=== PATIENT | male | born 1955 | race Caucasian/White ===

== ENCOUNTER 2023-11-17 08:26 | Outpatient (OUT) | payer BC, MEDICARE, SELFPAY ==
[2023-11-17 10:06] LABS: Anion Gap 6.6; Carbon Dioxide 34.9 mmol/L (21.0-32.0); Chloride 102 mmol/L (98-107); Estimated GFR (African America >60 (>=60); Estimated GFR (Non-African Ame >60 (>=60); Glucose 113 mg/dL (74-106); Potassium 3.5 mmol/L (3.5-5.1); Sodium 140 mmol/L (136-145)
[2023-11-17 10:19] LABS: Hematocrit 46.8 % (42.0-54.0); Hemoglobin 15.3 g/dL (14.0-18.0); Mean Corpuscular HGB Conc 32.7 g/dL (29.9-35.2); Mean Corpuscular Hemoglobin 32.6 pg (25.9-34.0); Mean Corpuscular Volume 99.8 fL (80.0-94.0); Mean Platelet Volume 10.4 fL (9.5-13.5); Platelet Count 337 10^3/uL (150-450); Red Blood Count 4.69 10^6/uL (4.70-6.10); Red Cell Distribution Width 13.2 % (11.0-15.0); White Blood Count 24.1 10^3/uL (4.0-11.0)
[2023-11-17 12:01] LABS: Band Neutrophils Absolute 0.5 10^3/uL (0.0-0.3); Eosinophils Absolute Manual 0.24 10^3/uL (0.00-0.70)
[2023-11-17 12:02] LABS: Monocytes Absolute Manual 1.44 10^3/uL (0.30-0.80)
[2023-11-17 12:04] LABS: Lymphocytes Absolute Manual 10.12 10^3/uL (1.20-3.80)
[2023-11-17 13:01] LABS: INR 1.01; Partial Thromboplastin Time 29.3 sec (22.3-36.2); Prothrombin Time 10.7 sec (9.0-11.6)
== END 2023-11-17 08:27 | disposition home or self-care (01) ==
LOC: PST 08:33
PROVIDERS: Visit Provider Internal Medicine
DX: D49.1 Neoplasm of unspecified behavior of respiratory system (principal)
CPT/HCPCS: 80048; 85027; 85610; 85730

== ENCOUNTER 2023-11-25 06:28 | Day surgery (SDC) | payer BC, MEDICARE, SELFPAY ==
[2023-11-17 09:47] VITALS: BP 140/78; PULSE 77; RESP 22; TEMP 36.4; O2SAT 90; BMI 29.0
[2023-11-25] VITALS (17 sets, daily range): BP systolic 83–136; BP diastolic 52–82; PULSE 67–78; RESP 8–23; TEMP 36.6; O2SAT 91–96; BMI 28.7
--- OUTSIDE RECORDS SUMMARY | 2023-11-25 06:30 | XMS_ITS | CCD ---
Author Name Unknown Address [address] [place] [address] Organization [facility] Care Team Providers Care Manager Biologics Name Role Phone Mike Mark Unavailable Unavailable Unavailable Mike Mark Primary Care Physician Usman Ford Attending Unavailable Dr. Landry Rand Referring Unavail able Usman Ford Referring Unavailable Usman Ford Attending Unavailable Sarah Vázquez Unavailable Unavailable SAMSA, RAY Ligia Admitting Unavailable SAMSA RAY P Attending Unavailable KAYLIE RAY P Referring Unavailable NOHELIA CUEVAS Admitting Unavailable NOHELIA CUEVAS Attending Unavailable Andrew CAGLE Attending Unavailable Mika KO Admitting Unavailable Tien Poole Consulting Unavailable Tien Poole Consulting Unavailable Tien Poole Consulting Unavailable SAMSA, RAY P Referring Unavailable SAMSA, RAY P Admitting Unavailable SAMSA RAY P Attending Unavailable Mike Kimbrough Primary Care Provide r USMAN FORD Attending Unavailable MIKE MARK Primary Care Unavailable Allergies Allergy Classification Reported Allergen(s) Allergy Type Date of Onset Reaction(s) Facility (9 sources) Penicillins; Translations: [Penicillins] Allergy to drug (finding) 09-08-2023 [facility] 3 Repository (6 sources) Penicillin; Translations: [penicillin] Drug Allergy [facility] (1 source) Penicillins Drug Allergy 09-08-2023 Unknown [facility] Medications Current Medications Medication Drug Class(es) Dates Sig (Normalized) Sig (Original) [id number] 200 actuat albuterol 0.09 mg/actuat metered dose inhaler (14 sources) beta2-Adrenergic Agonist Start: 03-07-2020 take 2 puff(s) by inhalation every six hours Pro-Air HFA CFC free 90 mcg/inh MDI 2 puff(s), Inhalation, q6hr Shortness of breath or wheezing, 1 EA, Refill(s) 6, 90 mcg, [facility], 180, cm, 03/07/20 8:53:00 EDT, Height/Length Measured, 108.8, kg, 03/07/20 8:53:00 EDT, Weight Measured Start Date: 03/07/20 Status: Ordered take 2 puff(s) by in halation every four hours albuterol 90 mcg/actuation inhaler Inhal e 2 puffs every 4 hours if needed. 0 Active take 1-2 puff(s) by inhalation every four to six hours as needed Albuterol 90 MCG/ACT AERS INHALE 1 TO 2 PUFFS EVERY 4 TO 6 HOURS NEEDED AND DIRECTED. Quantity: 0 Refills: 0 Ordered: 01-Oct-2021 DO Active albuterol 0.833 mg/ml / ipratropium bromide 0.167 mg/ml inhalation solution (9 sources) Anticholinergic, beta2-Adrenergic Agonist take 3 mL by inhalation every four hours as needed ipratropium-albuteroL (Duo-Neb) 0.5-2.5 mg/3 mL nebulizer solution Take 3 mL by nebulization every 4 hours if needed. 0 Active take 1 [IU] by inhal ation every four hours as needed Ipratropium-Albuterol 0.5-2.5 (3) MG/3ML Inhalation Solution USE 1 UNIT DOSE IN NEBULIZER EVERY 4 HOURS NEEDED. Quantity: 0 Refills: 0 Ordered: 01-Oct-2021 DO Active amLODIPine 5 mg oral tablet (1 source) Dihydropyridine Calcium Channel Mike Start: 02-14-2020 take 1 tablet by mouth once daily amLODIPine 5 mg Tab 5 mg = 1 tab(s), Oral, Daily, # 30 tab(s), Refills(s) 1, Pharmacy: [facility], 168, cm, 02/12/20 15:21:00 EDT, Height/Length Measured, 104.1, kg, 02/14/20 5:13:00 EDT, Weight Measured Start Date: 02/14/20 Status: Ordered aspirin 81 mg delayed release oral tablet (14 sources) Platelet Aggregation Inhibitor, Nonsteroidal Anti-inflammatory Drug Start: 01-04-2020 take 1 tablet by mouth once daily aspirin 81 mg Oral EC Tab 81 mg = 1 tab(s), Oral, Daily, Refills(s) 0 Start Date: 01/04/20 Status: Ordered atorvastatin 40 mg oral tablet (14 sources) HMG-CoA Reductase Inhibitor Start: 02-14-2020 take 1 tablet by mouth at bedtime atorvastatin 40 mg Tab 40 mg = 1 tab(s), Oral, Bedtime, # 30 tab(s), Refills(s) 1, Pharmacy: [facility] 1986, 168, cm, 02/12/20 15:21:00 EDT, Height/Length Measured, 104.1, kg, 02/14/20 5:13:00 EDT, Weight Measured Start Date: 02/14/20 Status: Ordered Azithromycin (5 sources) Macrolide Antimicrobial Start: 04-09-2020 azithromycin 250 mg Tab See Instructions, 250 mg on / / Fri, # 12 EA, Refills(s) 3, Pharmacy: [facility], 182, cm, 04/09/20 16:06:00 EDT, Height/Length Measured, 109, kg, 04/09/20 16:06:00 EDT, Weight Measured Start Date: 04/09/20 Status: Ordered Calcium, Magnesium and Zinc oral tablet (5 sources) Start: 01-04-2020 take 2 tablets by mouth once daily Calcium, Magnesium and Zinc oral tablet 2 tab(s), Oral, Daily, Refill(s) 0 Start Date: 01/04/20 Status: Ordered carvedilol 6.25 mg oral tablet (8 sources) alpha-Adrenergic Mike, beta-Adrenergic Mike Start: 10-12-2023 End: 10-11-2024 take 1 tablet by mouth twice daily at mealtime carvedilol (Coreg) 6.25 mg tablet Indications: Primary hypertension Take 1 tablet (6.25 mg) by mouth 2 times a day with meals. 180 tablet 3 10/12/2023 10/11/2024 Active Start: 06-19-2023 take 1 tablet by kimi th twice daily Coreg 6.25 mg Tab 6.25 mg = 1 tab(s), Oral, BID, # 60 tab(s), Refills(s) 0 Start Date: 06/19/23 Status: Ordered Start: 11-25-2022 take 1 tablet by kimi th twice daily Carvedilol 6.25 MG Oral Tablet Take 1 tablet twice daily Quantity: 180 Refills: 3 Ordered: 25-Nov-2022 Usman Ford MD Start : 25-Nov-2022 Active replaces metoprolol famotidine 20 mg oral tablet (9 sources) Histamine-2 Receptor Antagonist End: 11-11-2023 take 1 tablet by mouth once daily famotidine (Pepcid) 20 mg tablet Take 1 tablet (20 mg) by mouth once daily. 0 11/11/2023 Discontinued (Other) 30 actuat fluticasone furoate 0.1 mg/actuat / umeclidinium 0.0625 mg/actuat / vilanterol 0.025 mg/actuat dry powder inhaler (9 sources) Anticholinergic, Corticosteroid, beta2-Adrenergic Agonist Trelegy Ellipta 100-62.5-25 mcg blister with device Inhale see administration instructions. As directed 0 Active folic acid 1 mg oral tablet (9 sources) take 1 tablet by mouth once daily folic acid (Folvite) 1 mg tablet Take 1 tablet (1 mg) by mouth once daily. 0 Active 12 hr guaiFENesin 600 mg extended release oral tablet (4 sources) Start: 06-21-2023 take 2 tablets by mouth twice daily Mucinex 600 mg Tab-ER 1,200 mg = 2 tab(s), Oral, BID, # 20 tab(s), Refills(s) 0, Pharmacy: [facility], 182.9, cm, 06/18/23 18:29:00 EDT, Height/Length Dosing, 100, kg, 06/18/23 18:29:00 EDT, Weight Dosing Start Date: 06/21/23 Status: Ordered ipratropium bromide 0.2 mg/ml inhalation solution (1 source) Anticholinergic Start: 09-17-2023 ipratropium (Atrovent) 0.02 % nebulizer solution lisinopril 5 mg oral tablet (1 source) Angiotensin Converting Enzyme Inhibitor Start: 02-02-2013 take 1 tablet by mouth once daily lisinopril 5 mg Tab 5 mg = 1 tab(s), Oral, Daily, Refills(s) 0, High blood pressure Start Date: 02/02/13 Status: Ordered methylPREDNISolone 4 mg oral tablet (2 sources) Corticosteroid Start: 06-21-2023 End: 06-27-2023 Medrol 4 mg Tab = 1 packet(s), Oral, As Directed, as directed on package labeling, X 6 day(s), # 21 tab(s), Refills(s) 0, Pharmacy: [facility], 182.9, cm, 06/18/23 18:29:00 EDT, Height/Length Dosing, 100, kg, 06/18/23 18:29:00 EDT, Weight Dosing Start Date: 06/21/23 Stop Date: 06/27/23 Status: Ordered 24 hr nicotine 0.583 mg/hr transdermal system (4 sources) Cholinergic Nicotinic Agonist Start: 06-21-2023 nicotine 14 mg/24 hr Transderm ER Film 1 patch(es), TransDermal, Daily, 14 EA, Refill(s) 0, [facility], 182.9, cm, 06/18/23 18:29:00 EDT, Height/Length Dosing, 100, kg, 06/18/23 18:29:00 EDT, Weight Dosing Start Date: 06/21/23 Status: Ordered pentoxifylline 400 mg extended release oral tablet (5 sources) Blood Viscosity Registered Occupational Therapist Start: 04-09-2020 take 1 tablet by mouth three times daily pentoxifylline 400 mg ER Tab 400 mg = 1 tab(s), Oral, TID, # 90 tab(s), Refills(s) 3, Pharmacy: [facility], 182, cm, 04/09/20 16:06:00 EDT, Height/Length Measured, 109, kg, 04/09/20 16:06:00 EDT, Weight Measured Start Date: 04/09/20 Status: Ordered potassium gluconate 2.5 meq oral tablet (1 source) potassium gluconate 595 mg (99 mg) tablet Take by mouth. 0 Active sacubitril 97 mg / valsartan 103 mg oral tablet (14 sources) Angiotensin 2 Receptor Mike Start: 06-19-2023 End: 11-11-2023 take 1 tablet by mouth twice daily Entresto 97-103 mg tablet Indications: Congestive heart failure, NYHA class 2 and ACC/AHA stage C (CMS/HCC) Take 1 tablet by mouth twice daily 180 tablet 3 09/08/2023 Active sildenafil 50 mg oral tablet (6 sources) Phosphodiesterase 5 Inhibitor Start: 01-04-2020 take 1 tablet by mouth once daily as needed sildenafil 50 mg Tab 50 mg = 1 tab(s), Oral, Daily, PRN sexual activity, Refills(s) 0 Start Date: 01/04/20 Status: Ordered spironolactone 25 mg oral tablet (13 sources) Aldosterone Antagonist Start: 06-19-2023 take 1 tablet by mouth once daily spironolactone 25 mg Tab 25 mg = 1 tab(s), Oral, Daily, # 30 tab(s), Refills(s) 0 Start Date: 06/19/23 Status: Ordered take 0.5 tablet by mouth once da sachin spironolactone (Aldactone) 25 mg tablet Take 0.5 tablets (12.5 mg) by mouth once daily. 0 Active Trelegy Ellipta inhalation powder (5 sources) Start: 11-27-2019 take 1 puff(s) by inhalation once daily Trelegy Ellipta inhalation powder = 1 puff(s), Inhalation, Daily, Refills(s) 0 Start Date: 11/27/19 Status: Ordered varenicline 0.5 mg oral tablet (1 source) Partial Cholinergic Nicotinic Agonist take 1 tablet by mouth twice daily varenicline (Chantix) 0.5 mg tablet Take 1 tablet (0.5 mg) by mouth 2 times a day. Take with full glass of water. 0 Active Completed/Discontinued Medications Medication Drug Class(es) Dates Sig (Normalized) Sig (Original) calcium carbonate 1500 mg oral tablet (8 sources) Calcium 600 MG TABS TAKE 1 TABLET DAILY. Quantity: 0 Refills: 0 Ordered: 01-Oct-2021 DO Active cholecalciferol 0.025 mg oral tablet (8 sources) Vitamin D take 1 tablet by mouth once daily Vitamin D3 25 MCG (1000 UT) Oral Tablet TAKE 1 TABLET DAILY. Quantity: 0 Refills: 0 Ordered: 01-Oct-2021 DO Active Magnesium (8 sources) take 1 tablet by mouth once daily Magnesium 400 MG Oral Tablet Take 1 tablet daily Quantity: 0 Refills: 0 Ordered: 01-Oct-2021 DO Active methotrexate 2.5 mg oral tablet (13 sources) Folate Analog Metabolic Inhibitor Start: 06-19-2023 methotrexate 2.5 mg Tab 20 mg = 8 tab(s), Oral, q7day, takes 8 tabs q7 days on Fridays b, # 4 tab(s), Refills(s) 0 Start Date: 06/19/23 Status: Ordered take 6 tablets by mouth every we ek methotrexate (Trexall) 2.5 mg tablet Take 6 tablets (15 mg total) by mouth 1 (one) time per week. 0 Active 24 hr metoprolol succinate 25 mg extended release oral tablet (5 sources) beta-Adrenergic Mkie take 1 tablet by mouth once daily Metoprolol Succinate ER 25 MG Oral Tablet Extended Release 24 Hour TAKE 1 TABLET DAILY. Quantity: 90 Refills: 3 Ordered: 18-Feb-2022 Landry Stockton DO Active potassium 99 mg extended release oral tablet (8 sources) take 1 tablet by mouth once daily Potassium 99 MG Oral Tablet TAKE 1 TABLET DAILY DIRECTED. Quantity: 0 Refills: 0 Ordered: 01-Oct-2021 DO Active Vitamin D3 5000 intl units oral capsule (5 sources) Start: 020 take 1 capsule by mouth once daily at mealtime Vitamin D3 5000 intl units oral capsule 5,000 International_Unit = 1 cap(s), Oral, Daily, with food Start Date: 01/04/20 Status: Ordered Problems Active Problems Problem Classification Problem Date Documented Date Episodic/Chronic Cardiac dysrhythmias (5 sources) Tachycardia 02-03-2014 Episodic Cataract (5 sources) Cataract 06-13-2016 Chronic Chronic obstructive pulmonary disease and bronchiectasis (18 sources) Chronic obstructive lung disease; Translations: [Chronic airway obstruction, not elsewhere classified] Onset: 06-18-2023 01-04-2020 Chronic Congestive heart failure; nonhypertensive (9 sources) Congestive heart failure stage C; Translations: [Congestive heart failure, unspecified] Onset: 09-08-2023 09-08-2023 Chronic Coronary atherosclerosis and other heart disease (13 sources) Arteriosclerotic vascular disease; Translations: [Cardiovascular disease, unspecified] Onset: 06-19-2023 Chronic Disorders of lipid metabolism (18 sources) Hyperlipidemia; Translations: [Other and unspecified hyperlipidemia] Onset: 06-19-2023 01-04-2020 Chronic Essential hypertension (18 sources) Hypertensive disorder; Translations: [Unspecified essential hypertension] Onset: 06-19-2023 01-04-2020 Chronic Neoplasms of unspecified nature or uncertain behavior (5 sources) Neoplastic disease 12-15-2018 Episodic Nonspecific chest pain (10 sources) Chest pain; Translations: [Chest pain, unspecified] Onset: 06-19-2023 Episodic Other circulatory disease (9 sources) H/O: angina pectoris; Translations: [Personal history of other diseases of circulatory system] Onset: 09-08-2023 09-08-2023 Episodic Other inflammatory condition of skin (6 sources) Psoriasis; Translations: [Psoriasis, unspecified] Onset: 06-19-2023 06-13-2016 Chronic Other lower respiratory disease (9 sources) Difficulty breathing; Translations: [Other respiratory abnormalities] Onset: 09-08-2023 09-08-2023 Episodic Other nutritional; endocrine; and metabolic disorders (6 sources) Obesity; Translations: [Obesity, unspecified] Chronic Other nutritional; endocrine; and metabolic disorders (5 sources) Overweight in adulthood with body mass index of 25 or more but less than 30; Translations: [Overweight] Episodic Nazanin-; endo-; and myocarditis; cardiomyopathy (except that caused by tuberculosis or sexually transmitted disease) (12 sources) Cardiomyopathy; Translations: [Other primary cardiomyopathies] Onset: 09-08-2023 11-11-2023 Chronic Peripheral and visceral atherosclerosis (9 sources) Intermittent claudication; Translations: [Peripheral vascular disease, unspecified] Onset: 09-08-2023 09-08-2023 Chronic Screening and history of mental health and substance abuse codes (5 sources) Ex-heavy cigarette smoker (20-39/day) 01-04-2020 Episodic Comment on above: Added secondary to d ocumentation in Social History. Substance-related disorders (16 sources) Smokes tobacco daily; Translations: [Tobacco use disorder] Onset: 09-08-2023 06-18-2023 Chronic Comment on above: 1 PPD; Added secondary to d ocumentation in Social History. Past or Other Problems Problem Classification Problem Date Documented Da te Episodic/Chronic Respiratory failure; insufficiency; arrest (adult) (2 sources) Acute respiratory failure; Translations: [Acute respiratory failure with hypoxia] Onset: 06-19-2023 Episodic Unclassified (1 source) Onset: 11-11-2023 11-11-2023 Results Test Name Value Interpretation Reference Range Facility CT Chest, Low Dose Screening on 11-05-2023 CT Chest, Low Dose Screening Exam Date/Time: 11/05/2023 11:44 EST Reason for Exam: [id number] Report IMPRESSION: IMPRESSION: LUNG RADS 4B: SUSPICIOUS. CHEST CT WITH AND WITHOUT CONTRAST, PET/CT AND/OR TISSUE SAMPLING DEPENDING ON THE PROBABILITY OF MALIGNANCY IN COMORBIDITIES. PET/CT MAY BE USED WITH THERE IS A GREATER THAN OR EQUAL TO 8MM SOLID COMPONENT. 5.6 CM CENTRAL LEFT LOWER LOBE MASS WITH SUSPECTED MEDIASTINAL AND LEFT HILAR ADENOPATHY. SINGLE 4 MM PROBABLE SATELLITE NODULE IN LEFT LOWER LOBE. EXAM: CT CHEST NON-CONTRAST NODULE PROTOCOL CT Chest, Low Dose Screening DATE: 11/05/2023 11:34 AM CLINICAL INDICATION: Initial Lung nodule screening [facility]# [id number] 10/21 TO 11/19//MEDICARE NPCR F17.219 COMPARISON: 01/04/2020 TECHNIQUE: Low-dose helical CT was acquired without intravenous contrast from the lung apices to bases at 5 mm slices with axial reconstruction at 2.5 mm and 2 mm reconstruction in the coronal and sagittal plane. 5 x 2 mm MIP coronal were also generated. All CT scans at this facility use dose modulation, iterative reconstruction, and/or weight based dosing when appropriate to reduce radiation dose to as low as reasonably achievable. Based on ACR recommendations only incidental findings that require additional follow-up will be included in this report. (ACR does not recommend reporting of incidental thyroid nodules detected on CT screening if they are less than 15 mm in diameter). Findings: Lung nodule: 5.6 x 3.6 x 4 cm mass in the central posterior left lower lobe with contact of slightly less than 50% of the adjacent left descending thoracic aorta. Carcinoma of primary concern. Nearby 4 mm probable satellite nodule in the superior segment left lower lobe. No additional lung nodules. Lungs: Minimal chronic apical scarring on the right unchanged from previous CT. Signs of emphysema. Consider low dose cancer screening protocol if not already enrolled in such a program Mediastinum: 1.6 cm subcarinal lymph node probable left hilar lymphadenopathy. Slightly prominent aorticopulmonary and right paratracheal lymph nodes as well. . Pleura: No effusions Report Vascular structures: Thoracic aorta intact Minimal coronary artery calcifications noted. Axilla: Stable small axillary nodes Bones: Negative Upper abdomen: Unremarkable Ordering Provider: , FINAL REPORT Dictated: 11/05/2023 12:13 pm Edward Springer MD Signed (Electronic Signature): 11/05/2023 12:13 pm Signed by: Edward Springer MD Transcribed by: SASKIA Technologist: DHAVAL [facility] Consent for Treatmenton 10-23 Consent for Treatment [id number]#1 .00TIFF [facility] Insurance Correspondenceon 12-21-2022 Insurance Correspondence [id number]# 1.00TIFF [facility] Physician Orderon 10-21-2023 Physician Order [id number]# 1.00TIFF [facility] Pulmonary Function Studieson 09-30-2023 Pulmonary Function Studies SIX-MINUTE WALK TEST: 09/23/2023 At baseline, heart rate is 67, respiratory rate 18, blood pressure 150/87. Dyspnea scale is 0. Fatigue scale is 0. After walking, heart rate is 85, respiratory rate 22, blood pressure 155/97. Dyspnea scale is 5. Fatigue scale is 6. O2 saturation 93% on room air. IMPRESSION: There is no significant oxygen desaturation with exercise. The patient was able to walk 825 feet which is 46% predicted. READ BY: Arabella Greenberg Dictated: 09/29/2023 [id number] Transcribed: 09/30/2023 [facility] Comment on above: Result Comment: Elec tronically Signed By: Carleen CAMERON, Marco X\.br\Date and Time Signed: 09/30/23 16:01 EST Consent for Treatmenton Consent for Treatment [id number]#1 .00TIFF [facility] Respiratory Therapy Noteson 09-23-2023 Respiratory Therapy Notes [id number] #1.00TIFF Normal [facility] Physician Orderon 09-15-2023 Physician Order [id number]#1 .00TIFF Normal [facility] Auto Diffon 08-05-2023 Basophils/100 WBC (Bld) 0.7 % Normal 0.0-2.0 [facility] Comment on above: Order Comment: Order Added by Discern Expert. Performed By: #### [id number] #### [facility] [address] [place] [address] 270[address] Basophils/Leukocytes Auto (Bld) [Pure # fraction] 0.1 E9/L Normal 0.0-0.2 [facility] Comment on above: Order Comment: Order Added by Discern Expert. Performed By: #### 4 [id number] #### [facility] [address] [place] [address]327 Eosinophils/100 WBC (Bld) 2.0 % Normal 0.0-8.0 [facility] Comment on above: Order Comment: Order Added by Discern Expert. Performed By: #### 4 [id number] #### [facility] [address] [place] [address] 10155 Eosinophils/Leukocytes Auto (Bld) [Pure # fraction] 0.4 E9/L Normal 0.0-0.5 [facility] Comment on above: Order Comment: Order Added by Discern Expert. Performed By: #### [id number] #### [facility] [address] [place] [address] 06928 Lymphocytes/100 WBC (Bld) 55.6 % High 14.0-50.0 [facility] Comment on above: Order Comment: Order Added by Discern Expert. Performed By: #### [id number] #### [facility] [address] [place] [address]248 Lymphocytes/Leukocytes Auto (Bld) [Pure # fraction] 9.8 E9/L High 1.0-4.0 [facility] Comment on above: Order Comment: Order Added by Discern Expert. Performed By: #### 4 [id number] #### [facility] [address] [place] [address]907 Monocytes/100 WBC (Bld) 5.3 % Normal 4.0-14.0 [facility] Comment on above: Order Comment: Order Added by Discern Expert. Performed By: #### 4 [id number] #### [facility] [address] [place] [address] 31683 Monocytes/Leukocytes Auto (Bld) [Pure # fraction] 0.9 E9/L Normal 0.2-1.0 [facility] Comment on above: Order Comment: Order Added by Discern Expert. Performed By: #### 4 [id number] #### [facility] [address] [place] [address] 90[address] Neutrophils/100 WBC (Bld) 36.4 % Normal 36.0-75.0 [facility] Comment on above: Order Comment: Order Added by Discern Expert. Performed By: #### 4 [id number] #### [facility] [address] [place] [address] 69322 Neutrophils/Leukocytes Auto (Bld) [Pure # fraction] 6.4 E9/L Normal 2.0-7.5 [facility] Comment on above: Order Comment: Order Added by Discern Expert. Performed By: #### 4 [id number] #### [facility] [address] [place] [address] 39104 CBC w/ Auto Diffon 3 Erythrocyte distribution width (RBC) [Ratio] 14.6 % High 10.9-14.2 [facility] Comment on above: Performed By: #### [id number] #### [facility] [address] [place] [address] 35263 Hematocrit (Bld) [Volume fraction] 43.5 % Normal 37.7-49.0 [facility] Comment on above: Performed By: #### 4 [id number] #### [facility] [address] [place] [address] 10108 Hemoglobin (Bld) [Mass/Vol] 14.2 g/dL Normal 13.5-17.5 [facility] Comment on above: Performed By: #### 4 [id number] #### [facility] [address] [place] [address] MCH (RBC) [Entitic mass] 32.0 pg Normal 27.0-34.0 [facility] Comment on above: Performed By: #### 4 [id number] #### [facility] [address] [place] [address] MCHC (RBC) [Mass/Vol] 32.7 g/dL Normal 31.4-36.[address] [facility] Comment on above: Performed By: #### 4 [id number] #### [facility] [address] [place] [address] MCV (RBC) [Entitic vol] 97.7 fL Normal 80.0-100.0 [facility] Comment on above: Performed By: #### [id number] #### [facility] [address] [place] [address] Platelet mean volume (Bld) [Entitic vol] 7.9 fL Normal 6.4-10.8 [facility] Comment on above: Performed By: #### 4 [id number] #### [facility] [address] [place] [address] Platelets (Bld) [#/Vol] 282.0 E9/L Normal 150.0-500.0 [facility] Comment on above: Performed By: #### 4 [id number] #### [facility] [address] [place] [address] RBC (Bld) [#/Vol] 4.5 E12/L Normal 4.3-5.9 [facility] Comment on above: Performed By: #### 4 [id number] #### [facility] [address] [place] [address] WBC corrected for nucl RBC Auto (Bld) [#/Vol] 17.7 E9/L High 4.0-11.0 [facility] Comment on above: Performed By: #### 4 [id number] #### [facility] [address] [place] [address] CHEMISTRYOrdered By: SYSTEM SYSTEM on 08-05-2023 Albumin [Mass/Vol] 3.4 g/dL Normal 3.3 - 5.0 gm/dL [facility] Remisol Albumin/Globulin [Mass ratio] 1.2 {ratio} Normal 1.1 - 2.2 [facility] Rem[facility] ALP [Catalytic activity/Vol] 65 [iU]/d Normal 21 - 98 Int._Unit/L [facility] Remisol ALT No additional P-5'-P [Catalytic activity/Vol] 25 [iU]/d Normal 6 - 46 Int._Unit/L [facility] Remisol Anion gap [Moles/Vol] 9 mmol/L Normal 6 - 16 mEq/L [facility] AST [Catalytic activity/Vol] 24 [iU]/d Normal 5 - 43 Int._Unit/L [facility] Bilirubin [Mass/Vol] 0.5 mg/dL Normal 0.0 - 1 .1 mg/dL [facility] Calcium [Mass/Vol] 9.2 mg/dL Normal 8.9 - 11. 1 mg/dL [facility] Chloride [Moles/Vol] 103 mmol/L Normal 101 - 1 11 mmol/L [facility] CO2 [Moles/Vol] 32 mmol/L High 21 - 31 mmol/L [facility] Creatinine [Mass/Vol] 0.7 mg/dL Normal 0.5 - 1.3 mg/dL [facility] GFR/1.73 sq M.predicted among non-blacks MDRD (S/P/Bld) [Vol rate/Area] 100 mL/min/1.73 m2 Normal >=59mL/min/1 .73 m2 [facility] S Globulin (S) [Mass/Vol] 2.9 g/dL Normal 1.4 - 4.0 gm/dL [facility] Glucose [Mass/Vol] 109 mg/dL Normal 55 - 199 mg/dL [facility] Potassium [Moles/Vol] 4.1 mmol/L Normal 3.5 - 5.3 mmol/L [facility] Protein [Mass/Vol] 6.3 g/dL Normal 6.0 - 7.8 gm/dL [facility] Sodium [Moles/Vol] 140 mmol/L Normal 135 - 145 mmol/L [facility] Urea nitrogen [Mass/Vol] 13 mg/dL Normal 5 - 21 mg/dL [facility] Urea nitrogen/Creatinine [Mass ratio] 19 mg/mg Normal 10 - 20 [facility] CMPon 08-05-2023 Albumin [Mass/Vol] 3.4 g/dL Normal 3.3-5.0 [facility] Comment on above: Performed By: #### 4 [id number] #### [facility] [address] [place] [address] Albumin/Globulin (S) [Mass conc ratio] 1.2 Normal 1.1-2.2 [facility] Comment on above: Performed By: #### 4 [id number] #### [facility] [address] [place] [address] ALP [Catalytic activity/Vol] 65 Int._Unit/L Normal 21-98 [facility] Comment on above: Performed By: #### 4 [id number] #### [facility] [address] [place] [address] ALT No additional P-5'-P [Catalytic activity/Vol] 25 Int._Unit/L Normal 6-46 [facility] Comment on above: Performed By: #### 4 [id number] #### [facility] [address] [place] [address] Anion gap [Moles/Vol] 9 mmol/L Normal 6-[address] [facility] Comment on above: Performed By: #### 4 [id number] #### [facility] [address] [place] [address] AST [Catalytic activity/Vol] 24 Int._Unit/L Normal 5-43 [facility] Comment on above: Performed By: #### 4 [id number] #### [facility] [address] [place] [address] Bilirubin [Mass/Vol] 0.5 mg/dL Normal 0.0-1.1 [facility] Comment on above: Performed By: #### 4 [id number] #### [facility] [address] [place] [address] Calcium [Mass/Vol] 9.2 mg/dL Normal 8.9-11.1 [facility] Comment on above: Performed By: #### 4 [id number] #### [facility] [address] [place] [address] Chloride [Moles/Vol] 103 mmol/L Normal 101-111 [facility] Comment on above: Performed By: #### 4 [id number] #### [facility] [address] [place] [address] CO2 [Moles/Vol] 32 mmol/L High 21-31 [facility] Comment on above: Performed By: #### 4 [id number] #### [facility] [address] [place] [address] Creatinine [Mass/Vol] 0.7 mg/dL Normal 0.5-1.[address] [facility] Comment on above: Performed By: #### 4 [id number] #### [facility] [address] [place] [address] Globulin (S) [Mass/Vol] 2.9 g/dL Normal 1.4-4.0 [facility] Comment on above: Performed By: #### 4 [id number] #### [facility] [address] [place] [address] Glucose [Mass/Vol] 109 mg/dL Normal 55-199 [facility] Comment on above: Result Comment: If t his glucose result represents a fasting glucose, interpretation should refer to the following reference range: 55-99 mg/dL Performed By: #### 4 [id number] #### [facility] [address] [place] [address] Potassium [Moles/Vol] 4.1 mmol/L Normal 3.5-5.[address] [facility] Comment on above: Performed By: #### 4 [id number] #### [facility] [address] [place] [address] Protein [Mass/Vol] 6.3 g/dL Normal 6.0-7.8 [facility] Comment on above: Performed By: #### 4 [id number] #### [facility] [address] [place] [address] Sodium [Moles/Vol] 140 mmol/L Normal 135-145 [facility] Comment on above: Performed By: #### 4 [id number] #### [facility] [address] [place] [address] Urea nitrogen [Mass/Vol] 13 mg/dL Normal 5-21 [facility] Comment on above: Performed By: #### 4 [id number] #### [facility] [address] [place] [address] Urea nitrogen/Creatinine [Mass ratio] 19 No Units Normal 10-20 [facility] Comment on above: Performed By: #### 4 [id number] #### [facility] [address] [place] [address] Consent for Treatmenton 07-24 Consent for Treatment [id number]#1 .00CD:127 Normal [facility] HEMATOLOGYOrdered By: SYSTEM SYSTEM on 08-05-2023 Basophils/100 WBC (Bld) 0.7 % Normal 0.0 - 2.0 % [facility] Basophils/Leukocytes Auto (Bld) [Pure # fraction] 0.1 E9/L Normal 0.0 - 0.2 E9/L [facility] Eosinophils/100 WBC (Bld) 2.0 % Normal 0.0 - 8.0 % [facility] Eosinophils/Leukocytes Auto (Bld) [Pure # fraction] 0.4 E9/L Normal 0.0 - 0.5 E9/L [facility] Lymphocytes/100 WBC (Bld) 55.6 % High 14.0 - 50.0 % [facility] Lymphocytes/Leukocytes Auto (Bld) [Pure # fraction] 9.8 E9/L High 1.0 - 4.0 E9/L [facility] Monocytes/100 WBC (Bld) 5.3 % Normal 4.0 - 14.0 % [facility] Monocytes/Leukocytes Auto (Bld) [Pure # fraction] 0.9 E9/L Normal 0.2 - 1.0 E9/L [facility] Neutrophils/100 WBC (Bld) 36.4 % Normal 36.0 - 75.0 % [facility] Neutrophils/Leukocytes Auto (Bld) [Pure # fraction] 6.4 E9/L Normal 2.0 - 7.5 E9/L [facility] HEMATOLOGYOrdered By: Zee Zuniga on 08-05-2023 Erythrocyte distribution width (RBC) [Ratio] 14.6 % High 10.9 - 14.2 % [facility] Hematocrit (Bld) [Volume fraction] 43.5 % Normal 37.7 - 49.0 % [facility] Hemoglobin (Bld) [Mass/Vol] 14.2 g/dL Normal 13.5 - 17.5 gm/dL [facility] MCH (RBC) [Entitic mass] 32.0 pg Normal 27.0 - 34.0 pg [facility] MCHC (RBC) [Mass/Vol] 32.7 g/dL Normal 31.4 - 36.0 gm/dL [facility] MCV (RBC) [Entitic vol] 97.7 fL Normal 80.0 - 100.0 fL [facility] Morphology Umesh (Bld) [Interp] Normal (08/05/23 12:54 PM) Normal FT [facility]eManSS Platelet mean volume (Bld) [Entitic vol] 7.9 fL Normal 6.4 - 10.8 fL [facility]eAuto[facility] Platelets (Bld) [#/Vol] 282.0 E9/L Normal 150.0 - 500.0 E9/L [facility] RBC (Bld) [#/Vol] 4.5 E12/L Normal 4.3 - 5.9 E12/L [facility] WBC corrected for nucl RBC Auto (Bld) [#/Vol] 17.7 E9/L High 4.0 - 11.0 E9/L [facility] Morphon 08-05-2023 Morphology Umesh (Bld) [Interp] Normal Normal [facility] Comment on above: Order Comment: Order Added by Discern Expert. Performed By: #### 4 [id number] #### [facility] [address] [place] [address] Physician Orderon 08-05-2023 Physician Order [id number]#1 .00CD:127 Normal [facility] eGFRon 08-05-2023 GFR/1.73 sq M.predicted among non-blacks MDRD (S/P/Bld) [Vol rate/Area] 100 mL/min/1.73 m2 Normal >=59 [facility] Comment on above: Order Comment: Order added by Discern Expert. Result Comment: Toolroom Clerk neha kidney disease could be indicated at eGFR's of less than 60 mL/min/1.73m2. Kidney failure is indicated at less than 15 mL/min/1.73m2. Performed By: #### 4 [id number] #### [facility] [address] [place] [address] Prescriptions/Work Noteson 0 06-23-2023 Prescriptions/Work Notes [id number]#1 .00CD:127 Normal [facility] Discharge Instructionson Discharge Instructions [id number]# 1.00CD:127 Normal [facility] Insurance Correspondence Off iceon 06-22-2023 Insurance Correspondence Office [id number]# 1.00CD:127 [facility] Message from Medicareon 05-25 Message from Medicare [id number]# 1.00CD:127 Normal [facility] BMPon 06-21-2023 Anion gap [Moles/Vol] 11 mmol/L Normal 6-[address] [facility] Comment on above: Performed By: #### 2 [id number], [id number], [id number], 3784756, 1072905, [id number] #### [facility] [address] [place] [address] Calcium [Mass/Vol] 8.4 mg/dL Low 8.9-11.1 [facility] Comment on above: Performed By: #### 2 066145, [id number], 8989804, 5058796, 7585431, [id number] #### [facility] [address] [place] [address] Chloride [Moles/Vol] 100 mmol/L Low 101-111 [facility] Comment on above: Performed By: #### 2 684805, [id number], 1099803, 7048067, 6409093, [id number] #### [facility] [address] [place] [address] CO2 [Moles/Vol] 31 mmol/L Normal 21-31 [facility] Comment on above: Performed By: #### 2 915184, [id number], 0304873, 2614500, 0347972, [id number] #### [facility] [address] [place] [address] Creatinine [Mass/Vol] 0.6 mg/dL Normal 0.5-1.[address] [facility] Comment on above: Performed By: #### 2 128991, [id number], [id number], 5127445, 1890683, [id number] #### [facility] [address] [place] [address] Glucose [Mass/Vol] 141 mg/dL Normal 55-199 [facility] Comment on above: Result Comment: If t his glucose result represents a fasting glucose, interpretation should refer to the following reference range: 55-99 mg/dL Performed By: #### 2 805698, [id number], 5816666, 4899691, 0175877, [id number] #### [facility] [address] [place] [address] Potassium [Moles/Vol] 4.3 mmol/L Normal 3.5-5.[address] [facility] Comment on above: Performed By: #### 2 621795, [id number], 2973202, 8130692, 6900545, [id number] #### [facility] [address] [place] [address] Sodium [Moles/Vol] 138 mmol/L Normal 135-145 [facility] Comment on above: Performed By: #### 2 763799, [id number], 8078910, 8258076, 2751851, [id number] #### [facility] [address] [place] [address] Urea nitrogen [Mass/Vol] 16 mg/dL Normal 5-21 [facility] Comment on above: Performed By: #### 2 575723, 40494576, 5693528, 2432345, 0639460, [id number] #### [facility] [address] [place] [address] Urea nitrogen/Creatinine [Mass ratio] 27 No Units High 10-20 [facility] Comment on above: Performed By: #### 2 936944, 93601759, 9401692, 9549388, 0432950, [id number] #### [facility] [address] [place] [address] CHEMISTRYOrdered By: SYSTEM SYSTEM on 06-21-2023 Anion gap [Moles/Vol] 11 mmol/L Normal 6 - 16 mEq/L [facility] Remisol Calcium [Mass/Vol] 8.4 mg/dL Low 8.9 - 11. 1 mg/dL [facility] Chloride [Moles/Vol] 100 mmol/L Low 101 - 1 11 mmol/L [facility] CO2 [Moles/Vol] 31 mmol/L Normal 21 - 31 mmol/L [facility] Creatinine [Mass/Vol] 0.6 mg/dL Normal 0.5 - 1.3 mg/dL [facility] GFR/1.73 sq M.predicted among non-blacks MDRD (S/P/Bld) [Vol rate/Area] 105 mL/min/1.73 m2 Normal >=59mL/min/1 .73 m2 [facility] Chem S Glucose [Mass/Vol] 141 mg/dL Normal 55 - 199 mg/dL [facility] Potassium [Moles/Vol] 4.3 mmol/L Normal 3.5 - 5.3 mmol/L [facility] Sodium [Moles/Vol] 138 mmol/L Normal 135 - 145 mmol/L [facility] Urea nitrogen [Mass/Vol] 16 mg/dL Normal 5 - 21 mg/dL [facility] Urea nitrogen/Creatinine [Mass ratio] 27 mg/mg High 10 - 20 [facility] ED Note-Physicianon 06-21-20 ED Note-Physician Basic Information Time Seen: Mary Beth Montalvo PA-C 06/18/2023 18:21 Chief Complaint Pt states severe SOB that started yesterday. Getting worse today. Saw PCP and placed on home meds, but still feeling SOB. Pt. tachypneic in triage. History of Present Illness 67-year-old male past medical history of COPD presents to the ED complain shortness of breath. Patient reports symptoms started yesterday. Reports dry cough and shortness of breath and wheezing. Saw his PCP this morning and started on oral azithromycin and prednisone but is not feeling any better so he came to the ED for further evaluation. Patient denies fevers or chills, no recent hospitalizations. Denies any chest pain, abdominal pain, nausea, vomiting. Review of Systems All organ systems are reviewed. Pertinent positive and negative findings as mentioned in the HPI. Physical Exam Vitals & Measurements T: 37.4 ?C(Tympanic) HR: 100(Monitored) RR: 22 BP: 120/79 SpO2: 95% HT: 182.88 cm WT: 100 kg BMI: 29.9 GENERAL APPEARANCE: Sitting up on side of bed, tachypneic, pursed lip breathing. Talking in short sentences. HEAD: normocephalic, atraumatic EYES: PERRL, EOMI. Vision is grossly intact. EARS: External auditory canals clear, hearing grossly intact. NOSE: No nasal discharge. THROAT: Oral cavity and pharynx normal. Oral mucosa moist. CARDIAC: Normal heart sounds, no murmurs. Rhythm is regular. LUNGS: Diminished breath sounds posteriorly bilaterally with diffuse expiratory wheezing. ABDOMEN: Soft, nondistended, nontender. No guarding or rebound. MUSCULOSKELETAL: Adequately aligned spine. ROM intact spine and extremities. No joint erythema or tenderness. NEUROLOGICAL: CN grossly intact. Strength and sensation symmetric and intact throughout. SKIN: Skin normal color, texture and turgor with no lesions or eruptions. Assessment/Plan 1. COPD exacerbation (J44.1: Chronic obstructive pulmonary disease with (acute) exacerbation) 2. Respiratory failure, acute and chronic (J96.20: Acute and chronic respiratory failure, unspecified whether with hypoxia or hypercapnia) Orders: ED Physician consult Hospitalist for continued care 67-year-old male with past medical history of COPD presents to the ED complaining of shortness of breath. In the ED patient is afebrile, initially hypoxic to the high 80s, tachycardic and normotensive. Patient was seen by PCP this morning, started on azithromycin and prednisone, took 1 dose of each orally. Labs reviewed and noted, ABG shows a pH of 7.398, mild hypercapnia with a pH of 45.1, and hypoxemia with a PaO2 of 58.4. Patient placed on 3 liters nasal cannula. Opponent negative x2, EKG without acute ST elevation or depression. Patient treated with additional Solu-Medrol in the ED as well as DuoNebs for his COPD exacerbation. Case was discussed with the hospitalist was agreeable to admission. Patient agreeable to plan. Medications Administered Given albuterol 0.083% Inh Juliet 3 mL, 2.5 mg, Inhalation DuoNeb 2.5 mg-0.5 mg/3 mL Soln-Inh, 3 mL, Inhalation methylPREDNISolone 125 mg preservative-free injection (SOLU-MEDROL), 125 mg, IV Push Disposition Plan Patient Discharge Condition Improved, stable Discharge Disposition Admit to hospitalist Discharge Prescription List Prescriptions No active prescription medications Follow-up No qualifying data available Attestation Patient was treated and evaluated by the Physician Pelt Shearer. The attending physician was in the Emergency Department at all times and supervised care. The case was discussed with the attending physician and diagnostics were reviewed as needed. Problem List/Past Medical History Ongoing COPD Former heavy cigarette smoker (20-39 per day) HTN - Hypertension Hyperlipemia Historical Rapid heart rate Procedure/Surgical History LEFT FOOT SKIN ADVANCE FLAP WITH EXCISION OF NEOPLASM (12/23/2018), left cataract extraction with IOL implant (07/01/2016), Cataract Extraction with IOL placement - OD. (06/19/2016), left upper arm surgery. Medications Inpatient No active inpatient medications Home amLODIPine 5 mg Tab, 5 mg= 1 tab(s), Oral, Daily, 1 refills aspirin 81 mg Oral EC Tab, 81 mg= 1 tab(s), Oral, Daily atorvastatin 40 mg Tab, 40 mg= 1 tab(s), Oral, Bedtime, 1 refills azithromycin 250 mg Tab, See Instructions, 3 refills Calcium, Magnesium and Zinc oral tablet, 2 tab(s), Oral, Daily lisinopril 5 mg Tab, 5 mg= 1 tab(s), Oral, Daily pentoxifylline 400 mg ER Tab, 400 mg= 1 tab(s), Oral, TID, 3 refills Pro-Air HFA CFC free 90 mcg/inh MDI, 2 puff(s), Inhalation, q6hr, PRN, 6 refills sildenafil 50 mg Tab, 50 mg= 1 tab(s), Oral, Daily, PRN Trelegy Ellipta inhalation powder, 1 puff(s), Inhalation, Daily Vitamin D3 5000 intl units oral capsule, 5000 International_Unit= 1 cap(s), Oral, Daily Allergies penicillin (Hives) Social History Alcohol - Denies Alcohol Use, 11/27/2019 Substance Abuse - Denies Substance Abuse, 11/27/2019 Tobacco - Medium Ri (more content not included)... Normal [facility] Comment on above: Result Comment: Elec tronically Signed By: Mary Beth Montalvo PA-C\.br\Date and Time Signed: 06/18/23 22:42 EDT\.br\Electronically Co-Signed By: Yulia Mendoza M.D.\.br\Date and Time Co-Signed: 06/21/23 07:06 EDT Inpatient Patient Summaryon 06-21-2023 Inpatient Patient Summary YAW HEADLEY :1955 Visit Date:06/18/2023 Inpatient Discharge Instructions Your Care Team Admitting Physician - Mika KO DO Consulting Physician - Tien Poole Jr., PA-C Reason for Your Visit SOB, increased work of breathing Your Diagnosis Acute hypoxemic respiratory failure COPD exacerbation Chest pain Coronary artery disease Hypertension Hyperlipidemia Psoriasis Shortness of breath Tests Performed Automated Diff B-Type Natriuretic Peptide Blood Gas Art, with Lytes, Gluc, Lact BMP BMP CBC w/ Auto Diff eGFR Lactic Acid Manual Diff Path. Review Procalcitonin PT & PTT Sputum Culture -- Results Pending -- Troponin 0 Hr. Troponin 3 Hr. Troponin 6 Hr. Troponin 9 Hr. XR Chest Single View Please visit your patient portal for your results or contact your primary care physician. This Is Your Medications List albuterol (Pro-Air HFA CFC free 90 mcg/inh MDI) aspirin (aspirin 81 mg Oral EC Tab) atorvastatin (atorvastatin 40 mg Tab) azithromycin (azithromycin 250 mg Tab) carvedilol (Coreg 6.25 mg Tab) cholecalciferol (Vitamin D3 5000 intl units oral capsule) fluticasone/umeclidin ium/vilanterol (Trelegy Ellipta inhalation powder) guaifenesin (Mucinex 600 mg Tab-ER) methotrexate (methotrexate 2.5 mg Tab) methylPREDNISolone (Medrol 4 mg Tab) multivitamin with minerals (Calcium, Magnesium and Zinc oral tablet) nicotine (nicotine 14 mg/24 hr Transderm ER Film) pentoxifylline (pentoxifylline 400 mg ER Tab) sacubitril-valsartan (Entresto 97 mg-103 mg oral tablet) sildenafil (sildenafil 50 mg Tab) spironolactone (spironolactone 25 mg Tab) [Image Removed: STOP]Stop taking these medications amlodipine (amLODIPine 5 mg Tab) lisinopril (lisinopril 5 mg Tab) predniSONE (predniSONE 20 mg Tab) Procedure History LEFT FOOT SKIN ADVANCE FLAP WITH EXCISION OF NEOPLASM (12/23/2018), left cataract extraction with IOL implant (07/01/2016), Cataract Extraction with IOL placement - OD. (06/19/2016), left upper arm surgery. Discharge Vitals Temperature (Axillary) 36.8 ?C Heart Rate (Monitored) 85 Respiratory Rate 20 Blood Pressure 123/73 Weight 96.2 kg What to do next Instructions From Your Doctor Event Name Event Result Discharge Activity Ambulate as tolerated Discharge Restrictions No restrictions Discharge Diet(s) Low Sodium- 2000 mg Pending Diagnostic Test Results None Pharmacy Information [facility] New Follow Up Appointments after Discharge Follow Up with Mike Mark When: In 0 days Where: [address] [place] [address], [address] [place] [address]- Business (1) Medications What How Much When Why Instructions Next Dose New guaifenesin (Mucinex 600 mg Tab-ER) 2 Tablets By Mouth 2 times a day Pickup at [facility] 06/22pm New methylPREDNISolone (Medrol 4 mg Tab) 1 Packets By Mouth As Directed Duration: 6 Days as directed on package labeling Pickup at [facility] 06/22 New nicotine (nicotine 14 mg/ 24 hr Transderm ER Film) 1 Patches Transdermal Every day Pickup at [facility] 06/22 Unchanged albuterol (Pro-Air HFA CFC free 90 mcg/ inh MDI) 2 Puffs Inhalation Every 6 hours as needed for Shortness of breath or wheezing 90 mcg every 6 hours as needed for shortness of breath or wheezing Unchanged aspirin (aspirin 81 mg Oral EC Tab) 1 Tablets By Mouth Every day 06/22 Unchanged atorvastatin (atorvastatin 40 mg Tab) 1 Tablets By Mouth At bedtime Coronary artery disease 06/21 900pm Unchanged azithromycin (azithromycin 250 mg Tab) See instructions COPD 250 mg on / / 06/22 Unchanged carvedilol (Coreg 6.25 mg Tab) 1 Tablets By Mouth 2 times a day 06/21 900pm Unchanged cholecalciferol (Vitamin D3 5000 intl units oral capsule) 1 Capsules By Mouth Every day with food 06/22 Unchanged fluticasone/ umeclidinium/ vilanterol (Trelegy Ellipta inhalation powder) 1 Puffs Inhalation Every day 06/22 Unchanged methotrexate (methotrexate 2.5 mg Tab) 8 Tablets By Mouth Every 7 days takes 8 tabs q7 days on Fridays b 06/26 900am Unchanged multivitamin with minerals (Calcium, Magnesium and Zinc oral tablet) 2 Tablets By Mouth Every day 06/22 Unchanged pentoxifylline (pentoxifylline 400 mg ER Tab) 1 Tablets By Mouth 3 times a day Cardiomyopathy 06/21 0200pm Unchanged sacubitril-valsartan (Entresto 97 mg-103 mg oral tablet) 1 Tablets By Mouth 2 times a day 06/21 900pm Unchanged sildenafil (sildenafil 50 mg Tab) 1 Tablets By Mouth Every day as needed for sexual activity Every day as needed for sexual activity Unchanged spironolactone (spironolactone 25 mg Tab) 1 Tablets By Mouth Every day 07/31 0900am Pharmacy Information [facility]: [address] [place], [place] [id number] [phone] What How Much When Why Comments Stop Taking amlodipine (amL (more content not included)... Normal [facility] Monitor Recordon 06-21-2023 Monitor Record [id number]# 1.00CD:127 Normal [facility] eGFRon 06-21-2023 GFR/1.73 sq M.predicted among non-blacks MDRD (S/P/Bld) [Vol rate/Area] 105 mL/min/1.73 m2 Normal >=59 [facility] Comment on above: Order Comment: Order added by Discern Expert. Result Comment: Toolroom Clerk neha kidney disease could be indicated at eGFR's of less than 60 mL/min/1.73m2. Kidney failure is indicated at less than 15 mL/min/1.73m2. Performed By: #### 2 [id number], [id number], 0254826, 7074222, [id number], [id number] #### [facility] [address] [place] [address] Monitor Recordon 06-20-2023 Monitor Record [id number]# 1.00CD:127 Normal [facility] Monitor Record [id number]# 1.00CD:127 Normal [facility] Monitor Record [id number]# 1.00CD:127 [facility] Monitor Record [id number]# 1.00CD:127 Normal [facility] Progress Note-Physicianon Progress Note-Physician Basic Information 61-year-old white male past medical history hypertension, hyperlipidemia, chronic COPD, nicotine abuse who present emergency room shortness of breath. Assessment and plan 1. COPD exacerbation (J44.1: Chronic obstructive pulmonary disease with (acute) exacerbation) Seen and examined Clinically better Less SOB Less wheezing On nasal cannula 2 L Saturation 94% Continue albuterol Atrovent nebulizer Continue Solu-Medrol 40 mg IV every 8 Continue with azithromycin Lasix IV one time Mucinex twice daily Possible discharge tomorrow Desat study in the morning 2. Chest pain (R07.9: Chest pain, unspecified) Pleuritic chest pain Resolved Troponin were negative 3. Coronary artery disease (I25.10: Atherosclerotic heart disease of [place] coronary artery without angina pectoris) ASA daily Lipitor daily 4. Hypertension (I10: Essential (primary) hypertension) On Entresto 5. Hyperlipidemia (E78.5: Hyperlipidemia, unspecified) Lipitor daily 6. Psoriasis (L40.9: Psoriasis, unspecified) On Methotrexate Subjective Doing better Less SOB Less wheezing No chest pain No fever Review of Systems Constitutional: no fever, no chills, no sweats, no weakness Respiratory: mild shortness of breath, no cough, no orthopnea, mild wheezing Cardiovascular: no chest pain, no palpitations, no edema Additional ROS info: Except as noted in the above Review of Systems and in the History of Present Illness all other systems have been reviewed and are negative or noncontributory. Objective Vitals & Measurements T: 36.6 ?C(Axillary) TMIN: 36.3 ?C(Axillary) TMAX: 36.6 ?C(Axillary) HR: 93(Monitored) RR: 23 BP: 133/73 SpO2: 94% WT: 95.8 kg Intake & Output This visit (24 hour periods starting at 07:00 EDT) 06/20/23 * 06/19/23 06/18/23 Total Summary Intake mL 250 721.91 4.5 Output mL -- -- -- Fluid Balance 250 721.91 4.5 Intake (5) Generic Diluent, magnesium sulfate mL -- 50 -- Oral Intake mL -- 240 -- Sodium Chloride 0.9% intravenous solution 1,000 mL mL -- 178.91 -- Sodium Chloride 0.9%, azithromycin mL 250 250 -- methylPREDNISolone mL -- 3 4.5 Total 250 721.91 4.5 Output (0) Counts (1) Urine Count -- 1 -- * This column has not completed the indicated time period. Physical Exam General: alert, no acute distress Skin: warm, dry Head: no trauma, normocephalic Neck: Trachea midline, no adenopathy, no tenderness Eye: normal conjunctiva, sclera clear ENMT: TM's clear, oral mucosa moist, no pharyngeal erythema or exudate Cardiovascular: regular rate and rhythm, normal peripheral perfusion Respiratory: Lungs expiratory wheezes, respirations non labored Chest wall: no deformity. Gastrointestinal: soft, non distended, no tenderness, no guarding. Back: No tenderness, Normal ROM, Normal alignment. Extremities: no deformity, no trauma Neurological: oriented x 4, LOC appropriate for age, CN II-XII intact, motor strength equal & normal bilaterally, sensation equal & normal bilaterally, speech normal Psychiatric: cooperative, affect appropriate for age, normal judgement, normal psychiatric thoughts. Lab Results BNP: 84 pg/mL High (06/19/23 11:36:00) Problem List/Past Medical History Ongoing COPD Former heavy cigarette smoker (20-39 per day) HTN - Hypertension Hyperlipemia Smoker Historical Rapid heart rate Medications Inpatient acetaminophen 325 mg Tab, 325 mg= 1 tab(s), Oral, q4hr, PRN acetylcysteine 10% Inhalation Juliet 4 mL, 200 mg= 2 mL, Inhalation, BID albuterol 0.083% Inh Juliet 3 mL, 2.5 mg= 3 mL, NEB, q2hr, PRN aspirin 81 mg Oral EC Tab, 81 mg= 1 tab(s), Oral, Daily atorvastatin 40 mg Tab, 40 mg= 1 tab(s), Oral, Bedtime azithromycin additive + Sodium Chloride 0.9% intravenous solution 250 mL Colace 100 mg Cap, 100 mg= 1 cap(s), Oral, Daily, PRN DuoNeb 2.5 mg-0.5 mg/3 mL Soln-Inh, 3 mL, NEB, QID heparin 5000 units/mL Inj, 5000 unit(s)= 1 mL, SubCutaneous, BID methotrexate 2.5 mg Tab, 20 mg= 8 tab(s), Oral, q7day methylPREDNISolone 40 mg preservative-free injection (SOLU-MEDROL), 40 mg= 1 mL, IV Push, q8hr Mucinex 600 mg Tab-ER, 1200 mg= 2 tab(s), Oral, BID nicotine 14 mg/24 hr Transderm ER Film, 14 mg= 1 patch(es), TransDermal, Daily NS 1000 mL Soln-IV 1,000 mL, 1000 mL, IV remove patch, 1 patch(es), Topical, Daily sacubitril-valsartan 24 mg-26 mg oral tablet, 4 tab(s), Oral, BID spironolactone 25 mg Tab, 25 mg= 1 tab(s), Oral, Daily Zofran 4 mg/2 mL Injection, 4 mg= 2 mL, IV Push, q6hr, PRN Home amLODIPine 5 mg Tab, 5 mg= 1 tab(s), Oral, Daily, 1 refills, Not taking aspirin 81 mg Oral EC Tab, 81 mg= 1 tab(s), Oral, Daily atorvastatin 40 mg Tab, 40 mg= 1 tab(s), Oral, Bedtime, 1 refills azithromycin 250 mg Tab, See Instructions, 3 refills Calcium, Magnesium and Zinc oral tablet, 2 tab(s), Oral, Daily Coreg 6.25 mg Tab, 6.25 mg= 1 tab(s), Oral, BID (more content not included)... Normal [facility] Comment on above: Result Comment: Elec tronically Signed By: RUBEN CAMERON, Andrew\.br\Date and Time Signed: 06/20/23 11:05 EDT Progress Note-Physician Basic Information Pt is a 67y M with past medical history significant for severe COPD (last PFTs 03/12, FEV1 35%), HFrEF, PVD, HLD, and HTN who presented to the ED on 06/18 with complaints of worsening SOB which started an hour or so [employer]. Pt reports that around 1700 yesterday he began experiencing SOB at rest. He also reports some chest pain which started at the same time. He described his chest pain as pressure-like and without radiation. He reports that his chest pain improved after taking a breathing treatment. He states that he has had a mildly productive cough recently. Pt reports that he saw his PCP earlier in the day with complaints of SOB and was prescribed azithromycin and prednisone. Pt denies any fevers, chills, nausea, vomiting, or diarrhea. In the ED, pt was found to be in respiratory distress and hypoxemic on RA. He was placed on 2L NC with improvement. ABG on RA revealed pH 7.39, pCO2 45, and pO2 58. Laboratory workup revealed WBC 18.5k, but otherwise unremarkable. CXR without acute infiltrates. Pt was started on steroids, bronchodilators, and azithromycin and admitted to the hospitalist service for further management. Pulmonary was consulted to assist in management of the pt's acute hypoxemic respiratory failure. 06/19: Pt is currently on 3L NC. He is visibly dyspneic at rest. Nursing staff reports that the pt had significant JENKINS. Pt reports that he is having a cough with some productive sputum. He denies any other complaints at this time 06/20 patient afebrile overnight, remains on 3 L nasal cannula. Lung sounds with diffuse rhonchi and wheezes throughout, nonproductive cough. Remains on methylprednisone 40 3 times daily. Encouraged incentive spirometry use Objective Vitals & Measurements T: 36.6 ?C(Axillary) TMIN: 36.3 ?C(Axillary) TMAX: 36.6 ?C(Axillary) HR: 90(Monitored) RR: 23 BP: 133/73 SpO2: 91% WT: 95.8 kg Intake & Output This visit (24 hour periods starting at 07:00 EDT) 06/20/23 * 06/19/23 06/18/23 Total Summary Intake mL -- 721.91 4.5 Output mL -- -- -- Fluid Balance -- 721.91 4.5 Intake (5) Generic Diluent, magnesium sulfate mL -- 50 -- Oral Intake mL -- 240 -- Sodium Chloride 0.9% intravenous solution 1,000 mL mL -- 178.91 -- Sodium Chloride 0.9%, azithromycin mL -- 250 -- methylPREDNISolone mL -- 3 4.5 Total -- 721.91 4.5 Output (0) Counts (1) Urine Count -- 1 -- * This column has not completed the indicated time period. Physical Exam General: No acute distress, on 3 L nasal cannula Skin: Warm, dry. Flushed. Head: Atraumatic, normocephalic Neck: Trachea midline, no adenopathy, no tenderness Eye: PERRL, sclera anicteric ENMT: Moist mucous membranes Cardiovascular: Tachycardic. No murmurs, rubs, or gallops. No BLE edema. Respiratory: Dyspneic with minimal exertion. Diffuse rhonchi and wheezing b/l, poor air exchange. No stridor. + accessory muscle use. Chest wall: No deformity Gastrointestinal: Soft, non-tender, non-distended Back: No tenderness Extremities: No deformity Neurological: Awake and alert. Following commands. No focal deficit appreciated. Psychiatric: Cooperative. Affect appropriate for age. Lab Results BNP: 84 pg/mL High (06/19/23 11:36:00) Images No qualifying data available. Assessment/Plan Acute hypoxemic respiratory failure (J96.01: Acute respiratory failure with hypoxia) Suspect 2/2 AECOPD H/o severe COPD (last PFTs 03/12, FEV1 35%) Smoker Plan: - Currently on 3L NC - Titrate O2 for sats 90-95% - Continue bronchodilators and mucomyst - Decrease solumedrol to 40mg q8h - D/c budesonide - Procal neg, no acute infiltrates on CXR - Send sputum cx and atypical w/u-pending - Continue azithromycin - Encourage IS and OOB - Encourage smoking cessation Cardiovascular -history of CAD, hypertension, hyperlipidemia Problem List/Past Medical History Ongoing COPD Former heavy cigarette smoker (20-39 per day) HTN - Hypertension Hyperlipemia Smoker Historical Rapid heart rate Medications Inpatient acetaminophen 325 mg Tab, 325 mg= 1 tab(s), Oral, q4hr, PRN acetylcysteine 10% Inhalation Juliet 4 mL, 200 mg= 2 mL, Inhalation, BID albuterol 0.083% Inh Juliet 3 mL, 2.5 mg= 3 mL, NEB, q2hr, PRN aspirin 81 mg Oral EC Tab, 81 mg= 1 tab(s), Oral, Daily atorvastatin 40 mg Tab, 40 mg= 1 tab(s), Oral, Bedtime azithromycin additive + Sodium Chloride 0.9% intravenous solution 250 mL Colace 100 mg Cap, 100 mg= 1 cap(s), Oral, Daily, PRN DuoNeb 2.5 mg-0.5 mg/3 mL Soln-Inh, 3 mL, NEB, QID heparin 5000 units/mL Inj, 5000 unit(s)= 1 mL, SubCutaneous, BID methotrexate 2.5 mg Tab, 20 mg= 8 tab(s), Oral, q7day methylPREDNISolone 40 mg preservative-free injection (SOLU-MEDROL), 40 mg= 1 mL, IV Push, q8hr Mucinex 600 mg Tab-ER, 1200 mg= 2 tab(s), Oral, BID nicotine 14 mg/24 hr Transderm ER Film, 14 mg= 1 patch(es), TransDermal, Daily NS 1000 mL Soln-IV 1,000 mL, 1000 (more content not included)... Normal [facility] Comment on above: Result Comment: Elec tronically Signed By: Sunshine KEATING, Siria\.mak\Date and Time Signed: 06/20/23 10:58 EDT Auto Diffon 06-19-2023 Basophils/100 WBC (Bld) 0.1 % Normal 0.0-2.0 [facility] Comment on above: Order Comment: Order Added by Discern Expert. Performed By: #### 2 [id number], [id number], 6597766, 2384796, 3696560, 40420140, 3456522, 52681952, 34765918 ####[facility] [address] [place] [address] Basophils/Leukocytes Auto (Bld) [Pure # fraction] 0.0 E9/L Normal 0.0-0.2 [facility] Comment on above: Order Comment: Order Added by Discern Expert. Performed By: #### 2 [id number], 55505932, 8829789, 8888362, 9970408, 43274206, 0612571, 55114198, 14959894 ####[facility] [address] [place] [address] Eosinophils/100 WBC (Bld) 0.0 % Normal 0.0-8.0 [facility] Comment on above: Order Comment: Order Added by Discern Expert. Performed By: #### 2 [id number], 06856682, 0183390, 7157572, 5873958, 25029346, 3829452, 96126027, 02596485 ####[facility] [address] [place] [address] Eosinophils/Leukocytes Auto (Bld) [Pure # fraction] 0.0 E9/L Normal 0.0-0.5 [facility] Comment on above: Order Comment: Order Added by Discern Expert. Performed By: #### 2 [id number], 18591916, 5603633, 5021006, 5064847, 82954742, 1154959, 09236592, 55444716 ####[facility] [address] [place] [address] Lymphocytes/100 WBC (Bld) 37.0 % Normal 14.0-50.0 [facility] Comment on above: Order Comment: Order Added by Discern Expert. Performed By: #### 2 [id number], 00409969, 1158392, 9101214, 1009619, 44920788, 2891873, 99877661, 23312240 ####[address] [place] [address] Lymphocytes/Leukocytes Auto (Bld) [Pure # fraction] 6.6 E9/L High 1.0-4.0 [facility] Comment on above: Order Comment: Order Added by Discern Expert. Performed By: #### 2 [id number], 44689607, 7230235, 4863830, 0445451, 94240839, 3219233, 55370642, 85160244 ####[address] [place] [address] Monocytes/100 WBC (Bld) 1.6 % Low 4.0-14.0 [facility] Comment on above: Order Comment: Order Added by Discern Expert. Performed By: #### 2 [id number], 19883320, 8359926, 2507429, 3399486, 83642277, 5819709, 86200145, 43505637 ####[address] [place] [address] Monocytes/Leukocytes Auto (Bld) [Pure # fraction] 0.3 E9/L Normal 0.2-1.0 [facility] Comment on above: Order Comment: Order Added by Discern Expert. Performed By: #### 2 [id number], 85656451, 1131706, 7253675, 0005029, 94645193, 4860087, 80473167, 01639643 ####[address] [place] [address] Neutrophils/100 WBC (Bld) 61.3 % Normal 36.0-75.0 [facility] Comment on above: Order Comment: Order Added by Discern Expert. Performed By: #### 2 [id number], 44499614, 3081696, 2814552, 6147872, 97236152, 7001536, 22141288, 50397870 ####[facility] [address] [place] [address] Neutrophils/Leukocytes Auto (Bld) [Pure # fraction] 11.0 E9/L High 2.0-7.5 [facility] Comment on above: Order Comment: Order Added by Discern Expert. Performed By: #### 2 [id number], 40572788, 9667808, 0910556, 4594633, 34655486, 9850349, 60289453, 61513653 ####[facility] [address] [place] [address] BMPon 06-19-2023 Anion gap [Moles/Vol] 9 mmol/L Normal 6-[address] [facility] Comment on above: Performed By: #### 2 [id number], 44279490, 1619372, 5817644, 0611596, 28655277, 7699403, 67488477, 44967988 ####[facility] [address] [place] [address] Calcium [Mass/Vol] 8.4 mg/dL Low 8.9-11.1 [facility] Comment on above: Performed By: #### 2 [id number], 23493924, 6644214, 0061267, 1611212, 95944799, 8839349, 47919400, 43770561 ####[facility] [address] [place] [address] Chloride [Moles/Vol] 101 mmol/L Normal 101-111 [facility] Comment on above: Performed By: #### 2 [id number], 34480088, 8666251, 9431567, 6664945, 30287914, 5293694, 29914861, 73979425 ####[facility] [address] [place] [address] CO2 [Moles/Vol] 27 mmol/L Normal 21-31 [facility] Comment on above: Performed By: #### 2 401183544, 85304546, 1093180, 2750408, 9413978, 31178620, 5364083, 35189320, 12281031 ####[facility] [address] [place] [address] Creatinine [Mass/Vol] 0.7 mg/dL Normal 0.5-1.[address] [facility] Comment on above: Performed By: #### 2 557244427, 00271579, 6250516, 1591720, 3271776, 65818052, 7149969, 65223904, 47903786 ####[facility] [address] [place] [address] Glucose [Mass/Vol] 156 mg/dL Normal 55-199 [facility] Comment on above: Result Comment: If t his glucose result represents a fasting glucose, interpretation should refer to the following reference range: 55-99 mg/dL Performed By: #### 2 [id number], 33870981, 0173911, 2931011, 8041489, 26815442, 3474842, 28799386, 28104061 ####[facility] [address] [place] [address] Potassium [Moles/Vol] 4.1 mmol/L Normal 3.5-5.[address] [facility] Comment on above: Performed By: #### 2 357529991, 83142341, 9910799, 5149093, 5672414, 17090585, 8103111, 66335395, 25551553 ####[facility] [address] [place] [address] Sodium [Moles/Vol] 133 mmol/L Low 135-145 [facility] Comment on above: Performed By: #### 2 242259185, 27754175, 0345103, 8613423, 7386269, 45495843, 5096589, 18583284, 48953783 ####[facility] [address] [place] [address] Urea nitrogen [Mass/Vol] 14 mg/dL Normal 5-21 [facility] Comment on above: Performed By: #### 2 [id number], 03400239, 0389979, 5886619, 9444584, 30272963, 9304110, 23409966, 88121559 ####[facility] [address] [place] [address] Urea nitrogen/Creatinine [Mass ratio] 20 No Units Normal 10-20 [facility] Comment on above: Performed By: #### 2 [id number], 89664910, 4193127, 3467307, 8980909, 75750325, 5304029, 42454449, 41742493 ####[facility] [address] [place] [address] BNPon 06-19-2023 Natriuretic peptide B (Bld) [Mass/Vol] 84 pg/mL High 5-80 [facility] Comment on above: Performed By: #### 1 2406809 ####[facility] [address] [place] [address] CBC w/ Auto Diffon Erythrocyte distribution width (RBC) [Ratio] 13.7 % Normal 10.9-14.2 [facility] Comment on above: Performed By: #### 2 [id number], 41435883, 5764744, 8115590, 4749008, 48010941, 4338275, 38190388, 96710409 #### [facility] [address] [place] [address] Hematocrit (Bld) [Volume fraction] 49.5 % High 37.7-49.0 [facility] Comment on above: Performed By: #### 2 023222853, 26440385, 2863167, 8246888, 9761983, 13186491, 0840363, 49275830, 13581620 #### [facility] [address] [place] [address] Hemoglobin (Bld) [Mass/Vol] 16.1 g/dL Normal 13.5-17.5 [facility] Comment on above: Performed By: #### 2 650773367, 53712306, 6262754, 0730083, 9150887, 60725631, 2018996, 22465746, 80635107 #### [facility] [address] [place] [address] MCH (RBC) [Entitic mass] 32.4 pg Normal 27.0-34.0 [facility] Comment on above: Performed By: #### 2 101289253, 33617120, 7306342, 4548925, 7737142, 70161810, 1565430, 81187049, 44749052 #### [facility] [address] [address] MCHC (RBC) [Mass/Vol] 32.4 g/dL Normal 31.4-36.[address] [facility] Comment on above: Performed By: #### 2 300340508, 25272592, 0231348, 5520203, 3314747, 21845623, 9841300, 09717002, 57085183 #### [facility] [address] [place] [address] MCV (RBC) [Entitic vol] 100.0 fL Normal 80.0-100.0 [facility] Comment on above: Performed By: #### 2 445366122, 08334272, 0512747, 7734280, 1197507, 35011562, 5518311, 51293430, 01704620 #### [facility] [address] [place] [address] Platelet mean volume (Bld) [Entitic vol] 8.4 fL Normal 6.4-10.8 [facility] Comment on above: Performed By: #### 2 338224671, 71502762, 2116908, 7192843, 4943791, 46686230, 0028813, 22757439, 14493631 #### [facility] [address] [place] [address] Platelets (Bld) [#/Vol] 270.0 E9/L Normal 150.0-500.0 [facility] Comment on above: Performed By: #### 2 602921275, 07103292, 8606225, 5417993, 4847560, 96486612, 2656690, 50933390, 66910331 #### [facility] [address] [place] [address] RBC (Bld) [#/Vol] 5.0 E12/L Normal 4.3-5.9 [facility] Comment on above: Performed By: #### 2 922316562, 03987367, 8685305, 7029384, 8047518, 45886920, 8953648, 80919854, 19981991 #### [facility] [address] [place] [address] WBC corrected for nucl RBC Auto (Bld) [#/Vol] 17.9 E9/L High 4.0-11.0 [facility] Comment on above: Performed By: #### 2 [id number], 68203516, 0028719, 5711641, 0656787, 54838060, 6609612, 13916294, 99243175 #### [facility] [address] [place] [address] CHEMISTRYOrdered By: Anamika Khan on 06-19-2023 Natriuretic peptide B (Bld) [Mass/Vol] 84 pg/mL High 5 - 80 pg/mL [facility] CHEMISTRYOrdered By: [employer] on 06-19-2023 Anion gap [Moles/Vol] 9 mmol/L Normal 6 - 16 mEq/L [facility] Calcium [Mass/Vol] 8.4 mg/dL Low 8.9 - 11. 1 mg/dL [facility] Chloride [Moles/Vol] 101 mmol/L Normal 101 - 1 11 mmol/L [facility] CO2 [Moles/Vol] 27 mmol/L Normal 21 - 31 mmol/L [facility] Creatinine [Mass/Vol] 0.7 mg/dL Normal 0.5 - 1.3 mg/dL [facility] GFR/1.73 sq M.predicted among non-blacks MDRD (S/P/Bld) [Vol rate/Area] 100 mL/min/1.73 m2 Normal >=59mL/min/1 .73 m2 FT Chem S Glucose [Mass/Vol] 156 mg/dL Normal 55 - 199 mg/dL [facility] Remisol Potassium [Moles/Vol] 4.1 mmol/L Normal 3.5 - 5.3 mmol/L [facility]isol Procalcitonin ng/mL Normal 0.00 - 0.50 ng/mL [facility] Sodium [Moles/Vol] 133 mmol/L Low 135 - 145 mmol/L [facility] Remisol Troponin I.cardiac [Mass/Vol] 8.30 pg/mL Low 15.90 - 38.40 pg/mL [facility] Urea nitrogen [Mass/Vol] 14 mg/dL Normal 5 - 21 mg/dL [facility] Remisol Urea nitrogen/Creatinine [Mass ratio] 20 mg/mg Normal 10 - 20 [facility] Remisol Troponin I.cardiac [Mass/Vol] 6.20 pg/mL Low 15.90 - 38.40 pg/mL [facility] Remisol COAGULATIONOrdered By: Kareen Ace on 06-19-2023 aPTT Coag (PPP) [Time] 34.2 s Normal 25.1 - 36.5 second(s) [facility] Auto Coag INR Coag (PPP) [Relative time] 1.3 {INR} Invalid Interpretation Code [facility] Auto Coag PT Coag (PPP) [Time] 14.1 s High 9.4 - 1 2.5 second(s) [facility] Auto Coag ED Clinical Summaryon 2022 ED Clinical Summary [address] [address] ED Clinical Summary Person Information Name: YAW HEADLEY Samantha/[facility] Age: 67 Years : 1955 Sex: Male Language: Indonesian PCP: Mike Mark CNP Marital Status: Phone: [phone] Visit Id: Visit Reason: Shortness of breath; SOB Speciality: Acuity: 2 Enc Type: Observation Med Service: Emergency Arrival: 06/18/2023 18:18:13 Discharge: LOS: 000 04:25 Checkin: 06/18/2023 18:18:13 Checkout: 06/18/2023 22:43:11 Dispo Type: Admitted as IP to this [facility] EVENTS: Event Name Event Status Request Date/Time Start Date/Time Complete Date/Time Arrive Complete 06/18/2023 18:18:13 06/18/2023 18:18:13 06/18/2023 18:18:13 Document Home Meds Request 06/18/2023 18:18:13 Triage Complete 06/18/2023 18:18:13 06/18/2023 18:29:17 06/18/2023 18:29:17 Bed Assign Complete 06/18/2023 18:19:57 06/18/2023 18:19:57 06/18/2023 18:19:57 Dr Exam Complete 06/18/2023 18:19:57 06/18/2023 18:21:15 06/18/2023 18:21:15 RN Exam Complete 06/18/2023 18:19:57 06/18/2023 19:19:07 06/18/2023 19:19:07 Registration Complete 06/18/2023 18:21:15 06/18/2023 18:33:38 06/18/2023 18:33:38 EKG Complete 06/18/2023 18:21:28 06/18/2023 18:25:55 Meds Admin Complete 06/18/2023 18:31:44 06/18/2023 21:19:35 Pending Labs Request 06/18/2023 18:31:44 RT Tx/ABG Complete 06/18/2023 18:31:44 06/18/2023 19:29:48 06/18/2023 19:29:48 Lab Inlab 06/18/2023 18:31:44 X-Ray Complete 06/18/2023 18:31:44 06/18/2023 19:01:06 06/18/2023 19:07:20 RT Tx/ABG Complete 06/18/2023 18:31:45 06/18/2023 19:29:28 06/18/2023 19:29:28 RT Tx/ABG Complete 06/18/2023 18:31:46 06/18/2023 19:29:51 06/18/2023 19:29:51 Meds Admin Complete 06/18/2023 18:32:07 06/18/2023 18:34:41 RT Tx/ABG Complete 06/18/2023 18:32:08 06/18/2023 19:29:24 06/18/2023 19:29:24 RT Tx/ABG Complete 06/18/2023 18:32:08 06/18/2023 19:29:56 06/18/2023 19:29:56 Reg Complete Request 06/18/2023 18:33:38 Dr Exam Complete 06/18/2023 18:42:30 06/18/2023 18:42:30 06/18/2023 18:42:30 Registration Complete 06/18/2023 18:42:30 06/18/2023 19:22:54 06/18/2023 19:22:54 Pending Labs Complete 06/18/2023 18:50:43 06/18/2023 18:50:43 06/18/2023 19:08:32 Lab Complete 06/18/2023 18:50:43 06/18/2023 18:50:43 06/18/2023 19:08:32 Wet Read Request 06/18/2023 19:07:20 Pending Labs Complete 06/18/2023 19:15:12 06/18/2023 19:15:12 06/18/2023 19:15:19 Lab Complete 06/18/2023 19:15:12 06/18/2023 19:15:12 06/18/2023 19:15:19 Possible SIRS Request 06/18/2023 19:25:28 Pending Labs Complete 06/18/2023 20:34:50 06/18/2023 20:34:50 06/18/2023 20:34:51 Consult Request 06/18/2023 21:12:47 Hospitalist Consult Request 06/18/2023 21:12:47 Patient Care Request 06/18/2023 21:13:50 Patient Care Request 06/18/2023 21:13:50 Patient Care Request 06/18/2023 21:13:51 Patient Care Request 06/18/2023 21:13:51 Bed Request Request 06/18/2023 21:38:26 Reg Bed Request Request 06/18/2023 21:38:26 Admit Request 06/18/2023 21:38:26 ADDRESS: [address] [place], [place] [address]Richie [facility] [phone] PHYS DOC NOTES: MEDICAL INFORMATION: Prescriptions Given: Medications to Continue with No Changes Other Medications albuterol (Pro-Air HFA CFC free 90 mcg/inh MDI) 2 Puffs Inhalation every 6 hours as needed Shortness of breath or wheezing. 90 mcg. Refills: 6. amlodipine (amLODIPine 5 mg Tab) 1 Tablets By Mouth every day. Refills: 1. aspirin (aspirin 81 mg Oral EC Tab) 1 Tablets By Mouth every day. atorvastatin (atorvastatin 40 mg Tab) 1 Tablets By Mouth at bedtime. Refills: 1. azithromycin (azithromycin 250 mg Tab) 250 mg on / / Thu. Refills: 3. cholecalciferol (Vitamin D3 5000 intl units oral capsule) 1 Capsules By Mouth every day. with food. fluticasone/umeclidin ium/vilanterol (Trelegy Ellipta inhalation powder) 1 Puffs Inhalation every day. lisinopril (lisinopril 5 mg Tab) 1 Tablets By Mouth every day. multivitamin with minerals (Calcium, Magnesium and Zinc oral tablet) 2 Tablets By Mouth every day. pentoxifylline (pentoxifylline 400 mg ER Tab) 1 Tablets By Mouth 3 times a day. Refills: 3. sildenafil (sildenafil 50 mg Tab) 1 Tablets By Mouth every day as needed sexual activity. PATIENT EDUCATION INFORMATION: Instructions: Follow up: DIAGNOSIS: 1:COPD exacerbation; 2:Respiratory failure, acute and chronic Normal [facility] ED Patient Education Noteon 06-19-2023 ED Patient Education Note Normal [facility] ED Patient Summaryon 023 ED Patient Summary [place] [id number] Patient Discharge Instructions Person Information Name: YAW HEADLEY Age: 67 Years Arrival Date: 06/18/2023 18:18:13 Discharge Diagnosis: 1:COPD exacerbation; 2:Respiratory failure, acute and chronic Primary Care Physician: Mike Mark CNP Provider Information Primary Provider: Yulia Mendoza M.D. Advanced Media Relations Coordinator:Mary Beth Montalvo PA-C The exam and treatment you received in the Emergency Department were for an urgent problem and are not intended as complete care. It is important that you follow up with a doctor, nurse practitioner, or physician?s operations administrative assistant for ongoing care. If your symptoms become worse or you do not improve as expected and you are unable to reach your usual health care provider, you should return to the Emergency Department. We are available 24 hours a day. YAW HEADLEY has been given the following list of patient education materials, prescriptions and follow-up instructions: Follow-up Instructions: In the event that this physician does not participate in your insurance network, please consult with your insurance company to find a nearby participating provider. Patient Education Materials: A MESSAGE TO ALL PATIENTS REGARDING OPIOIDS PRESCRIPTION OPIOIDS: WHAT YOU NEED TO KNOW Prescription opioids can be used to help relieve joluztjn-qx-ofqwny pain and are often prescribed following a surgery or injury, or for certain health conditions. These medications can be an important part of the treatment but also come with serious risks. It is important to work with your healthcare provider to make sure you are getting the safest, most effective care. WHAT ARE THE RISKS AND SIDE EFFECTS OF OPIOID USE? Prescription opioids carry serious risks of addiction and overdose, especially with prolonged use. An opioid overdose, often marked by slowed breathing, can cause sudden . The use of prescription opioids can have a number of side effects as well, even when taken as directed: ? Tolerance?meaning you might need to take more of the medication for the same pain relief ? Physical dependence?meaning you have symptoms of withdrawal when a medication is stopped ? Increased sensitivity to pain ? Constipation ? Nausea, vomiting, and dry mouth ? Sleepiness and dizziness ? Confusion ? Depression ? Low levels of testosterone that can result in lower sex drive, energy, and strength ? Itching and sweating RISKS ARE GREATER WITH: ? History of drug misuse, substance use disorder, or overdose ? Mental health conditions (such as depression or anxiety) ? Sleep apnea ? Older age (65 years and older) ? Avoid alcohol while taking prescription opioids. Also, unless specifically advised by your health care provider, medications to avoid include: ? Benzodiazepines (such as Xanax or Valium) ? Muscle relaxants (such as Soma or Flexeril) ? Hypnotics (such as Ambien or Lunesta) ? Other prescription opioids KNOW YOUR OPTIONS Talk to your health care provider about ways to manage your pain that don?t involve prescription opioids. Some of these options may actually work better and have fewer risks and side effects. Options may include: ? Pain relievers such as acetaminophen, ibuprofen, and naproxen ? Some medication that are also used for depression or seizures ? Physical therapy and exercise ? Cognitive behavioral therapy, a psychological, goal-directed approach, in which patients learn how to modify physical, behavioral, and emotional triggers of pain and stress. IF YOU ARE PRESCRIBED OPIOIDS FOR PAIN: ? Never take opioids in greater amounts or more often than prescribed. ? Follow up with your primary health care provider. o Work together to create a plan on how to manage your pain. o Talk about ways to help manage your pain that don?t involve prescription opioids. o Talk about any and all concerns and side effects. ? Help prevent misuse and abuse o Never sell or share prescription opioids. o Never use another person?s prescription opioids. ? Store prescription opioids in a secure place and out of reach of others (this may include visitors, children, friends, and family). ? Safely dispose of unused prescription opioids: Find your community drug take-back program or your pharmacy mail-back program, or flush them down the toilet, following guidance from the Food and Drug Administration (www.fda.gov/Drugs/Re sourcesForYou). ? Visit www.cdc.gov/drugoverd ose to learn about the risks of opioids abuse and overdose. ? If you believe you may be struggling with addiction, tell your health care analyst and ask for guidance or call SAMHSA?S National Helpline at 3-425-399-QMPR. v Source: US Department of Health and Human Services/Center for Disease Control & Prevention [facility] (more content not included)... Normal [facility] HEMATOLOGYOrdered By: Ashlyn Ace on 06-19-2023 Band form neutrophils/100 WBC (Bld) 0 % Normal 0 - 10 % [facility] Basophils/100 WBC (Bld) 0 % Normal 0 - 2 % [facility] Eosinophils/100 WBC (Bld) 0 % Normal 0 - 8 % [facility] Erythrocyte distribution width (RBC) [Ratio] 13.7 % Normal 10.9 - 14.2 % [facility] Hematocrit (Bld) [Volume fraction] 49.5 % High 37.7 - 49.0 % [facility] Hemoglobin (Bld) [Mass/Vol] 16.1 g/dL Normal 13.5 - 17.5 gm/dL [facility] Lymphocytes/100 WBC (Bld) 13 % Low 14 - 50 % [facility] MCH (RBC) [Entitic mass] 32.4 pg Normal 27.0 - 34.0 pg [facility] MCHC (RBC) [Mass/Vol] 32.4 g/dL Normal 31.4 - 36.0 gm/dL [facility] MCV (RBC) [Entitic vol] 100.0 fL Normal 80.0 - 100.0 fL [facility] Monocytes/100 WBC (Bld) 1 % Low 4 - 14 % [facility] Morphology Umesh (Bld) [Interp] Normal (06/19/23 4:04 AM) Normal [facility] Platelet mean volume (Bld) [Entitic vol] 8.4 fL Normal 6.4 - 10.8 fL [facility] Platelets (Bld) [#/Vol] 270.0 E9/L Normal 150.0 - 500.0 E9/L [facility] RBC (Bld) [#/Vol] 5.0 E12/L Normal 4.3 - 5.9 E12/L [facility] Segmented neutrophils/100 WBC (Bld) 68 % Normal 36 - 75 % [facility] Variant lymphocytes LM Ql (Bld) 18 % High <=0% [facility] WBC corrected for nucl RBC Auto (Bld) [#/Vol] 17.9 E9/L High 4.0 - 11.0 E9/L [facility] HEMATOLOGYOrdered By: SYSTEM SYSTEM on 06-19-2023 Basophils/100 WBC (Bld) 0.1 % Normal 0.0 - 2.0 % [facility] Basophils/Leukocytes Auto (Bld) [Pure # fraction] 0.0 E9/L Normal 0.0 - 0.2 E9/L [facility] Eosinophils/100 WBC (Bld) 0.0 % Normal 0.0 - 8.0 % [facility] Eosinophils/Leukocytes Auto (Bld) [Pure # fraction] 0.0 E9/L Normal 0.0 - 0.5 E9/L [facility] Lymphocytes/100 WBC (Bld) 37.0 % Normal 14.0 - 50.0 % [facility] Lymphocytes/Leukocytes Auto (Bld) [Pure # fraction] 6.6 E9/L High 1.0 - 4.0 E9/L [facility] Monocytes/100 WBC (Bld) 1.6 % Low 4.0 - 14.0 % [facility] Monocytes/Leukocytes Auto (Bld) [Pure # fraction] 0.3 E9/L Normal 0.2 - 1.0 E9/L [facility] Neutrophils/100 WBC (Bld) 61.3 % Normal 36.0 - 75.0 % [facility] Neutrophils/Leukocytes Auto (Bld) [Pure # fraction] 11.0 E9/L High 2.0 - 7.5 E9/L [facility] HEMATOLOGYOrdered By: Prachi Thomas on 06-19-2023 Path Review Granulocytic and lymphocytic leukocytosis with monocytosis of indeterminate etiology. No increase of basophils or eosinophils. Clinical correlation and follow-up is recommended as clinically.[id number]. Michelle Thomas Invalid Interpretation Code [facility] Interdisciplinary Note - Waldo e Manageron 06-19-2023 Interdisciplinary Note - Stem Roller Or Crusher Operator CRM to room. Patient is in Bathroom getting assistance washing up. Will come back at later time CRM did go back to patient room. Patient is alert and oriented. Patient is SOB when speaking with CRM. Patient verified PCP, home DME and insurance. Patient is from home with his spouse. [place] will transport [place]. Patient is here as observation. [facility] form completed. Patient is here with SOB/ COPD. Patient will be seen by Pulmonology consult. Patient was rounded on with DR Cagle, see notes. Patient WBC count elevated on admission. Patient is wearing oxygen via [place] and he does not wear this at home. Patient denied DC needs for DME, HH or PM. Patient was provided CRM contact, white board updated. Anticipated DC TBD. CRM following Normal [facility] Comment on above: Result Comment: Elec tronically Signed By: Kim Bartlett\.br\Date and Time Signed: 06/19/23 13:22 EDT Manual Diffon 06-19-2023 Band form neutrophils/100 WBC (Bld) 0 % Normal 0-10 [facility] Comment on above: Performed By: #### 2 [id number], 87518572, 3607719, 5662849, 2830198, 23481555, 2170549, 81307357, 18524118 ####[facility] [address] [place] [address] Basophils/100 WBC (Bld) 0 % Normal 0-2 [facility] Comment on above: Performed By: #### 2 [id number], 87608061, 7977802, 1681726, 3806337, 56751831, 6100985, 04803700, 98828598 ####[facility] [address] [place] [address] Eosinophils/100 WBC (Bld) 0 % Normal 0-8 [facility] Comment on above: Performed By: #### 2 [id number], 65149353, 8162105, 8278928, 1494887, 38588986, 6113412, 37438987, 34077633 ####[facility] [address] [place] [address] Lymphocytes/100 WBC (Bld) 13 % Low 14-50 [facility] Comment on above: Performed By: #### 2 189048092, 93045107, 5741410, 5283918, 9518877, 91041679, 0173704, 01442187, 11981873 ####[facility] [address] [place] [address] Monocytes/100 WBC (Bld) 1 % Low 4-14 [facility] Comment on above: Performed By: #### 2 [id number], 37227115, 7399746, 2634402, 4403669, 33577829, 8863697, 34263943, 18057895 ####[facility] [address] [place] [address] Morphology Umesh (Bld) [Interp] Normal Normal [facility] Comment on above: Performed By: #### 2 [id number], 58506789, 1998037, 7130190, 2134784, 34890800, 5960895, 01161460, 25239946 ####[address] [place] [address] Segmented neutrophils/100 WBC (Bld) 68 % Normal 36-75 [facility] Comment on above: Performed By: #### 2 [id number], 72413307, 6378204, 1507702, 7446473, 32078332, 0263764, 02758423, 30516689 ####[address] [place] [address] Variant lymphocytes LM Ql (Bld) 18 % High <=0 [facility] Comment on above: Performed By: #### 2 [id number], 23378572, 8163949, 8416245, 9996175, 84002478, 5350409, 06570396, 91959699 ####[facility] [address] [place] [address] Monitor Recordon 06-19-2023 Monitor Record [id number]# 1.00CD:127 Normal [facility] Monitor Record [id number]# 1.00CD:127 Normal [facility] Monitor Record [id number]# 1.00CD:127 Normal [facility] Monitor Record [id number]# 1.00CD:127 Normal [facility] PT & PTTon 06-19-2023 aPTT Coag (PPP) [Time] 34.2 second(s) Normal 25.1-36.5 [facility] Comment on above: Result Comment: Para meter 15 days - 4 weeks 1 - 5 months 6 - 11 months 1 - 5 years 6 - 10 years 11 - 17 years PTT Mean: 35.4 (27.6-45.6) Mean: 33.5 (24.8-40.7) Mean: 32.4 (25.1-40.7) Mean: 31.6 (24.0-39.2) Mean: 31.6 (26.9-38.7) Mean: 31.0 (24.6-38.4) Pediatric Reference ranges were obtained from a study by Seamus Salazar et al. prepared from 1437 samples obtained at 7 different centers using the same coagulation reagent and instrumentation as [facility]. Currently there are no coagulation studies available worldwide for children to 14 days, and no normal ranges. Heparin therapeutic range (represented by Anti-Factor Xa activity of 0.2 - 0.4 U/mL) corresponds to PTT of 56.6 - 109.0 sec. Performed By: #### 2 [id number], 36314187, 6713153, 3541041, 6573209, 30483145, 6763594, 18942089, 04707781 ####[facility] [address] [facility] [place] [address] INR Coag (PPP) [Relative time] 1.3 {INR} Invalid Interpretation Code [facility] Comment on above: Result Comment: INR results are specifically intended to assess patients stabilized on long-term Anticoagulation therapy suggested INR?s ?Less Intensive Anticoagulation? 2.0 ? 3.0 Conventional Range 3.0 ? 4.5 Performed By: #### 2 [id number], 26377956, 7831971, 0956663, 0060734, 46576432, 6908151, 35045961, 36480033 ####[facility] [address] [facility] [place] [address] PT Coag (PPP) [Time] 14.1 second(s) High 9.4-12.5 [facility] Comment on above: Result Comment: 15 d ays - 4 weeks 1 - 5 months 6 -11 months 1 ? 5 years 6 ? 10 years 11 -17 years Mean: 11.2 (9.5 ? 12.6) Mean: 11.0 (9.7 ? 12.8) Mean: 11.0 (9.8 ? 13.0) Mean: 11.3 (9.9 ? 13.4) Mean: 11.7 (10.0 ? 14.6) Mean: 11.8 (10.0 - 14.1) Pediatric Reference ranges were obtained from a study by Seamus Salazar et al. prepared from 1437 samples obtained at 7 different centers using the same coagulation reagent and instrumentation as [facility]. Currently there are no coagulation studies available worldwide for children to 14 days, and no normal ranges. Performed By: #### 2 [id number], 70836627, 6144869, 8690750, 3879011, 79803575, 4187807, 42302877, 18348402 ####[facility] [address] [place] [address] Path. Reviewon 06-19-2023 Path Review Granulocytic and lymphocytic leukocytosis with monocytosis of indeterminate etiology. No increase of basophils or eosinophils. Clinical correlation and follow-up is recommended as clinically. Invalid Interpretation Code [facility] Comment on above: Order Comment: Order Added by Discern Expert. Performed By: #### 2 [id number], 83167910, 1013433, 2644682, 3217661, 96123296, 5007653, 95760995, 13757888 ####[facility] [address] [place] [address] Procalcitoninon 06-19-2023 Procalcitonin <.05 Normal .00-.50 [facility] Comment on above: Result Comment: <0.5 ng/mL Low risk of severe sepsis and/or shock >2.0 ng/mL High risk of severe sepsis and/or shock Concentrations under 0.5 ng/mL do not exclude local infections or systemic infections in their initial stages (e.g.. under six hours from onset of illness). PCT concentrations between 0.5 and 2.0 ng/mL should be interpreted with consideration of the patient's history. In this range, it is recommended to retest PCT within 6 to 24 hours. Performed By: #### 2 [id number], 89851325, 1558643, 7935877, 0849802, 71303667, 1748579, 29663970, 78853204 ####[facility] [address] [place] [address] Troponin 3 Hr.on 06-19-2023 Troponin I.cardiac [Mass/Vol] 7.00 pg/mL Low 15.90-38.40 [facility] Comment on above: Result Comment: The 95% CI (Confidence Interval) PPV (Positive Predictive Value) for myocardial infarction in females is 38 pg/mL, in males 51 pg/mL. The results should be used in conjunction with clinical conditions of myocardial infarction. (Access High Sensitivity Troponin I Instructions For Use, [employer], June 2018) Performed By: #### 1 [id number] ####[address] [place] [address] Troponin 6 Hr.on 06-19-2023 Troponin I.cardiac [Mass/Vol] 6.20 pg/mL Low 15.90-38.40 [facility] Comment on above: Result Comment: The 95% CI (Confidence Interval) PPV (Positive Predictive Value) for myocardial infarction in females is 38 pg/mL, in males 51 pg/mL. The results should be used in conjunction with clinical conditions of myocardial infarction. (Access High Sensitivity Troponin I Instructions For Use, [employer], June 2018) Performed By: #### 4 [id number] #### [address] [address] Troponin 9 Hr.on 06-19-2023 Troponin I.cardiac [Mass/Vol] 8.30 pg/mL Low 15.90-38.40 [facility] Comment on above: Result Comment: The 95% CI (Confidence Interval) PPV (Positive Predictive Value) for myocardial infarction in females is 38 pg/mL, in males 51 pg/mL. The results should be used in conjunction with clinical conditions of myocardial infarction. (Access High Sensitivity Troponin I Instructions For Use, [employer], June 2018) Performed By: #### 2 [id number], 20973529, 4066767, 8509599, 2720565, 17361213, 7636600, 96975871, 03638788 ####[facility] [address] [place] [address] XR Chest Single Viewon 06-19 XR Chest Single View Exam Date/Time: 06/18/2023 19:07 EDT Reason for Exam: Shortness of breath (SOB) Report IMPRESSION: No acute radiographic abnormality. EXAMINATION: XR Chest Single View Clinical History: Shortness of breath (SOB) Comparison: 02/11/2020. RESULT: Hyperinflated lungs. No focal consolidation. No large pleural effusion. No pneumothorax. Stable cardiomediastinal silhouette. No acute osseous findings. Degenerative changes. Ordering Provider: Jonathan Everett FINAL REPORT Dictated: 06/19/2023 8:45 am Romel Montejo MD. Signed (Electronic Signature): 06/19/2023 8:45 am Signed by: Romel Montejo MD Transcribed by: SASKIA Technologist: GOPAL Technical Comments Radiation Dose: Ka,r in mGy = na DAP = na Normal [facility] eGFRon 06-19-2023 GFR/1.73 sq M.predicted among non-blacks MDRD (S/P/Bld) [Vol rate/Area] 100 mL/min/1.73 m2 Normal >=59 [facility] Comment on above: Order Comment: Order added by Discern Expert. Result Comment: Toolroom Clerk neha kidney disease could be indicated at eGFR's of less than 60 mL/min/1.73m2. Kidney failure is indicated at less than 15 mL/min/1.73m2. Performed By: #### 2 [id number], 70173744, 9221019, 8853206, 2324954, 97068438, 3202447, 96205170, 82570624 ####[facility] [address] [place] [address] Auto Diffon 06-18-2023 Basophils/100 WBC (Bld) 0.2 % Normal 0.0-2.0 [facility] Comment on above: Order Comment: Order Added by Discern Expert. Performed By: #### 2 611244, 93153824, 2661567, 1470122, 3586028, 92166955 #### [facility] [address] [place] [address] Basophils/Leukocytes Auto (Bld) [Pure # fraction] 0.0 E9/L Normal 0.0-0.2 [facility] Comment on above: Order Comment: Order Added by Discern Expert. Performed By: #### 2 025598, 24784277, 7252985, 7692574, 4567985, 60095419 #### [facility] [address] [place] [address] Eosinophils/100 WBC (Bld) 0.0 % Normal 0.0-8.0 [facility] Comment on above: Order Comment: Order Added by Discern Expert. Performed By: #### 2 630054, 21504301, 1464436, 4808320, 4548176, 37275564 #### [facility] [address] [place] [address] Eosinophils/Leukocytes Auto (Bld) [Pure # fraction] 0.0 E9/L Normal 0.0-0.5 [facility] Comment on above: Order Comment: Order Added by Discern Expert. Performed By: #### 2 272850, 91160787, 3335190, 8557615, 1333549, 72672976 #### [facility] [address] [place] [address] Lymphocytes/100 WBC (Bld) 27.1 % Normal 14.0-50.0 [facility] Comment on above: Order Comment: Order Added by Discern Expert. Performed By: #### 2 672553, 02375571, 0073577, 1327020, 4401621, 76363797 #### [facility] [address] [place] [address] Lymphocytes/Leukocytes Auto (Bld) [Pure # fraction] 5.0 E9/L High 1.0-4.0 [facility] Comment on above: Order Comment: Order Added by Discern Expert. Performed By: #### 2 318987, 91268745, 2922188, 0583811, 4127602, 80694417 #### [facility] [address] [place] [address] Monocytes/100 WBC (Bld) 2.9 % Low 4.0-14.0 [facility] Comment on above: Order Comment: Order Added by Discern Expert. Performed By: #### 2 822533, 75921654, 7473114, 5350077, 2778750, 18204480 #### [facility] [address] [place] [address] Monocytes/Leukocytes Auto (Bld) [Pure # fraction] 0.5 E9/L Normal 0.2-1.0 [facility] Comment on above: Order Comment: Order Added by Discern Expert. Performed By: #### 2 906475, 85792780, 2175372, 4116716, 1510347, 59290546 #### [facility] [address] [place] [address] Neutrophils/100 WBC (Bld) 69.8 % Normal 36.0-75.0 [facility] Comment on above: Order Comment: Order Added by Discern Expert. Performed By: #### 2 533603, 75471747, 7672561, 4455718, 1671538, 60404063 #### [facility] [address] [place] [address] Neutrophils/Leukocytes Auto (Bld) [Pure # fraction] 12.9 E9/L High 2.0-7.5 [facility] Comment on above: Order Comment: Order Added by Discern Expert. Performed By: #### 2 005731, 48980710, 2912631, 2029388, 4366469, 10695460 #### [facility] [address] [place] [address] BMPon 06-18-2023 Creatinine [Mass/Vol] 0.7 mg/dL Normal 0.5-1.[address] [facility] Comment on above: Performed By: #### 2 420814, 38514025, 3611617, 1681493, 2374222, 63769213 #### [facility] [address] [place] [address] Urea nitrogen [Mass/Vol] 12 mg/dL Normal 5-21 [facility] Comment on above: Performed By: #### 2 155867, 11959654, 1112179, 9710910, 1585379, 15300122 #### [facility] [address] [place] [address] Urea nitrogen/Creatinine [Mass ratio] 17 No Units Normal 10-20 [facility] Comment on above: Performed By: #### 2 178933, 56990577, 9394179, 6216177, 3630865, 59386011 #### [facility] [address] [place] [address] Anion gap [Moles/Vol] 16 mmol/L Normal 6-[address] [facility] Comment on above: Performed By: #### 2 276591, 63946863, 5966111, 6813051, 8029556, 41393916 #### [facility] [address] [place] [address] Calcium [Mass/Vol] 9.0 mg/dL Normal 8.9-11.1 [facility] Comment on above: Performed By: #### 2 745351, 41644962, 1452798, 3756444, 2751039, 29983191 #### [facility] [address] [place] [address] Chloride [Moles/Vol] 99 mmol/L Low 101-111 [facility] Comment on above: Performed By: #### 2 638960, 44142707, 5131586, 2170178, 2212283, 24914719 #### [facility] [address] [place] [address] CO2 [Moles/Vol] 26 mmol/L Normal 21-31 [facility] Comment on above: Performed By: #### 2 784623, 16618779, 9199026, 6947186, 9252251, 76720476 #### [facility] [address] [place] [address] Glucose [Mass/Vol] 123 mg/dL Normal 55-199 [facility] Comment on above: Result Comment: If t his glucose result represents a fasting glucose, interpretation should refer to the following reference range: 55-99 mg/dL Performed By: #### 2 946645, 31388384, 5474717, 6210883, 7616939, 78736046 #### [facility] [address] [place] [address] Potassium [Moles/Vol] 4.4 mmol/L Normal 3.5-5.[address] [facility] Comment on above: Performed By: #### 2 911039, 42322832, 4317306, 4445550, 1509277, 92247078 #### [facility] [address] [place] [address] Sodium [Moles/Vol] 137 mmol/L Normal 135-145 [facility] Comment on above: Performed By: #### 2 346094, 24441062, 6653912, 6332893, 4698588, 90613629 #### [facility] [address] [place] [address] Blood Gas Art, with Lytes, G katiana, [place] 06-18-2023 a/A Ratio Art 61.80 % Normal >=0.80 [facility] Comment on above: Performed By: #### 4 [id number] #### [facility] [address] [place] [address] AaDO2 Art 36.0 mmHg High 5.0-15.0 [facility] Comment on above: Performed By: #### 4 08599119 #### [facility] [address] [place] [address] Allens Test Positive Normal [facility] Comment on above: Performed By: #### 4 [id number] #### [facility] [address] [place] [address] Base Excess Arterial 2.2 mmol/L Low >=2.8 [facility] Comment on above: Performed By: #### 4 82164907 #### [facility] [address] [place] [address] cCa2+ Art 4.64 mg/dL Normal 4.40-5.30 [facility] Comment on above: Performed By: #### 4 [id number] #### [facility] [address] [place] [address] cCl- Art 101.0 mmol/L Normal 101.0-111.0 [facility] Comment on above: Performed By: #### 4 13274739 #### [facility] [address] [place] [address] cGlu Art 118 mg/dL High 55-99 [facility] Comment on above: Performed By: #### 4 15171855 #### [facility] [address] [place] [address] cK+ Art 3.9 mmol/L Normal 3.5-5.3 [facility] Comment on above: Performed By: #### 4 87906317 #### [facility] [address] [place] [address] cLac Art .7 mmol/L Normal .5-2.2 [facility] Comment on above: Performed By: #### 4 [id number] #### [facility] [address] [place] [address] stringed instrument tuner+ Art 136.0 mmol/L Normal 135.0-145.0 [facility] Comment on above: Performed By: #### 4 97737883 #### [facility] [address] [place] [address] Drawn by sharmaine akers Invalid Interpretation Code [facility] Comment on above: Performed By: #### 4 [id number] #### [facility] [address] [place] [address] FCOHb Art 3.4 % Normal 1.5-4.9 [facility] Comment on above: Result Comment: Refe rence range Nonsmoker <1.5% Smoker <5.0% Heavy Smoker <9.0% Performed By: #### 4 [id number] #### [facility] [facility] [address] [place] [address] FIO2 BG 21 Invalid Interpretation Code [facility] Comment on above: Performed By: #### 4 [id number] #### [facility] [address] [place] [address] FO2Hb Art 90.1 % Low 93.0-100.0 [facility] Comment on above: Performed By: #### 4 [id number] #### [facility] [address] [place] [address] HCO3 (Bld) [Moles/Vol] 26.2 mmol/L High 22.0-26.0 [facility] Comment on above: Performed By: #### 4 [id number] #### [facility] [address] [place] [address] Hemoglobin (Bld) [Mass/Vol] 16.9 g/dL Normal 12.0-17.0 [facility] Comment on above: Performed By: #### 4 [id number] #### [facility] [address] [place] [address] Oxygen saturation in Blood 93.3 % Low 95.0-100.0 [facility] Comment on above: Performed By: #### 4 [id number] #### [facility] [address] [place] [address] P CO2 Arterial 45.1 mmHg High 35.0-45.0 [facility] Comment on above: Performed By: #### 4 [id number] #### [facility] [address] [place] [address] P O2 Arterial 58.4 mmHg Low 80.0-100.0 [facility] Comment on above: Performed By: #### 4 [id number] #### [facility] [address] [place] [address] pH Arterial 7.398 Normal 7.350-7.450 [facility] Comment on above: Performed By: #### 4 [id number] #### [facility] [address] [place] [address] Sample Site R Radial Normal [facility] Comment on above: Performed By: #### 4 [id number] #### [facility] [address] [place] [address] Sample Type Arterial Draw Normal [facility] Comment on above: Performed By: #### 4 [id number] #### [facility] [address] [place] [address] CBC w/ Auto Diffon Erythrocyte distribution width (RBC) [Ratio] 14.3 % High 10.9-14.2 [facility] Comment on above: Performed By: #### 2 [id number], [id number], 3304957, 6488348, 2327129, [id number] #### [facility] [address] [id number] Hematocrit (Bld) [Volume fraction] 50.3 % High 37.7-49.0 [facility] Comment on above: Performed By: #### 2 351685, [id number], 0728533, 4444886, 8392465, [id number] #### [facility] [address] [place] [address] Hemoglobin (Bld) [Mass/Vol] 16.5 g/dL Normal 13.5-17.5 [facility] Comment on above: Performed By: #### 2 653306, [id number], 8748540, 7403965, 8357522, [id number] #### [facility] [address] [place] [address] MCH (RBC) [Entitic mass] 32.2 pg Normal 27.0-34.0 [facility] Comment on above: Performed By: #### 2 836911, [id number], 6218663, 6585420, 3322337, 97295304 #### [facility] [address] [place] [address] MCHC (RBC) [Mass/Vol] 32.8 g/dL Normal 31.4-36.[address] [facility] Comment on above: Performed By: #### 2 558075, [id number], 3920881, 9355704, 3051868, 47445340 #### [facility] [address] [place] [address] MCV (RBC) [Entitic vol] 98.0 fL Normal 80.0-100.0 [facility] Comment on above: Performed By: #### 2 904791, 20077466, 4573858, 8175234, 1928116, 50383410 #### [facility] [address] [place] [address] Platelet mean volume (Bld) [Entitic vol] 8.2 fL Normal 6.4-10.8 [facility] Comment on above: Performed By: #### 2 403185, 52665435, 1274146, 7200160, 3027208, 07666563 #### [facility] [address] [place] [address] Platelets (Bld) [#/Vol] 266.0 E9/L Normal 150.0-500.0 [facility] Comment on above: Performed By: #### 2 535862, 52061135, 5738273, 8579602, 5056942, 36622983 #### [facility] [address] [place] [address] RBC (Bld) [#/Vol] 5.1 E12/L Normal 4.3-5.9 [facility] Comment on above: Performed By: #### 2 851972, 92523186, 9157263, 8675627, 9468862, 22573393 #### [facility] [address] [place] [address] WBC corrected for nucl RBC Auto (Bld) [#/Vol] 18.5 E9/L High 4.0-11.0 [facility] Comment on above: Result Comment: Slid e reviewed by KD. Performed By: #### 2 138101, [id number], 2644578, 6720870, 6373541, 22634594 #### [facility] [address] [place] [address] CHEMISTRYOrdered By: SYSTEM SYSTEM on 06-18-2023 Troponin I.cardiac [Mass/Vol] 7.00 pg/mL Low 15.90 - 38.40 pg/mL FT Remisol Anion gap [Moles/Vol] 16 mmol/L Normal 6 - 16 mEq/L F C Remisol Calcium [Mass/Vol] 9.0 mg/dL Normal 8.9 - 11. 1 mg/dL [facility] Chloride [Moles/Vol] 99 mmol/L Low 101 - 1 11 mmol/L [facility] CO2 [Moles/Vol] 26 mmol/L Normal 21 - 31 mmol/L [facility] Creatinine [Mass/Vol] 0.7 mg/dL Normal 0.5 - 1.3 mg/dL [facility] GFR/1.73 sq M.predicted among non-blacks MDRD (S/P/Bld) [Vol rate/Area] 100 mL/min/1.73 m2 Normal >=59mL/min/1 .73 m2 [facility] Chem S Glucose [Mass/Vol] 123 mg/dL Normal 55 - 199 mg/dL [facility] Lactate [Mass/Vol] 1.1 mmol/L Normal 0.5 - 2.2 mmol/L [facility] Potassium [Moles/Vol] 4.4 mmol/L Normal 3.5 - 5.3 mmol/L [facility] Sodium [Moles/Vol] 137 mmol/L Normal 135 - 145 mmol/L [facility] Urea nitrogen [Mass/Vol] 12 mg/dL Normal 5 - 21 mg/dL [facility] Remisol Urea nitrogen/Creatinine [Mass ratio] 17 mg/mg Normal 10 - 20 [facility] Consent for Treatmenton 05-24 Consent for Treatment [id number] [facility] [id number] .[id number]:127 Normal [facility] FT Blood GasesOrdered By: Francisco Crystal on 06-18-2023 a/A Ratio Art 61.80 % Normal >=0.80% FT Resp Auto SS AaDO2 Art 36.0 mm[Hg] High 5.0 - 15.0 mmHg [facility] Resp Auto SS Allens Test Positive (06/18/23 6:39 PM) Normal [facility] Resp Auto SS Base Excess Arterial 2.2 mmol/L Low >=2.8mmol/L FTM C Resp Auto SS cCa2+ Art 4.64 mg/dL Normal 4.40 - 5.30 mg/dL FT Resp Auto SS cCl- Art 101.0 mmol/L Normal 101.0 - 111.0 mmol/L FT Resp Auto SS cGlu Art 118 mg/dL High 55 - 99 mg/dL FT Resp Auto SS cK+ Art 3.9 mmol/L Normal 3.5 - 5.3 mmol/L [facility] Resp Auto SS cLac Art 0.7 mmol/L Normal 0.5 - 2.2 mmol/L FT Resp Auto SS stringed instrument tuner+ Art 136.0 mmol/L Normal 135.0 - 145.0 mmol/L [facility] Resp Auto SS Drawn by sharmaine akers Invalid Interpretation Code [facility] Resp Auto SS FCOHb Art 3.4 % Normal 1.5 - 4.9 % [facility] Resp Auto SS FIO2 BG 21 Invalid Interpretation Code [facility] Resp Auto SS FO2Hb Art 90.1 % Low 93.0 - 100.0 % [facility] Resp Auto SS HCO3 (Bld) [Moles/Vol] 26.2 mmol/L High 22.0 - 26.0 mmol/L [facility] Resp Auto SS Hemoglobin (Bld) [Mass/Vol] 16.9 g/dL Normal 12.0 - 17.0 gm/dL [facility] Resp Auto SS P CO2 Arterial 45.1 mm[Hg] High 35.0 - 45.0 mmHg [facility] Resp Auto SS P O2 Arterial 58.4 mm[Hg] Low 80.0 - 100.0 mmHg [facility] Resp Auto SS pH Arterial 7.398 Normal 7.350 - 7.450 [facility] Resp Auto SS Sample Site R Radial (06/18/23 6:39 PM) Normal [facility] Resp Auto SS Sample Type Arterial Draw (06/18/23 6:39 PM) Normal [facility] Resp Auto SS HEMATOLOGYOrdered By: SYSTEM SYSTEM on 06-18-2023 Basophils/100 WBC (Bld) 0.2 % Normal 0.0 - 2.0 % [facility] Basophils/Leukocytes Auto (Bld) [Pure # fraction] 0.0 E9/L Normal 0.0 - 0.2 E9/L [facility]eAutoSS Eosinophils/100 WBC (Bld) 0.0 % Normal 0.0 - 8.0 % [facility]eAutoSS Eosinophils/Leukocytes Auto (Bld) [Pure # fraction] 0.0 E9/L Normal 0.0 - 0.5 E9/L [facility]eAutoSS Lymphocytes/100 WBC (Bld) 27.1 % Normal 14.0 - 50.0 % [facility]eAutoSS Lymphocytes/Leukocytes Auto (Bld) [Pure # fraction] 5.0 E9/L High 1.0 - 4.0 E9/L [facility]eAutoSS Monocytes/100 WBC (Bld) 2.9 % Low 4.0 - 14.0 % [facility]eAutoSS Monocytes/Leukocytes Auto (Bld) [Pure # fraction] 0.5 E9/L Normal 0.2 - 1.0 E9/L [facility]AutoSS Neutrophils/100 WBC (Bld) 69.8 % Normal 36.0 - 75.0 % [facility]eAutoSS Neutrophils/Leukocytes Auto (Bld) [Pure # fraction] 12.9 E9/L High 2.0 - 7.5 E9/L [facility]eAutoSS HEMATOLOGYOrdered By: Trey Calvo on 06-18-2023 Erythrocyte distribution width (RBC) [Ratio] 14.3 % High 10.9 - 14.2 % [facility]Auto[facility] Hematocrit (Bld) [Volume fraction] 50.3 % High 37.7 - 49.0 % [facility]Auto[facility] Hemoglobin (Bld) [Mass/Vol] 16.5 g/dL Normal 13.5 - 17.5 gm/dL [facility]Auto[facility] MCH (RBC) [Entitic mass] 32.2 pg Normal 27.0 - 34.0 pg [facility] MCHC (RBC) [Mass/Vol] 32.8 g/dL Normal 31.4 - 36.0 gm/dL [facility] MCV (RBC) [Entitic vol] 98.0 fL Normal 80.0 - 100.0 fL [facility]Auto[facility] Platelet mean volume (Bld) [Entitic vol] 8.2 fL Normal 6.4 - 10.8 fL [facility]Auto[facility] Platelets (Bld) [#/Vol] 266.0 E9/L Normal 150.0 - 500.0 E9/L [facility]Auto[facility] RBC (Bld) [#/Vol] 5.1 E12/L Normal 4.3 - 5.9 E12/L [facility]eAuto[facility] WBC corrected for nucl RBC Auto (Bld) [#/Vol] 18.5 E9/L High 4.0 - 11.0 E9/L [facility] Comment on above: Result Comment: Slid e reviewed by KALPESH. Lactic Acidon 06-18-2023 Lactate [Mass/Vol] 1.1 mmol/L Normal 0.5-2.2 [facility] Comment on above: Performed By: #### 2 [id number], [id number], 4190845, 9112599, 0895841, [id number] #### [facility] [address] [place] [address] No Panel InformationOrdered By: ANGPROCESSSERVER MICROBIOLOGY on 06-18-2023 Blood Culture Charcoal No growth at 2 da ys. Final to follow at 7 days. [facility] Blood Culture Charcoal No growth at 2 da ys. Final to follow at 7 days. [facility] Referrals Officeon 3 Referrals Office [id number] .[id number]:127 Normal [facility] Troponin 0 Hr.on 06-18-2023 Troponin I.cardiac [Mass/Vol] 6.70 pg/mL Low 15.90-38.40 [facility] Comment on above: Result Comment: The 95% CI (Confidence Interval) PPV (Positive Predictive Value) for myocardial infarction in females is 38 pg/mL, in males 51 pg/mL. The results should be used in conjunction with clinical conditions of myocardial infarction. (Access High Sensitivity Troponin I Instructions For Use, Doron Rebecca, June 2018) Performed By: #### 2 538345, [id number], 4244020, 2625426, 3205900, [id number] #### [facility] [address] [place] [address] eGFRon 06-18-2023 GFR/1.73 sq M.predicted among non-blacks MDRD (S/P/Bld) [Vol rate/Area] 100 mL/min/1.73 m2 Normal >=59 [facility] Comment on above: Order Comment: Order added by Discern Expert. Result Comment: Toolroom Clerk neha kidney disease could be indicated at eGFR's of less than 60 mL/min/1.73m2. Kidney failure is indicated at less than 15 mL/min/1.73m2. Performed By: #### 2 478611, [id number], 2471244, 2733696, 9706851, 93392118 #### [facility] [address] [place] [address] Office Visit (Cardiology)on 04-30-2023 Follow-up visit Diagnoses/Problems Assessed CHF (NYHA class II, ACC/AHA stage C) (428.0) (I50.9) ASCVD (arteriosclerotic cardiovascular disease) (429.2,440.9) (I25.10) Hyperlipidemia (272.4) (E78.5) Hypertension (401.9) (I10) Current every day smoker (305.1) (F17.200) 1 PPD COPD (chronic obstructive pulmonary disease) (496) (J44.9) Overweight with body mass index (BMI) of 29 to 29.9 in adult (278.02,V85.25) (E66.3,Z68.29) Orders ASCVD (arteriosclerotic cardiovascular disease), Hyperlipidemia Renew: Atorvastatin Calcium 40 MG Oral Tablet (Lipitor); TAKE 1 TABLET AT BEDTIME ASCVD (arteriosclerotic cardiovascular disease), Intermittent claudication Renew: Aspirin EC Low Dose 81 MG Oral Tablet Delayed Release; TAKE 1 TABLET DAILY DIRECTED Overweight with body mass index (BMI) of 29 to 29.9 in adult Healthy Weight Tips; Status:Complete; Done: 30Apr2023 Some eating tips that can help you lose weight.; Status:Complete; Done: [id number] SocHx: Current every day smoker Tobacco Use Screening; Status:Complete; Done: 30Apr2023 You need to quit smoking.; Status:Complete; Done: 30Apr2023 Patient Instructions Please bring all medicines, vitamins, and herbal supplements with you when you come to the office. Prescriptions will not be filled unless you are compliant with your follow up appointments or have a follow up appointment scheduled as per instruction of your physician. Refills should be requested at the time of your visit. Follow up in 6 months Chief Complaint YAW HEADLEY is being seen for a 6 month follow-up of. History of Present Illness inspiratory and expiratory wheezes and rhonchi Patient returns in follow-up of problems as noted. He is done well and denies angina or anginal equivalent symptomatology. He continues to smoke and has active inspiratory expiratory wheezing and rhonchi. The paramount importance of smoking cessation was emphasized. He understands. In regards to his class II heart failure I cannot elicit or find any manifestations of said heart failure and because of this it appears to be well compensated. Lipids and hypertension appear to be adequately managed and because of all the above we suggest continued therapy without change. Surgical History Problems History of Cardiac catheterization History of Cataract surgery Denied: History of Complete colonoscopy History of Skin lesion excision Current Meds Medication NameInstruction Albuterol 90 MCG/ACT AERSINHALE 1 TO 2 PUFFS EVERY 4 TO 6 HOURS NEEDED AND DIRECTED. Aspirin EC Low Dose 81 MG Oral Tablet Delayed ReleaseTAKE 1 TABLET DAILY DIRECTED. Atorvastatin Calcium 40 MG Oral TabletTAKE 1 TABLET AT BEDTIME. Carvedilol 6.25 MG Oral TabletTake 1 tablet twice daily Entresto 97-103 MG Oral TabletTake 1 tablet twice a day Famotidine 20 MG Oral TabletTAKE 1 TABLET DAILY DIRECTED. Folic Acid 1 MG Oral TabletTAKE 1 TABLET DAILY EXCEPT ON METHOTREXATE DAYS. Ipratropium-Albuterol 0.5-2.5 (3) MG/3ML Inhalation SolutionUSE 1 UNIT DOSE IN NEBULIZER EVERY 4 HOURS NEEDED. Methotrexate 2.5 MG Oral TabletTAKE 6 TABLETS WEEKLY. Multi Vitamin Daily TABSTAKE 1 TABLET DAILY. Potassium 99 MG Oral TabletTAKE 1 TABLET DAILY DIRECTED. Spironolactone 25 MG Oral TabletTAKE 1/2 (ONE-HALF) TABLET BY MOUTH ONCE DAILY Trelegy Ellipta 100-62.5-25 MCG/INH AEPBas directed Allergies Medication Penicillins Recorded By: Nithin Rodriguez; 09/19/2021 2:54:24 PM Social History Problems Current every day smoker (305.1) (F17.200) 1 PPD Daily caffeine consumption, 6-8 servings a day No alcohol use No illicit drug use Review of Systems Constitutional: not feeling tired. Eyes: no eyesight problems. ENT: no hearing loss and no nosebleeds. Cardiovascular: no intermittent leg claudication and as noted in HPI. Respiratory: no chronic cough and no shortness of breath. Gastrointestinal: no change in bowel habits and no blood in stools. Genitourinary: no urinary frequency and no hematuria. Skin: no skin rashes. Neurological: no seizures and no frequent falls. Psychiatric: no depression and not suicidal. All other systems have been reviewed and are negative for complaint. Vitals Vital Signs Recorded: 30Apr2023 10:19AM Heart Rate72, L Radial Ogryndzq886, LUE, Sitting Klujsjnyo88, LUE, Sitting Height6 ft Kqotfy204 lb BMI Vczzjqvnpf69.16 kg/m2 BSA Calculated2.2 Tobacco Usea) Yes Patient encouraged to stop using tobacco productsYes Falls Screening (Age 18+)a) No falls within the last year Physical Exam Constitutional: alert and in no acute distress. Eyes: no erythema, swelling or discharge from the eye . Neck: neck is supple, symmetric, trachea midline, no masses and no thyromegaly . Pulmonary: no increased work of breathing or signs of respiratory distress and lungs clear to auscultation. Cardiovascular: carotid pulses 2+ bilaterally with no bruit , JVP was normal, no thrills , regular rhythm, normal S1 a (more content not included)... Normal [facility] Office Visit (Cardiology)on 11-25-2022 Follow-up visit Diagnoses/Problems Assessed ASCVD (arteriosclerotic cardiovascular disease) (429.2,440.9) (I25.10) Cardiomyopathy (425.4) (I42.9) Hyperlipidemia (272.4) (E78.5) Hypertension (401.9) (I10) COPD (chronic obstructive pulmonary disease) (496) (J44.9) Current every day smoker (305.1) (F17.200) 1 PPD CHF (NYHA class II, ACC/AHA stage C) (428.0) (I50.9) Overweight with body mass index (BMI) of 29 to 29.9 in adult (278.02,V85.25) (E66.3,Z68.29) Orders ASCVD (arteriosclerotic cardiovascular disease), Hyperlipidemia Changed: From Lipitor 40 MG Oral Tablet TAKE 1 TABLET AT BEDTIME To Atorvastatin Calcium 40 MG Oral Tablet (Lipitor) TAKE 1 TABLET AT BEDTIME ASCVD (arteriosclerotic cardiovascular disease), Intermittent claudication Renew: Aspirin EC Low Dose 81 MG Oral Tablet Delayed Release; TAKE 1 TABLET DAILY DIRECTED Cardiomyopathy, Chest pain Stop: Metoprolol Succinate ER 25 MG Oral Tablet Extended Release 24 Hour (Toprol XL) Cardiomyopathy, CHF (NYHA class II, ACC/AHA stage C) Start: Carvedilol 6.25 MG Oral Tablet; Take 1 tablet twice daily Overweight with body mass index (BMI) of 29 to 29.9 in adult Healthy Weight Tips; Status:Complete - Retrospective Authorization; Done: 25Nov2022 SocHx: Current every day smoker Tobacco Use Screening; Status:Complete; Done: 25Nov2022 You need to stop smoking. Though it is not easy, more than half of all adult smokers have quit. We encourage you to write down all the reasons you should quit smoking and set a quit date for yourself. Ask us how we can help. You may also call 7-019-VUHUNasza-klasa.plNOW for free resources and assistance.; Status:Complete - Retrospective Authorization; Done: 25Nov2022 Patient Instructions Please bring all medicines, vitamins, and herbal supplements with you when you come to the office. Prescriptions will not be filled unless you are compliant with your follow up appointments or have a follow up appointment scheduled as per instruction of your physician. Refills should be requested at the time of your visit. Patient educated on recognizing signs and symptoms Follow up in 6 months obtain recent lipid from PCP Chief Complaint YAW HEADLEY is being seen for a 6 month follow-up of. History of Present Illness Patient returns in follow-up of problems as noted. This is the first time I am seeing him after the snf of Dr. Rand. The patient's history was reviewed. He has no overt manifestations of angina CHF or arrhythmia. Signs and symptoms of heart failure and arrhythmia were discussed in detail and he denies them. He is done well on the current regimen. We note he is on a small dose of metoprolol succinate I believe switching to carvedilol would be superior because of this the change was made. He continues to smoke and the merits of smoking cessation were discussed in detail. His blood pressure and lipids otherwise appear to be adequately addressed. We also emphasized the merits of diet and weight loss as well as moderate activity and/or exercise and he understands the recommendation. Surgical History Problems History of Cardiac catheterization History of Cataract surgery Denied: History of Complete colonoscopy History of Skin lesion excision Current Meds Medication NameInstruction Albuterol 90 MCG/ACT AERSINHALE 1 TO 2 PUFFS EVERY 4 TO 6 HOURS NEEDED AND DIRECTED. Aspirin EC Low Dose 81 MG Oral Tablet Delayed ReleaseTAKE 1 TABLET DAILY DIRECTED. Calcium 600 MG TABSTAKE 1 TABLET DAILY. Entresto 97-103 MG Oral TabletTAKE 1 TABLET BY MOUTH TWICE A DAY Famotidine 20 MG Oral TabletTAKE 1 TABLET DAILY DIRECTED. Folic Acid 1 MG Oral TabletTAKE 1 TABLET DAILY EXCEPT ON METHOTREXATE DAYS. Ipratropium-Albuterol 0.5-2.5 (3) MG/3ML Inhalation SolutionUSE 1 UNIT DOSE IN NEBULIZER EVERY 4 HOURS NEEDED. Lipitor 40 MG Oral TabletTAKE 1 TABLET AT BEDTIME. Magnesium 400 MG Oral TabletTake 1 tablet daily Methotrexate 2.5 MG Oral TabletTAKE 6 TABLETS WEEKLY. Metoprolol Succinate ER 25 MG Oral Tablet Extended Release 24 HourTAKE 1 TABLET DAILY. Potassium 99 MG Oral TabletTAKE 1 TABLET DAILY DIRECTED. Spironolactone 25 MG Oral Tablettake 1/2 tablet daily Trelegy Ellipta 100-62.5-25 MCG/INH AEPBas directed Vitamin D3 25 MCG (1000 UT) Oral TabletTAKE 1 TABLET DAILY. Patient did not bring medication list or bottles. Updated verbally with patient Allergies Medication Penicillins Recorded By: Nithin Rodriguez; 09/19/2021 2:54:24 PM Social History Problems Current every day smoker (305.1) (F17.200) 1 PPD Daily caffeine consumption, 6-8 servings a day No alcohol use No illicit drug use Review of Systems Constitutional: not feeling tired. Eyes: no eyesight problems. ENT: no hearing loss and no nosebleeds. Cardiovascular: no intermittent leg claudication and as noted in HPI. Respiratory: no chronic cough and no shortness of breath. Gastrointestinal: no change in bowel habits and no blood in stools. Gen (more content not included)... Normal [facility] Tobacco Screening.on 023 Adult depression screening assessment No [facility] [employer] DO Work Phone: Fall risk assessment a) No falls within the last year [facility] [employer] DO Work Phone: Tobacco use status [facility] a) Yes [facility] [employer] DO Work Phone: Tobacco Screening. Yes [facility] [employer] DO Work Phone: CHEMISTRYOrdered By: SYSTEM SYSTEM on 08-08-2022 Albumin [Mass/Vol] 3.9 g/dL Normal 3.3 - 5.0 gm/dL [facility] Remisol Albumin/Globulin [Mass ratio] 1.3 {ratio} Normal 1.1 - 2.2 [facility] Remisol ALP [Catalytic activity/Vol] 72 [iU]/d Normal 21 - 98 Int._Unit/L [facility] Remisol ALT No additional P-5'-P [Catalytic activity/Vol] 23 [iU]/d Normal 6 - 46 Int._Unit/L [facility] Remisol Anion gap [Moles/Vol] 11 mmol/L Normal 6 - 16 mEq/L F [facility] Remisol AST [Catalytic activity/Vol] 19 [iU]/d Normal 5 - 43 Int._Unit/L [facility] Remisol Bilirubin [Mass/Vol] 0.9 mg/dL Normal 0.0 - 1 .1 mg/dL [facility] Remisol Calcium [Mass/Vol] 8.8 mg/dL Low 8.9 - 11. 1 mg/dL [facility] Remisol Chloride [Moles/Vol] 98 mmol/L Low 101 - 1 11 mmol/L [facility] Remisol CO2 [Moles/Vol] 30 mmol/L Normal 21 - 31 mmol/L [facility] Remisol Creatinine [Mass/Vol] 0.8 mg/dL Normal 0.5 - 1.3 mg/dL [facility] Remisol GFR/1.73 sq M.predicted among blacks MDRD (S/P/Bld) [Vol rate/Area] mL/min/1.73 m2 Normal >=59mL/min/1 .73 m2 FT Chem S GFR/1.73 sq M.predicted among non-blacks MDRD (S/P/Bld) [Vol rate/Area] mL/min/1.73 m2 Normal >=59mL/min/1 .73 m2 [facility] Chem S Globulin (S) [Mass/Vol] 2.9 g/dL Normal 1.4 - 4.0 gm/dL [facility] Remisol Glucose [Mass/Vol] 106 mg/dL Normal 55 - 199 mg/dL [facility] Remisol Potassium [Moles/Vol] 3.9 mmol/L Normal 3.5 - 5.3 mmol/L [facility] Remisol Protein [Mass/Vol] 6.8 g/dL Normal 6.0 - 7.8 gm/dL [facility] Remisol Sodium [Moles/Vol] 135 mmol/L Normal 135 - 145 mmol/L [facility] Remisol Urea nitrogen [Mass/Vol] 13 mg/dL Normal 5 - 21 mg/dL [facility] Remisol Urea nitrogen/Creatinine [Mass ratio] 16 mg/mg Normal 10 - 20 [facility] Remisol HEMATOLOGYOrdered By: Nuria Wilson on 08-08-2022 Band form neutrophils/100 WBC (Bld) 0 % Normal 0 - 10 % [facility] Basophils/100 WBC (Bld) 0 % Normal 0 - 2 % [facility] Eosinophils/100 WBC (Bld) 2 % Normal 0 - 8 % [facility] Erythrocyte distribution width (RBC) [Ratio] 14.8 % High 10.9 - 14.2 % [facility] Hematocrit (Bld) [Volume fraction] 46.9 % Normal 37.7 - 49.0 % [facility] Hemoglobin (Bld) [Mass/Vol] 15.5 g/dL Normal 13.5 - 17.5 gm/dL [facility] Lymphocytes/100 WBC (Bld) 34 % Normal 14 - 50 % [facility] MCH (RBC) [Entitic mass] 31.8 pg Normal 27.0 - 34.0 pg [facility] MCHC (RBC) [Mass/Vol] 33.1 g/dL Normal 31.4 - 36.0 gm/dL [facility] MCV (RBC) [Entitic vol] 96.0 fL Normal 80.0 - 100.0 fL [facility] HemeAutoSS Monocytes/100 WBC (Bld) 6 % Normal 4 - 14 % [facility] Morphology Umesh (Bld) [Interp] Normal (08/08/22 9:37 AM) Normal [facility] Platelet mean volume (Bld) [Entitic vol] 7.6 fL Normal 6.4 - 10.8 fL [facility] HemeAutoSS Platelets (Bld) [#/Vol] 328.0 E9/L Normal 150.0 - 500.0 E9/L [facility] RBC (Bld) [#/Vol] 4.9 E12/L Normal 4.3 - 5.9 E12/L [facility] Segmented neutrophils/100 WBC (Bld) 42 % Normal 36 - 75 % [facility] Variant lymphocytes LM Ql (Bld) 16 % Invalid Interpretation Code [facility] WBC corrected for nucl RBC Auto (Bld) [#/Vol] 15.6 E9/L High 4.0 - 11.0 E9/L [facility] Tobacco Screening.on 022 Adult depression screening assessment No [facility] 600 DO Work Phone: Fall risk assessment a) No falls within the last year [facility] 600 DO Work Phone: [phone] Tobacco use status CPHS a) Yes [facility] 600 DO Work Phone: [phone] Tobacco Screening. Yes [facility] 600 DO Work Phone: Tobacco Screening.on 021 Fall risk assessment a) No falls within the last year [facility] 600 DO Work Phone: [phone] Heart Rate Regular [facility] 600 DO Work Phone: [phone] Tobacco use status CPHS a) Yes [facility] 600 DO Work Phone: [facility] MUGA (GATED CARDIAC BLOO D POOL)on 10-09-2020 [facility] MUGA (GATED CARDIAC BLOOD POOL) Patient Name: YAW HEADLEY STUDY: MUGA Performing facility: [facility], [address] [place] [address], [address], [address] Provider: Max CHAVEZ PCP: Dr. KEYANA MARK Supervising provider: INDICATION: CHF ASCVD HISTORY: Gender: M; Age: 64 y/o ; Height: 182.88 cm; Weight: 98.7100571 kg. CAD HTN High Cholesterol; COPD Currently smoking. COMPARISON: Previous nuclear testing completed at [facility]. ACCESSION NUMBER(S): [id number] ORDERING CLINICIAN: SHITAL CHAVEZ TECHNIQUE: The patient received an IV injection of 3 ml of stannous pyrophosphate (PYP) using the in-vivo method of labeling red blood cells. After 15 minutes the patient received another IV injection of 26 mCi of Technetium 99m pertechnetate. Planar images of the left ventricle were obtained in the ESTONIAN 45, Lt Lateral and anterior projections. FINDINGS: The right ventricle was normal. The left ventricle was enlarged in size. Regional wall motion was abnormal. Global resting LVEF was abnormal- at 37 IMPRESSION: Normal resting right ventricular function. Abnormalresting left ventricular function. Left ventricular ejection fraction is 37%. When compared to study from May 2020 there has been no significant interval changes Electronically signed by: CICI BURKETT MD Normal [facility] MUGA SCAN INJECTIONon [facility] MUGA SCAN INJECTION Patient Name: YAW HEADLEY STUDY: MUGA Performing facility: [facility], [address] [place] [address], [address], [address] Provider: Max CHAVEZ PCP: Dr. KEYANA MARK Supervising provider: INDICATION: CHF ASCVD HISTORY: Gender: M; Age: 64 y/o ; Height: 182.88 cm; Weight: 98.1463535 kg. CAD HTN High Cholesterol; COPD Currently smoking. COMPARISON: Previous nuclear testing completed at [facility]. ACCESSION NUMBER(S): [id number] ORDERING CLINICIAN: SHITAL CHAVEZ TECHNIQUE: The patient received an IV injection of 3 ml of stannous pyrophosphate (PYP) using the in-vivo method of labeling red blood cells. After 15 minutes the patient received another IV injection of 26 mCi of Technetium 99m pertechnetate. Planar images of the left ventricle were obtained in the ESTONIAN 45, Lt Lateral and anterior projections. FINDINGS: The right ventricle was normal. The left ventricle was enlarged in size. Regional wall motion was abnormal. Global resting LVEF was abnormal- at 37 IMPRESSION: Normal resting right ventricular function. Abnormalresting left ventricular function. Left ventricular ejection fraction is 37%. When compared to study from May 2020 there has been no significant interval changes Electronically signed by: CICI BURKETT MD Normal [facility] MUGA SCAN INJECTIONon [facility] MUGA SCAN INJECTION Patient Name: YAW HEADLEY STUDY: MUGA Performing facility: [facility], [address], [address], [place] [address] [facility] Provider: Max RIVERO NP PCP: Dr. KELLEY RAND Supervising provider: LORE BURKETT INDICATION: CM ASCVD HISTORY: Gender: M; Age: 64 y/o ; Height: 182.88 cm; Weight: 106.054119 kg. HTN High Cholesterol; COPD Currently smoking. COMPARISON: Previous echo testing completed on01/2020 at [facility]. ACCESSION NUMBER(S): [id number] ORDERING CLINICIAN: SHITAL CHAVEZ TECHNIQUE: The patient received an IV injection of 3 ml of stannous pyrophosphate (PYP) using the in-vivo method of labeling red blood cells. After 15 minutes the patient received another IV injection of 26 mCi of Technetium 99m pertechnetate. Planar images of the left ventricle were obtained in the ESTONIAN 45, Lt Lateral and anterior projections. FINDINGS: The right ventricle was normal. The left ventricle was enlarged in size. Regional wall motion was abnormal. Global resting LVEF was abnormal- at 36%. IMPRESSION: Normal resting right ventricular function. Abnormalresting left ventricular function. Left ventricular ejection fraction is 36%. No previous studies are available for comparison Electronically signed by: CICI BURKETT MD Normal [facility] Vital Signs Date Time Vital Sign Value Performing Clinician Facility 11-11-2023 11:08-0500 Body height 182.9 cm Usman Ford MD Work Phone: [facility] 11-11-2023 11:08-0500 Body mass index (BMI) [Ratio] 28.89 kg/m2 Usman Ford MD Work Phone: [facility] 11-11-2023 11:08-0500 Body weight 96.62 kg Usman Ford MD Work Phone: [facility] 11-11-2023 11:08-0500 Diastolic blood pressure 70 mm[Hg] Usman Ford MD Work Phone: [facility] 11-11-2023 11:08-0500 Heart rate 80 /min Usman Ford MD Work Phone: [facility] 11-11-2023 11:08-0500 Systolic blood pressure 120 mm[Hg] Usman Ford MD Work Phone: [facility] 06-21-2023 12:33-0400 Heart rate 82 /min Mika STEFANI [facility] 06-21-2023 12:33-0400 Respiratory rate 20 /min Mika STEFANI [facility] 06-21-2023 12:24-0400 SaO2% (BldA) [Mass fraction] 94 % Mika STEFANI [facility] 06-21-2023 12:19-0400 Heart rate 84 /min Mika STEFANI [facility] 06-21-2023 12:19-0400 Respiratory rate 20 /min Mika STEFANI [facility] 06-21-2023 11:52-0400 Heart rate 85 /min Mika STEFANI [facility] 06-21-2023 11:52-0400 SaO2% (BldA) [Mass fraction] 93 % Mika STEFANI [facility] 06-21-2023 11:51-0400 Diastolic blood pressure 73 mm[Hg] Mika STEFANI [facility] 06-21-2023 11:51-0400 Mean blood pressure 90 mm[Hg] Mika STEFANI [facility] 06-21-2023 11:51-0400 Systolic blood pressure 123 mm[Hg] Mika STEFANI [facility] 06-21-2023 11:51-0400 Body temperature 98.24 [degF] Mika STEFANI [facility] 06-21-2023 10:56-0400 Hourly Rounding Mika STEFANI [facility] 06-21-2023 10:56-0400 Promise to Return Mika STEFANI [facility] 06-21-2023 09:44-0400 Hourly Rounding Mika STEFANI [facility] 06-21-2023 09:44-0400 Promise to Return Mika STEFANI [facility] 06-21-2023 08:34-0400 Respiratory rate 20 /min Mika STEFANI [facility] 06-21-2023 08:31-0400 SaO2% (BldA) [Mass fraction] 91 % Mika STEFANI [facility] 06-21-2023 08:06-0400 Hourly Rounding Mika STEFANI [facility] 06-21-2023 08:06-0400 Promise to Return Mika STEFANI [facility] 06-21-2023 07:24-0400 Diastolic blood pressure 84 mm[Hg] Mika STEFANI [facility] 06-21-2023 07:24-0400 Mean blood pressure 100 mm[Hg] Mika STEFANI [facility] 06-21-2023 07:24-0400 Systolic blood pressure 132 mm[Hg] Mika STEFANI [facility] 06-21-2023 07:23-0400 Body temperature 98.06 [degF] Mika STEFANI [facility] 06-21-2023 01:30-0400 Blood Pressure Location Mika STEFANI [facility] 06-21-2023 01:30-0400 Body temperature 98.24 [degF] Mika STEFANI [facility] 06-21-2023 01:30-0400 Diastolic blood pressure 81 mm[Hg] Mika STEFANI [facility] 06-21-2023 01:30-0400 Mean blood pressure 103 mm[Hg] Mika STEFANI [facility] 06-21-2023 01:30-0400 Systolic blood pressure 146 mm[Hg] Mika STEFANI [facility] 06-20-2023 19:27-0400 Body temperature 97.88 [degF] Mika STEFANI [facility] 06-20-2023 19:26-0400 Mean blood pressure 93 mm[Hg] Mika STEFANI [facility] 06-20-2023 07:26-0400 FIO2 32 % Mika STEFANI [facility] 06-20-2023 07:26-0400 Heart rate 90 /min Mika STEFANI [facility] 06-20-2023 03:15-0400 Blood Pressure Location Mika STEFANI [facility] 06-20-2023 03:15-0400 Body temperature 97.88 [degF] Mika STEFANI [facility] 06-20-2023 03:15-0400 Mean blood pressure 91 mm[Hg] Mika STEFANI [facility] 06-19-2023 20:21-0400 Heart rate 102 /min Mika STEFANI [facility] 06-19-2023 11:20-0400 Heart rate 111 /min Mika KO [facility] 06-19-2023 11:00-0400 Body temperature 97.34 [degF] Mika KO [facility] 06-19-2023 08:10-0400 Heart rate 101 /min Mika KO [facility] 06-19-2023 05:20-0400 Mean blood pressure 90 mm[Hg] Mika KO [facility] 06-18-2023 22:52-0400 Heart rate 107 /min Mika KO [facility] 06-18-2023 22:05-0400 Respiratory rate 22 /min Mika KO [facility] 06-18-2023 21:06-0400 Respiratory rate 19 /min Mika KO [facility] 06-18-2023 20:50-0400 Respiratory rate 21 /min Mika KO [facility] 06-18-2023 18:39-0400 SaO2% (BldA) [Mass fraction] 93.3 % Mika KO [facility] 06-18-2023 18:21-0400 Body temperature 99.32 [degF] Mika KO [facility] 11-25-2022 09:02-0500 Body height 182.88 cm Mike Albright Jas Work Phone: [facility] 600 DO Work Phone: 11-25-2022 09:02-0500 Body mass index (BMI) [Ratio] 29.84 kg/m2 Mike L Mark Work Phone: [facility] [employer] 600 DO Work Phone: 11-25-2022 09:02-0500 Body surface area Derived from formula 2.22 m2 Mike L Mark Work Phone: [facility] [employer] 600 DO Work Phone: 11-25-2022 09:02-0500 Body weight 99.79 kg Mike L Mark Work Phone: [facility] [employer] 600 DO Work Phone: 11-25-2022 09:02-0500 Diastolic blood pressure 64 mm[Hg] Mike L Mark Work Phone: [facility] [employer] 600 DO Work Phone: 11-25-2022 09:02-0500 Heart rate 80 /min Mike L Mark Work Phone: [facility] [employer] 600 DO Work Phone: 11-25-2022 09:02-0500 Systolic blood pressure 136 mm[Hg] Mike L Mark Work Phone: [facility] [employer] 600 DO Work Phone: 04-15-2022 10:59-0400 Body height 182.88 cm Mike L Mark Work Phone: [facility] [employer] 600 DO Work Phone: 04-15-2022 10:59-0400 Body mass index (BMI) [Ratio] 30.52 kg/m2 Mike Jose Ramon Mark Work Phone: [facility] [employer] 600 DO Work Phone: 04-15-2022 10:59-0400 Body surface area Derived from formula 2.24 m2 Mike Jose Ramon Mark Work Phone: [facility] 600 DO Work Phone: 04-15-2022 10:59-0400 Body weight 102.06 kg Mike Jose Ramon Mark Work Phone: [facility] 600 DO Work Phone: 04-15-2022 10:59-0400 Diastolic blood pressure 76 mm[Hg] Mike L Mark Work Phone: [facility] 600 DO Work Phone: 04-15-2022 10:59-0400 Heart rate 76 /min Mike L Mark Work Phone: [facility] 600 DO Work Phone: 04-15-2022 10:59-0400 Systolic blood pressure 118 mm[Hg] Mike Jose Ramon Mark Work Phone: [facility] 600 DO Work Phone: 10-01-2021 10:38-0500 Body height 185.42 cm Mike Jose Ramon Mark Work Phone: [facility] 600 DO Work Phone: 10-01-2021 10:38-0500 Body mass index (BMI) [Ratio] 29.95 kg/m2 Mike Jose Ramon Mark Work Phone: [facility] 600 DO Work Phone: 10-01-2021 10:38-0500 Body surface area Derived from formula 2.27 m2 Mike L Mark Work Phone: [facility] 600 DO Work Phone: 10-01-2021 10:38-0500 Body weight 102.97 kg Mike L Mark Work Phone: [facility] 600 DO Work Phone: 10-01-2021 10:38-0500 Diastolic blood pressure 62 mm[Hg] Mike Mark Work Phone: [facility] 600 DO Work Phone: 10-01-2021 10:38-0500 Heart rate 74 /min Mikealirio Mark Work Phone: [facility] 600 DO Work Phone: 10-01-2021 10:38-0500 Systolic blood pressure 106 mm[Hg] Mike Jose Ramon Mark Work Phone: [facility] 600 DO Work Phone: Encounters Encounter Date Encounter Type Care Provider Facility Start: 11-11-2023 End: 11-11-2023 ambulatory USMAN Ligia [facility] Ambulatory Start: 11-11-2023 End: 11-11-2023 Office outpatient visit 25 minutes Usman Ford MD Work Phone: [facility] Comment on above: ASCVD (arteriosclero tic cardiovascular disease) (Primary Dx); Dilated cardiomyopathy (CMS/HCC); Mixed hyperlipidemia; Primary hypertension; Other emphysema ([facility]/HCC); Current every day smoker Start: 11-05-2023 End: 11-06-2023 ambulatory RAY LOTT [place] Start: 09-23-2023 End: 09-24-2023 ambulatory RAY LOTT [facility] Start: 09-23-2023 End: 09-23-2023 Patient encounter procedure RAY LOTT [facility] Start: 08-05-2023 End: 08-06-2023 ambulatory NOHELIA CUEVAS [place] Start: 08-05-2023 End: 08-05-2023 Patient encounter procedure NOHELIA CUEVAS [facility] Start: 06-22-2023 End: 06-23-2023 Pre-admission assessment Marco Durant [facility] Start: 06-19-2023 End: 06-21-2023 Evaluation and management of inpatient Andrew CAGLE [place] Start: 06-18-2023 End: 06-21-2023 Evaluation and management of inpatient Mika KO [facility] Start: 04-30-2023 ambulatory Usman Ford Facilit y: Start: 01-16-2023 Rx Renewal Mike L Mark Work Phone: [facility] 250 DO Work Phone: Start: 01-05-2023 Telephone encounter Mike L Mark Work Phone: [facility] 250 DO Work Phone: Start: 11-25-2022 Office outpatient vi sit 25 minutes Mike L Mark Work Phone: [facility] 600 DO Work Phone: Start: 11-25-2022 ambulatory Usman Chahal y: Start: 10-08-2022 Rx Renewal Mike L Mark Work Phone: [facility] 250 DO Work Phone: Start: 08-26-2022 Rx Renewal Mkie L Mark Work Phone: [facility] 250 DO Work Phone: Start: 08-08-2022 End: 08-08-2022 Patient encounter procedure NOHELIA CUEVAS [facility] Start: 04-15-2022 Office outpatient vi sit 25 minutes Mike L Mark Work Phone: [facility] 600 DO Work Phone: Start: 02-17-2022 Rx Renewal Mike L Mark Work Phone: [facility] 600 DO Work Phone: Start: 10-01-2021 Office outpatient vi sit 25 minutes Mike Mark Work Phone: [facility] 600 DO Work Phone: Procedures Date Procedure Procedure Detail Performing Clinician Start: 12-23-2018 LEFT FOOT SKIN ADVAN CE FLAP WITH EXCISION OF NEOPLASM NOHELIA CEHEMA Start: 07-01-2016 left cataract extrac tion with IOL implant NOHELIA CEVASCO Start: 06-19-2016 Cataract Extraction with IOL placement - OD. NOHELIA CEDANIELLECO Cardiac catheterization Korin Mark Work Phone: Cataract surgery Mike Woodruff nicolas Work Phone: Excision of lesion of skin R ebalirio Jose Ramon Mark Work Phone: left upper arm surgery 1 KEYSHAWN EDA CEVASCO Comment on above: at age 9- unsure of procedure NEGATED: Highlighted row has not occurred! Total colonoscopy Mike Mark Work Phone: Plan of Treatment Date Care Activity Detail Author Start: 06-02-2026 DTaP/Tdap/Td Vaccines (2 - Td or Tdap) DTaP/Tdap/Td Vaccines (2 - Td or Tdap) [facility] Start: 08-17-2024 End: 08-17-2024 Patient encounter procedure 08/17/2024 10:50 AM EDT Office Visit [facility] [address] [place] [address] Usman Ford MD [address] [facility] [address] [place] [address] [facility] Start: 10-30-2023 COVID-19 Vaccine (4 - Pfizer series) COVID-19 Vaccine (4 - Pfizer series) [facility] Start: 04-30-2023 FUV, Provider: Usman Ford, Status: Pen, Time: 10:10 AM FUV, Provider: Usman Ford, Status: Pen, Time: 10:10 AM -[facility] 600 DO Work Phone: Start: 11-25-2022 FUV, Provider: Usman Ford, Status: Pen, Time: 9:10 AM FUV, Provider: Usman Ford, Status: Pen, Time: 9:10 AM -[facility] 250 DO Work Phone: Start: 11-11-2022 FUV, Provider: Usman Ford, Status: Pen, Time: 9:10 AM FUV, Provider: Usman Ford, Status: Pen, Time: 9:10 AM -[facility] 600 DO Work Phone: Start: 04-15-2022 FUV, Provider: Landry Rand, Status: Pen, Time: 11:00 AM FUV, Provider: Landry Rand, Status: Pen, Time: 11:00 AM -[facility] 600 DO Work Phone: Start: 02-12-2021 Echocardiography Echocardiogram [facility] Start: 2019 Abdominal aortic aneurysm screening Abdominal Aortic Aneurysm (AAA) Screening [facility] Start: 1972 Diabetes mellitus screening Diabetes Screening [facility] Start: 1972 Hepatitis C screening Hepatitis C Screening [facility] Start: 1954 Creatinine measurement Creatinine Level [facility] Start: 1954 Lipid panel Lipid Panel [facility] Start: 1954 Potassium measurement Potassium Level [facility] Start: 1954 Screening for malignant neoplasm of colon [facility] Start: 1954 Yearly Adult Physical Yearly Adult Physical [facility] Immunizations Immunization Date Immunization Notes Care Provider Fa cility 08-19-2022 Pfizer COVID-19 Vac Bivalent 30 MCG/0.3ML Intramuscular Suspension Mike L [facility] 600 [facility] Work Phone: 07-22-2022 Fluzone High-Dose Quadrivalent 0.7 ML Intramuscular Suspension Prefilled Syringe Mike L Mark Work Phone: [facility] 600 DO Work Phone: 07-22-2022 pneumococcal polysaccharide vaccine, 23 valent Mike L Mark Work Phone: [facility] 600 DO Work Phone: 02-21-2022 Comirnaty 30 MCG/0.3 ML Intramuscular Suspension Mike L Mark Work Phone: [facility] 600 DO Work Phone: 12-22-2021 zoster vaccine recombinant Mike L Mark Work Phone: [facility] 600 DO Work Phone: 08-25-2021 influenza, injectabl e, quadrivalent, contains preservative Mike L Mark Work Phone: [facility] 600 DO Work Phone: Comment on above: Series: 08-25-2021 H[employer] COVI D-19 Vacc 30 MCG/0.3ML Intramuscular Suspension Mike L Mark Work Phone: [facility] 600 DO Work Phone: 08-10-2021 zoster vaccine recombinant Mike L [facility] DO Work Phone: 07-11-2021 pneumococcal conjuga te vaccine, 13 valent Mike L Mark Work Phone: [facility] 600 DO Work Phone: 02-15-2021 Pfizer-BioNTech COVI D-19 Vacc 30 MCG/0.3ML Intramuscular Suspension Mike L Mark Work Phone: [facility] Comment on above: Reason for Medicatio n: Prophylaxis 01-25-2021 Pfizer-BioNTech COVI D-19 Vacc 30 MCG/0.3ML Intramuscular Suspension Mike L Mark Work Phone: [facility] Comment on above: Reason for Medicatio n: Prophylaxis 08-23-2020 influenza virus vacc ine, unspecified formulation Mike L [facility] Work Phone: 08-23-2020 influenza, seasonal, injectable Mike L Mark Work Phone: [facility] [employer] DO Work Phone: 08-09-2020 Fluzone High-Dose Quadrivalent 0.7 ML Intramuscular Suspension Prefilled Syringe Mike Jose Ramon [facility] Work Phone: 09-03-2019 Seasonal, quadrivale nt, recombinant, injectable influenza vaccine, preservative free Mike L Mark Work Phone: [facility] 600 DO Work Phone: 08-23-2019 influenza virus vacc ine, unspecified formulation Mike L Mark Work Phone: [facility] 600 DO Work Phone: 09-20-2018 influenza, injectabl e, quadrivalent, preservative free Mike L Mark [facility] DO Work Phone: 06-02-2016 tetanus toxoid, redu mary lou diphtheria toxoid, and acellular pertussis vaccine, adsorbed NOHELIA CEVASCO [facility] Payers Date Payer Category Payer Medicare [id number] 2020 Medicare MEDICARE MEDICAR E PART A AND B [id number] 2020-Present [address] [place] [address] [id number] 2018 Unknown 2018 Unknown [id number] 1954 Unknown [id number] 1954 Unknown [id number] 1954 Unknown [id number] 1954 Unknown [id number] 1954 Unknown [id number] 1954 Unknown [id number] 1954 Unknown [id number] Social History Date Type Detail Facility Start: 11-11-2023 No alcohol use No alcohol use [place] [address] DO Work Phone: Comment on above: 1 PPD; Start: 01-30-2020 Tobacco smoking status Ex-smoker (fi nding) [facility] Start: 11-11-2023 Sex Assigned At Male [facility] Start: 06-18-2023 Tobacco smoking status Heavy t obacco smoker (finding) [facility] Comment on above: 2 ppd Start: 11-11-2023 Tobacco smoking stat us NHIS Smokes tobacco daily [facility] History of tobacco use Cigarette Smoker [facility] Work Phone: Start: 11-11-2023 Tobacco use and exposure Smokeless tobacco non-user [facility] Work Phone: Start: 1955 Sex Assigned At Not on file [facility] Work Phone: Start: 11-01-2023 End: 11-11-2023 Exposure to SARS-CoV-2 (event) Not sure [facility] Functional Status Date Assessment Result Facility 06-18-2023 Functional Status No [facility] 06-18-2023 Functional Status [facility] Clinical Notes 10-23-2020 to 11-11-2023 Usman Ford MD - 11/11/2023 10:50 AM ESTPatient Instructions Note Date & Type Note Facility 11-11-2023 History of Presen t illness Narrative Subjective Yaw Headley is a 68 y.o. male Chief Complaint Follow-up HPI Bronchoscopy with Dr Lott Patient returns for follow-up of problems as noted. In the interim he had no anginal or anginal cloven symptomatology. Likewise he has had no symptoms suggestive of heart failure or cardiomyopathy and I would deem him to be functional class I. He is on guideline directed therapy including carvedilol and Entresto and spironolactone. He is doing well in this regard. He has a chest x-ray abnormality and apparently scheduled for bronchoscopy in the near future. I believe he is a suitable candidate for the procedure. He had only mild CAD at angiogram several years ago and his nonischemic dilated cardiomyopathy is asymptomatic and adequately treated. Because of this I have encouraged him to proceed as intended. I will correspond with the waste minimization technician in this regard. Visit Vitals BP 120/70 (BP Location: Right arm, Patient Position: Sitting) Pulse 80 Ht 1.829 m (6') Wt 96.6 kg (213 lb) BMI 28.89 kg/m Smoking Status Every Day BSA 2.22 m Objective Physical Exam Constitutional: Appearance: Normal appearance. He is normal weight. HENT: Nose: Nose normal. Neck: Vascular: No carotid bruit. Cardiovascular: Rate and Rhythm: Normal rate. Pulses: Normal pulses. Heart sounds: Normal heart sounds. Pulmonary: Effort: Pulmonary effort is normal. Abdominal: General: Bowel sounds are normal. Palpations: Abdomen is soft. Genitourinary: Rectum: Normal. Musculoskeletal: General: Normal range of motion. Cervical back: Normal range of motion. Right lower leg: No edema. Left lower leg: No edema. Skin: General: Skin is warm and dry. Neurological: General: No focal deficit present. Mental Status: He is alert. Psychiatric: Mood and Affect: Mood normal. Behavior: Behavior normal. Thought Content: Thought content normal. Judgment: Judgment normal. Current Medications Current Outpatient Medications: albuterol 90 mcg/actuation inhaler, Inhale 2 puffs every 4 hours if needed., Disp: , Rfl: aspirin 81 mg EC tablet, Take 1 tablet (81 mg) by mouth once daily., Disp: , Rfl: carvedilol (Coreg) 6.25 mg tablet, Take 1 tablet (6.25 mg) by mouth 2 times a day with meals., Disp: 180 tablet, Rfl: 3 Entresto 97-103 mg tablet, Take 1 tablet by mouth twice daily, Disp: 180 tablet, Rfl: 3 folic acid (Folvite) 1 mg tablet, Take 1 tablet (1 mg) by mouth once daily., Disp: , Rfl: ipratropium (Atrovent) 0.02 % nebulizer solution, , Disp: , Rfl: ipratropium-albuteroL (Duo-Neb) 0.5-2.5 mg/3 mL nebulizer solution, Take 3 mL by nebulization every 4 hours if needed., Disp: , Rfl: Lipitor 40 mg tablet, Take 1 tablet (40 mg) by mouth once daily at bedtime., Disp: , Rfl: methotrexate (Trexall) 2.5 mg tablet, Take 6 tablets (15 mg total) by mouth 1 (one) time per week., Disp: , Rfl: potassium gluconate 595 mg (99 mg) tablet, Take by mouth., Disp: , Rfl: sildenafil (Viagra) 50 mg tablet, Take 1 tablet (50 mg) by mouth once daily as needed for erectile dysfunction., Disp: , Rfl: spironolactone (Aldactone) 25 mg tablet, Take 0.5 tablets (12.5 mg) by mouth once daily., Disp: , Rfl: Trelegy Ellipta 100-62.5-25 mcg blister with device, Inhale see administration instructions. As directed, Disp: , Rfl: varenicline (Chantix) 0.5 mg tablet, Take 1 tablet (0.5 mg) by mouth 2 times a day. Take with full glass of water., Disp: , Rfl: Assessment/Plan 1. ASCVD (arteriosclerotic cardiovascular disease) Minimal CAD at coronary angiogram several years ago. 2. Dilated cardiomyopathy (CMS/HCC) Mild dilated cardiomyopathy. He was placed on guideline directed therapy and since then he has done well and I doubt significant cardiomyopathy or heart failure. 3. Mixed hyperlipidemia Good control on current therapy 4. Primary hypertension Good control on current therapy 5. Other emphysema (CMS/HCC) Lifelong smoking with COPD and emphysema. He may have lung cancer and is about to undergo bronchoscopy. Scribe Attestation By signing my name below, I, Saundra Whitt LPN , Scribe attest that this documentation has been prepared under the direction and in the presence of Usman Ford MD. documented in this encounter [facility] Work Phone: 11-11-2023 Instructions Saundra Suh LPN - 11/11/2023 10:50 AM EST Please bring all medicines, vitamins, and herbal supplements with you when you come to the office. Prescriptions will not be filled unless you are compliant with your follow up appointments or have a follow up appointment scheduled as per instruction of your physician. Refills should be requested at the time of your visit. Yaw Headley is clear for surgery from a cardiac standpoint documented in this encounter [facility] Work Phone: 06-26-2023 Note Microbiology PROCEDURE: Blood Culture Charcoal [R1] SOURCE: Blood BODY SITE: Arm R COLLECTED DATE/TIME: 06/18/2023 18:45 EDT RECEIVED DATE/TIME: 06/18/2023 19:33 EDT START DATE/TIME: 06/18/2023 19:33 EDT FREE TEXT SOURCE: Peripheral vein site #1 Karlos PA-C, Jonathan LOWERY-Gilberto, Jonathan FINAL REPORTS Final Report [] Verified Date/Time: 06/26/2023 07:00 EDT No growth at 7 days. Performing Locations R1: This test was performed at: [facility], [address] [place] [address], [id number] [place] [address], [facility] Comment on above: Performed By: #### [id number] #### [facility] [address] [place] [id number] 06-26-2023 Note Microbiology PROCEDURE: Blood Culture Charcoal [R1] SOURCE: Blood BODY SITE: Arm L COLLECTED DATE/TIME: 06/18/2023 18:59 EDT RECEIVED DATE/TIME: 06/18/2023 19:33 EDT START DATE/TIME: 06/18/2023 19:33 EDT FREE TEXT SOURCE: Iv Start Karlos LOWERY-C, Jonathan Everett PA-C, Jonathan FINAL REPORTS Final Report [] Verified Date/Time: 06/26/2023 07:00 EDT No growth at 7 days. Performing Locations R1: This test was performed at: [facility], [address] [place] [address], [address] [place] [address], [facility] Comment on above: Performed By: #### [id number] #### [facility] [address] [place] [id number] 06-21-2023 Evaluation + Plan note Extrac abdulkadir from: Title:Discharge Note Author:RUBEN CAMERON, Andrew Rodriguez e:06/21/23 Stable Discharge To, Anticipated II - Home with responsible caregiver Discharged to - Home independently home Discharge Diet(s): Low Sodium- 2000 mg (06/21/23 11:33:00) Prescriptions atorvastatin 40 mg Tab, 40 mg= 1 tab(s), Oral, Bedtime, 1 refills azithromycin 250 mg Tab, See Instructions, 3 refills Medrol 4 mg Tab, 1 packet(s), Oral, As Directed Mucinex 600 mg Tab-ER, 1200 mg= 2 tab(s), Oral, BID nicotine 14 mg/24 hr Transderm ER Film, 1 patch(es), TransDermal, Daily pentoxifylline 400 mg ER Tab, 400 mg= 1 tab(s), Oral, TID, 3 refills, Not taking Pro-Air HFA CFC free 90 mcg/inh MDI, 2 puff(s), Inhalation, q6hr, PRN, 6 refills Home aspirin 81 mg Oral EC Tab, 81 mg= 1 tab(s), Oral, Daily Calcium, Magnesium and Zinc oral tablet, 2 tab(s), Oral, Daily Coreg 6.25 mg Tab, 6.25 mg= 1 tab(s), Oral, BID Entresto 97 mg-103 mg oral tablet, 1 tab(s), Oral, BID methotrexate 2.5 mg Tab, 20 mg= 8 tab(s), Oral, q7day sildenafil 50 mg Tab, 50 mg= 1 tab(s), Oral, Daily, PRN spironolactone 25 mg Tab, 25 mg= 1 tab(s), Oral, Daily Trelegy Ellipta inhalation powder, 1 puff(s), Inhalation, Daily Vitamin D3 5000 intl units oral capsule, 5000 International_Unit= 1 cap(s), Oral, Daily With When Contact Information Mike Mark In 0 days [address] [facility], [address] [place] [address]- Business (1) Additional Instructions: Chronic Obstructive Pulmonary Disease, [id number] Acute Respiratory Failure, Adult Discharge time >30 min Extracted from: Title:Progress/SOAP Note Author:Sunshine KEATING, Tiff any Date:06/20/23 Acute hypoxemic respiratory failure (J96.01: Acute respiratory failure with hypoxia) Suspect 2/2 AECOPD H/o severe COPD (last PFTs 03/12, FEV1 35%) Smoker Plan: - Currently on 3L NC - Titrate O2 for sats 90-95% - Continue bronchodilators and mucomyst - Decrease solumedrol to 40mg q8h - D/c budesonide - Procal neg, no acute infiltrates on CXR - Send sputum cx and atypical w/u-pending - Continue azithromycin - Encourage IS and OOB - Encourage smoking cessation Cardiovascular -history of CAD, hypertension, hyperlipidemia Extracted from: Title:Pulmonary consult note Author:Tien Rios Jr. Date:06/19/23 1. Acute hypoxemic respirato ry failure (J96.01: Acute respiratory failure with hypoxia) Suspect 2/2 AECOPD H/o severe COPD (last PFTs 03/12, FEV1 35%) Smoker Plan: - Currently on 3L NC - Titrate O2 for sats 90-95% - Continue bronchodilators and mucomyst - Decrease solumedrol to 40mg q8h - D/c budesonide - Procal neg, no acute infiltrates on CXR - Send sputum cx and atypical w/u - Continue azithromycin - Encourage IS and OOB - Encourage smoking cessation Orders: methylPREDNISolone, 40 mg = 1 mL, Injection, IV Push, q8hr, Routine, Start date 06/19/23 12:00:00 EDT, 06/19/23 11:27:00 EDT Add on Test Addendum by Navneet CAMERON, Aleja sUman on June 19, 2023 12:42:58 EDT I have seen and evaluated the patient with the physician operations administrative assistant. His history, physical exam, assessment and plan were done in collaboration. I performed an independent physical examination. I agree with all the above. Acute hypoxic respiratory failure: Likely secondary to underlying COPD with acute exacerbation Chest x-ray appears unremarkable. Continue systemic steroids, antibiotics and bronchodilator therapy. We will benefit from a full PFT as an outpatient. The patient was counseled on smoking cessation and the effects of smoking on her underlying lung function and overall health status. Extracted from: Title:Admission H & P Author:Mika KO DO Date:06/19/23 1. COPD exacerbation (J44.1: Chronic obstructive pulmonary disease with (acute) exacerbation) Patient with severe COPD as suggested above based on pulmonary function studies from February 2020. We will check procalcitonin level with markedly elevated white cell count which could in part be due to prednisone he had recently been started as an outpatient also could be a stress response he is presently afebrile. He has had no contact with individuals suspected of having COVID he has been vaccinated. We will continue Zithromax, IV Solu-Medrol, albuterol and Atrovent and use Mucinex as well. Patient did have significant work of breathing even at rest. I have been advised that patient on presentation had sats in the mid 80s however cannot find this documented wraps opportunity for this to be documented was missed. On room air patient's oxygen saturation was 93%. Patient did not have an elevated PCO2 however his pH is within normal limits surprisingly as based on his work of breathing would anticipate the likely chronically elevated PCO2 slight at the very least respiratory acidosis. Consult with pulmonary medicine Ordered: Initial Hospital Care/Day High 75 Minutes [id number] 2. Chest pain (R07.9: Chest pain, unspecified) Patient states he had chest discomfort for over 2 hours. Despite this cardiac enzymes were within normal limits and he has a left bundle branch block which is not new. He states with nebulized treatments his him significantly improved. Ordered: Initial Hospital Care/Day High 75 Minutes [id number] 3. Coronary artery disease (I25.10: Atherosclerotic heart disease of [place] coronary artery without angina pectoris) Patient denies any prior history of myocardial infarct. Nuclear stress study from 16 May 2020 however demonstrated a moderate fixed perfusion defect in the inferior and septal apical delarosa. His ejection fraction was 27%. 3 months earlier and echocardiogram suggested ejection fraction of 45% with cardiology suggesting this was an improvement from November 2018 where he had an estimated ejection fraction of 30 to 35%. Patient denies any history of congestive heart failure though is at risk for such. I cannot find a more recent echocardiogram to see if there was improvement in systolic function. Patient was uncertain of his medications but at 1 point he was on lisinopril likely remains on this for afterload reduction. It is unlikely and will avoid beta-blockers in light of his severe COPD. Will await reconciliation of home meds to see if he is chronically on diuretics. Note he does have some mild edema that he did not realize it is uncertain however if he is still on Norvasc. Patient denies any orthopnea or any unexplained recent weight gain however. We will reduce patient's IV fluid that is recognized with COPD exacerbation there is risk for intravascular depletion with insensible losses concern as if given fluids and were to develop heart failure may be masked above. Ordered: Initial Hospital Care/Day High 75 Minutes 66699 4. Hypertension (I10: Essential (primary) hypertension) At 1 time was on lisinopril and Norvasc await completion of home med rec Ordered: Initial Hospital Care/Day High 75 Minutes [id number] 5. Hyperlipidemia (E78.5: Hyperlipidemia, unspecified) Patient was previously on atorvastatin await confirmation of home med Ordered: Initial Hospital Care/Day High 75 Minutes [id number] 6. Psoriasis (L40.9: Psoriasis, unspecified) States he has had a medication for this but he is uncertain what med it is on we will await reconciliation of home meds Ordered: Initial Hospital Care/Day High 75 Minutes [id number] Orders: acetaminophen, 325 mg = 1 tab(s), Tab, Oral, q4hr PRN Pain, Routine, Start date 06/18/23 23:27:00 EDT, 06/18/23 23:27:00 EDT albuterol, 2.5 mg, 3 mL, Soln-Inh, NEB, q2hr PRN Shortness of breath or wheezing, Routine, Start date 06/18/23 23:27:00 EDT albuterol-ipratropium, 3 mL, Soln-Inh, NEB, QID, Routine, Start date 06/19/23 8:00:00 EDT azithromycin + Sodium Chloride 0.9% intravenous solution 250 mL, 500 mg = 1 EA, Injection, IV Piggyback, Daily, Routine, Start date 06/19/23 9:00:00 EDT, 250 mL/hr, Infuse over 60 minute(s) docusate, 100 mg = 1 cap(s), Cap, Oral, Daily PRN Constipation, Routine, Start date 06/18/23 23:27:00 EDT, 06/18/23 23:27:00 EDT guaifenesin, 1,200 mg = 2 tab(s), Tab-ER, Oral, BID, Routine, Start date 06/19/23 9:00:00 EDT, 06/18/23 23:27:00 EDT heparin, 5,000 unit(s) = 1 mL, Injection, SubCutaneous, BID, Routine, Start date 06/19/23 9:00:00 EDT, 06/18/23 23:27:00 EDT methylPREDNISolone, 60 mg = 1.5 mL, Injection, IV Push, q6hr, Routine, Start date 06/19/23 6:00:00 EDT, 06/19/23 6:00:00 EDT ondansetron, 4 mg = 2 mL, Injection, IV Push, q6hr PRN Nausea/Vomiting, Routine, Start date 06/18/23 23:27:00 EDT, 06/18/23 23:27:00 EDT Sodium Chloride 0.9% intravenous solution 1,000 mL, 1,000 mL, IV, 30 mL/hr, Routine, Start date 06/19/23 3:02:00 EDT, 33.3 hour(s), Total volume (mL): 1,000, 100 kg, 2.25, m2 Activity As Tolerated Basic Metabolic Panel Cardiac Monitoring CBC w/ Auto Diff Consult to Pulmonology Evaluate For Pulmonary Rehabilitation Intake and Output Notify Provider Vital Signs Oxygen - Wean Oxygen Protocol Peak Expiratory Flow Place in Status Precautions Procalcitonin PT & PTT Pulse Oximetry Regular Diet Resuscitation Status - Full Smoking Cessation Instruction Sputum Culture Vital Signs Weight Weight Patient is admitted as general inpatient with the anticipation he will require greater than 2 midnight stay Addendum by Alirio KO DO on June 19, 2023 20:17:59 EDT Contacted by patient's RN advised that patient's medication was sent was unknown to middle of the evening with his and provided medication list had not yet been reconciled. I quickly reviewed the chart his home meds Entresto and Aldactone were resumed patient is on aspirin resumed atorvastatin I did not at this time resume his Coreg which presumably he is on with decreased ejection fraction because of acute exacerbation of COPD will defer to rounding hospitalist pulmonary service patient clinical response to treatment above as to appropriate timing for when to resume carvedilol. Patient is due for his methotrexate as he receives it every Thursday Extracted from: Title:ED Note Author:Mary Beth Montalvo PA-C Michael e:06/18/23 1. COPD exacerbation (J44.1: Chronic obstructive pulmonary disease with (acute) exacerbation) 2. Respiratory failure, acute and chronic (J96.20: Acute and chronic respiratory failure, unspecified whether with hypoxia or hypercapnia) Orders: ED Physician consult Hospitalist for continued care 67-year-old male with past medical history of COPD presents to the ED complaining of shortness of breath. In the ED patient is afebrile, initially hypoxic to the high 80s, tachycardic and normotensive. Patient was seen by PCP this morning, started on azithromycin and prednisone, took 1 dose of each orally. Labs reviewed and noted, ABG shows a pH of 7.398, mild hypercapnia with a pH of 45.1, and hypoxemia with a PaO2 of 58.4. Patient placed on 3 liters nasal cannula. Opponent negative x2, EKG without acute ST elevation or depression. Patient treated with additional Solu-Medrol in the ED as well as DuoNebs for his COPD exacerbation. Case was discussed with the hospitalist was agreeable to admission. Patient agreeable to plan. [facility]07-30-2023 NoteCRM entered the room to discuss dc planning. PCP, DME and insurance discussed. Patient is alert andinvolved in plan of care. Contact information given and whiteboard updated. will transport. Ptqualified for 2L, this was delivered to room, pt and educated on it. Hospitalists aware that O2 documentation needs added to the note. No further needs. CRM to follow.[facility]:Result Comment: Electronically Signed By: Florina Dixon\.br\Date and Time Signed: 06/21/23 11:56 [id number] NoteAdmission and Discharge Information Admit Date/Time:06/19/2023 07:58 Admitting Physician - Mika KO DO Consulting Physician - Tien Poole Jr., PA-C Admitting Diagnoses: Discharge Diagnoses 1. Acute hypoxemic respiratory failure, 06/19/2023 2. COPD exacerbation, 06/18/2023 3. Chest pain, 06/19/2023 4. Coronary artery disease, 06/19/2023 5. Hypertension, 06/19/2023 6. Hyperlipidemia, 06/19/2023 7. Psoriasis, 06/19/2023 Shortness of breath, 06/18/2023 Procedure History LEFT FOOT SKIN ADVANCE FLAP WITH EXCISION OF NEOPLASM (12/23/2018), left cataract extraction with IOL implant (07/01/2016), Cataract Extraction with IOL placement - OD. (06/19/2016), left upper arm surgery. Hospital Course 61-year-old white male past medical history hypertension, hyperlipidemia, chronic COPD, nicotine abuse who present emergency room shortness of breath. Assessment and plan 1. COPD exacerbation (J44.1: Chronic obstructive pulmonary disease with (acute) exacerbation) Seen and examined Clinically better Less SOB Less wheezing On nasal cannula 2 L Saturation 94% Continue albuterol Atrovent nebulizer Continue Solu-Medrol 40 mg IV every 8 Continue with azithromycin Mucinex twice daily Patient is still quite wheezy however he wants to go home. He refused to stay 1 more day. Desat study was done and he is qualified for oxygen. He will be discharged on Medrol Dosepak. Mucinex p.o. twice daily and nicotine patch. He was advised to stop smoking. Follow-up with his primary physician in the next few days. 2. Chest pain (R07.9: Chest pain, unspecified) Pleuritic chest pain Resolved Troponin were negative 3. Coronary artery disease (I25.10: Atherosclerotic heart disease of [place] coronary artery withoutangina pectoris) ASA daily Lipitor daily 4. Hypertension (I10: Essential (primary) hypertension) On Entresto 5. Hyperlipidemia (E78.5: Hyperlipidemia, unspecified) Lipitor daily 6. Psoriasis (L40.9: Psoriasis, unspecified) On Methotrexate Services Consulted Consult to Pulmonology - Ordered -- 06/18/23 23:27:00 EDT, COPD, Consult and Co-manage Physical Exam Vitals & Measurements T: 36.7 ?C(Axillary) TMIN: 36.6 ?C(Axillary) TMAX: 36.8 ?C(Oral) HR: 90(Monitored) RR: 20 BP: 132/84 SpO2: 91% WT: 96.2 kg General: alert, no acute distress Skin: warm, dry Head: no trauma, normocephalic Neck: Trachea midline, no adenopathy, no tenderness Eye: normal conjunctiva, sclera clear ENMT: TM's clear, oral mucosa moist, no pharyngeal erythema or exudate Cardiovascular: regular rate and rhythm, normal peripheral perfusion Respiratory: Lungs expiratory wheezes, respirations non labored Chest wall: no deformity. Gastrointestinal: soft, non distended, no tenderness, no guarding. Back: No tenderness, Normal ROM, Normal alignment. Extremities: no deformity, no trauma Neurological: oriented x 4, LOC appropriate for age, CN II-XII intact, motor strength equal & normal bilaterally, sensation equal & normal bilaterally, speech normal Psychiatric: cooperative, affect appropriate for age, normal judgement, normal psychiatric thoughts. Laboratory Results Automated Diff (06/19/2023) Neutro Auto - 61.3 % Lymph Auto - 37.0 % [place] Auto - 1.6 % Eos Auto - 0.0 % Basophil Auto - 0.1 % Neutro Absolute - 11.0 E9/L Lymph Absolute - 6.6 E9/L [place] Absolute - 0.3 E9/L Eos Absolute - 0.0 E9/L Basophil Absolute - 0.0 E9/L B-Type Natriuretic Peptide (06/19/2023) BNP - 84 pg/mL Blood Gas Art, with Lytes, Gluc, Lact (06/18/2023) pH Arterial - 7.398 P CO2 Arterial - 45.1 mmHg P O2 Arterial - 58.4 mmHg Base Excess Arterial - 2.2 mmol/L HCO3 Arterial - 26.2 mmol/L Total Hgb Art - 16.9 gm/dL FO2Hb Art - 90.1 % FCOHb Art - 3.4 % O2 Sat Art - 93.3 % stringed instrument tuner+ Art - 136.0 mmol/L cK+ Art - 3.9 mmol/L cCa2+ Art - 4.64 mg/dL cCl- Art - 101.0 mmol/L cGlu Art - 118 mg/dL cLac Art - 0.7 mmol/L AaDO2 Art - 36.0 mmHg a/A Ratio Art - 61.80 % Sample Type - Arterial Draw Sample Site - R Radial FIO2 BG - 21 Allens Test - Positive1 Drawn by - sharmaine akers [facility] (06/21/2023) Glucose Lvl - 141 mg/dL BUN - 16 mg/dL Creatinine - 0.6 mg/dL BUN/Creat Ratio - 27 Sodium Lvl - 138 mmol/L Potassium Lvl - 4.3 mmol/L Chloride - 100 mmol/L CO2 - 31 mmol/L AGAP - 11 mEq/L Calcium Lvl - 8.4 mg/dL BMP (06/19/2023) Glucose Lvl - 156 mg/dL BUN - 14 mg/dL Creatinine - 0.7 mg/dL BUN/Creat Ratio - 20 Sodium Lvl - 133 mmol/L Potassium Lvl - 4.1 mmol/L Chloride - 101 mmol/L CO2 - 27 mmol/L AGAP - 9 mEq/L Calcium Lvl - 8.4 mg/dL CBC w/ Auto Diff (06/19/2023) WBC - 17.9 E9/L RBC - 5.0 E12/L Hgb - 16.1 gm/dL Hct - 49.5 % MCV - 100.0 fL MCH - 32.4 pg MCHC - 32.4 gm/dL RDW - 13.7 % Platelet - 270.0 E9/L MPV - 8.4 fL eGFR (06/21/2023) eGFR - 105 mL/min/1.73 m2 Lactic Acid (06/18/2023) Lactic Acid Lvl - 1.1 mmol/L Manual Diff (06/19/2023) Segs (more content not included)...[facility] above: Result Comment: Electronically Signed By: RUBEN CAMERON, Andrew\.br\Date and Time Signed: 06/21/23 11:[id number] Hospital Discharge instructions Patient Education 06/21/2023 11:33:50 Chronic Obstructive Pulmonary Disease, [id number] Chronic Obstructive Pulmonary Disease Chronic obstructive pulmonary disease (COPD) is a long-term (chronic) lung problem. When you have COPD, it is hard for air to get in and out of your lungs. Usually the condition gets worse over time, and your lungs will never return to normal. There are things you can do to keep yourself as healthy as possible. What are the causes? Smoking. This is the most common cause. Certain genes passed from parent to child (inherited). What increases the risk? Being exposed to secondhand smoke from cigarettes, pipes, or cigars. Being exposed to chemicals and other irritants, such as fumes and dust in the work environment. Having chronic lung conditions or infections. What are the signs or symptoms? Shortness of breath, especially during physical activity. A long-term cough with a large amount of thick mucus. Sometimes, the cough may not have any mucus (dry cough). Wheezing. Breathing quickly. Skin that looks teixeira or blue, especially in the fingers, toes, or lips. Feeling tired (fatigue). Weight loss. Chest tightness. Having infections often. Episodes when breathing symptoms become much worse (exacerbations). At the later stages of this disease, you may have swelling in the ankles, feet, or legs. How is this treated? Taking medicines. Quitting smoking, if you smoke. Rehabilitation. This includes steps to make your body work better. It may involve a team of specialists. Doing exercises. Making changes to your diet. Using oxygen. Lung surgery. Lung transplant. Comfort measures (palliative care). Follow these instructions at home: Medicines Take jffc-tun-gsjjrhl and prescription medicines only as told by your doctor. Talk to your doctor before taking any cough or allergy medicines. You may need to avoid medicines that cause your lungs to be dry. Lifestyle If you smoke, stop smoking. Smoking makes the problem worse. Do not smoke or use any products that contain nicotine or tobacco. If you need help quitting, ask your doctor. Avoid being around things that make your breathing worse. This may include smoke, chemicals, and fumes. Stay active, but remember to rest as well. Learn and use tips on how to manage stress and control your breathing. Make sure you get enough sleep. Most adults need at least 7 hours of sleep every night. Eat healthy foods. Eat smaller meals more often. Rest before meals. Controlled breathing Learn and use tips on how to control your breathing as told by your doctor. Try: Breathing in (inhaling) through your nose for 1 second. Then, pucker your lips and breath out (exhale) through your lips for 2 seconds. Putting one hand on your belly (abdomen). Breathe in slowly through your nose for 1 second. Your hand on your belly should move out. Pucker your lips and breathe out slowly through your lips. Your hand on your belly should move in as you breathe out. Controlled coughing Learn and use controlled coughing to clear mucus from your lungs. Follow these steps: 1.Lean your head a little forward. 2.Breathe in deeply. 3.Try to hold your breath for 3 seconds. 4.Keep your mouth slightly open while coughing 2 times. 5.Spit any mucus out into a tissue. 6.Rest and do the steps again 1 or 2 times as needed. General instructions Make sure you get all the shots (vaccines) that your doctor recommends. Ask your doctor about a flushot and a pneumonia shot. Use oxygen therapy and pulmonary rehabilitation if told by your doctor. If you need home oxygen therapy, ask your doctor if you should buy a tool to measure your oxygen level (oximeter). Make a COPD action plan with your doctor. This helps you to know what to do if you feel worse than usual. Manage any other conditions you have as told by your doctor. Avoid going outside when it is very hot, cold, or humid. Avoid people who have a sickness you can catch (contagious). Keep all follow-up visits. Contact a doctor if: You cough up more mucus than usual. There is a change in the color or thickness of the mucus. It is harder to breathe than usual. Your breathing is faster than usual. You have trouble sleeping. You need to use your medicines more often than usual. You have trouble doing your normal activities such as getting dressed or walking around the house. Get help right away if: You have shortness of breath while resting. You have shortness of breath that stops you from: ?Being able to talk. ?Doing normal activities. Your chest hurts for longer than 5 minutes. Your skin color is more blue than usual. Your pulse oximeter shows that you have low oxygen for longer than 5 minutes. You have a fever. You feel too tired to breathe normally. These symptoms may represent a serious problem that is an emergency. Do not wait to see if the symptoms will go away. Get medical help right away. Call your local emergency services (911 in the [place] Do not drive yourself to the hospital. Summary Chronic obstructive pulmonary disease (COPD) is a long-term lung problem. The way your lungs work will never return to normal. Usually the condition gets worse over time. There are things you can do to keep yourself as healthy as possible. Take hvvo-sbs-fyhzaqu and prescription medicines only as told by your doctor. If you smoke, stop. Smoking makes the problem worse. This information is not intended to replace advice given to you by your health care provider. Make sure you discuss any questions you have with your health care provider. Document Revised: 09/17/2021 Document Reviewed: 09/17/2021 [employer] Patient Education 2022 [employer] 06/21/2023 11:33:46 Acute Respiratory Failure, Adult Acute Respiratory Failure, Adult Acute respiratory failure is a condition that is a medical emergency. It can develop quickly, and it should be treated right away. There are two types of acute respiratory failure: Type I respiratory failure is when the lungs are not able to get enough oxygen into the blood. Thiscauses the blood oxygen level to drop. Type II respiratory failure is when carbon dioxide is not passing from the lungs out of the body. This causes carbon dioxide to build up in the blood. A person may have one type of acute respiratory failure or have both types at the same time. What are the causes? Common causes of type I respiratory failure include: Trauma to the lung, chest, ribs, or tissues around the lung. Pneumonia. Lung diseases, such as pulmonary fibrosis or asthma. Smoke, chemical, or water inhalation. A blood clot in the lungs (pulmonary embolism). A blood infection (sepsis). Heart attack. Common causes of type II respiratory failure include: Stroke. A spinal cord injury. A drug or alcohol overdose. A blood infection (sepsis). Cardiac arrest. What increases the risk? This condition is more likely to develop in people who have: Lung diseases such as asthma or chronic obstructive pulmonary disease (COPD). A condition that damages or weakens the muscles, nerves, bones, or tissues that are involved in breathing, such as myasthenia gravis or Guillain Crenshaw syndrome. A serious infection. A health problem that blocks the unconscious reflex that is involved in breathing, such as hypothyroidism or sleep apnea. What are the signs or symptoms? Trouble breathing is the main symptom of acute respiratory failure. Symptoms may also include: Fast breathing. Restlessness or anxiety. Breathing loudly (wheezing) and grunting. Fast or irregular heartbeats (palpitations). Confusion or changes in behavior. Feeling tired (fatigue), sleeping more than normal, or being hard to wake. Skin, lips, or fingernails that appear blue (cyanosis). How is this diagnosed? This condition may be diagnosed based on: Your medical history and a physical exam. Your health care provider will listen to your heart and lungs to check for abnormal sounds. Tests to confirm the diagnosis and determine the cause of respiratory failure. These tests may include: ?Measuring the amount of oxygen in your blood (pulse oximetry). The measurement comes from a small device that is placed on your finger, earlobe, or toe. ?Blood tests to measure blood oxygen and carbon dioxide and to look for signs of infection. ?Tests on a sample of the fluid that surrounds the spinal cord (cerebrospinal fluid) or a sample offluid that is drawn from the windpipe (trachea) to check for infections. ?Chest X-ray. ?Electrocardiogram (ECG) to look at the heart's electrical activity. How is this treated? Treatment for this condition usually takes place in a hospital intensive care unit (ICU). Treatmentdepends on what is causing the condition. It may include one or more of these treatments: Oxygen may be given through your nose or a face mask. A device such as a continuous positive airway pressure (CPAP) machine or bi- level positive airway pressure (BIPAP) machine may be used to help you breathe. The device gives you oxygen and pressure. Breathing treatments, fluids, and other medicines may be given. A ventilator may be used to help you breathe. The machine gives you oxygen and pressure. A tube is put into your mouth and trachea to connect the ventilator. ?If this treatment is needed longer term, a tracheostomy may be placed. A tracheostomy is a breathing tube put through your neck into your trachea. In extreme cases, extracorporeal life support (ECLS) may be used. This treatment temporarily takes over the function of the heart and lungs, supplying oxygen and removing carbon dioxide. ECLS gives the lungs a chance to recover. Follow these instructions at home: Medicines Take keuv-fuz-hclhalc and prescription medicines only as told by your health care provider. If you were prescribed an antibiotic medicine, take it as told by your health care provider. Do notstop using the antibiotic even if you start to feel better. If you are taking blood thinners: ?Talk with your health care provider before you take any medicines that contain aspirin or NSAIDs, such as ibuprofen. These medicines increase your risk for dangerous bleeding. ?Take your medicine exactly as told, at the same time every day. ?Avoid activities that could cause injury or bruising, and follow instructions about how to preventfalls. ?Wear a medical alert bracelet or carry a card that lists what medicines you take. General instructions Return to your normal activities as told by your health care provider. Ask your health care provider what activities are safe for you. Do not use any products that contain nicotine or tobacco, such as cigarettes, e- cigarettes, and chewing tobacco. If you need help quitting, ask your health care provider. Do not drink alcohol if: ?Your health care provider tells you not to drink. ?You are , may be , or are planning to become . Wear compression stockings as told by your health care provider. These stockings help to prevent blood clots and reduce swelling in your legs. Attend any physical therapy and pulmonary rehabilitation as told by your health care provider. Keep all follow-up visits as told by your health care provider. This is important. How is this prevented? If you have an infection or a medical condition that may lead to acute respiratory failure, make sure you get proper treatment. Contact a health care provider if: You have a fever. Your symptoms do not improve or they get worse. Get help right away if: You are having trouble breathing. You lose consciousness. You develop a fast heart rate. Your fingers, lips, or other areas turn blue. You are confused. These symptoms may represent a serious problem that is an emergency. Do not wait to see if the symptoms will go away. Get medical help right away. Call your local emergency services (911 in the [place] Do not drive yourself to the hospital. Summary Acute respiratory failure is a medical emergency. It can develop quickly, and it should be treated right away. Treatment for this condition usually takes place in a hospital intensive care unit (ICU). Treatmentmay include oxygen, fluids, and medicines. A device may be used to help you breathe, such as a ventilator. Take uslb-ilj-gnoszsr and prescription medicines only as told by your health care provider. Contact a health care provider if your symptoms do not improve or if they get worse. This information is not intended to replace advice given to you by your health care provider. Make sure you discuss any questions you have with your health care provider. Document Revised: 06/18/2022 Document Reviewed: 10/26/2020 [employer] Patient Education 2022 [employer]. Follow Up Care 06/18/2023 18:19:05 With:Mike Mark Address: [address] [place] [address], [address] [place] [id number] Business (1) When: Unknown [facility]07-28-2023 NoteChief Complaint SOB, increased work of breathing History of Present Illness Patient is a very pleasant 67-year-old white male with a past medical history of severe COPD. Pulmonary function studies from February 2020 suggested total lung capacity of 116% predicted, residual volume 205% predicted with moderate reduction in diffusion capacity of 60%. This was interpreted by pulmonology as severe COPD with diminished diffusion capacity suggestive of emphysema there was no bronchodilator response. Patient does not use oxygen at home. Patient denied any history of previous myocardial infarct however review of prior stress study suggest in April 2020 he had a moderate fixed perfusion deficit of the inferior septal and apical regions with an ejection fraction of 27%. An echocardiogram that had been done 3 months prior suggested severe paraseptal and apical wall motion abnormalities and ejection fraction of 45% which was interpreted by cardiology as being an improvement from November 2018 with the ejection fraction was 30 to 35%. Patient denies any prior history of known congestive heart failure. Her also denies history of hypertension though prior med list had included both Norvasc and lisinopril. Does have hyperlipidemia. He denies any history of peripheral vascular disease though he is on [place]. Confirms being on Viagra denies this being for pulmonary hypertension but states he uses it for erectile dysfunction. He does have psoriasis. It was noted that his home meds were not reconciled and patient acknowledged that I do not know the medications on Thursday wastoo many of them my is going to call in in the a.m. to identify my meds . He had advised nursing staff he did not wish his to be awoken over the meds. Patient presented to the emergency department with below Patient states he was approximately 5 PM last night where he started to have significant increase shortness of breath not associated with exertion. He states he did have pressure that did not radiateto his jaw or down his arm it was not pleuritic. States he had it for at least 2 hours, does not have it at present. He states his chest discomfort was improved significantly with bronchodilator. Patient states he has had a recent cough that has been productive. He denies any fevers or chills. He denies any symptoms to suggest aspiration. He denies any orthopnea ,he denies any peripheral edema and denied any recent unexplained weight gain. Patient had advised that he had seen his primary care physician ,who prescribed him prednisone and Zithromax on his date of presentation but his symptoms were not improving and he had mated to taking 2 steroid tabs . Patient was described as having significant increased work of breathing, it is noted that his respiratory rate was in the 30s. I first walked into the room, he excused himself to go to the bathroom and he was visibly significantly dyspneic with audible wheezing however insisted on walking to the bathroom. I had been advised by the emergency history department chair that patient sats were in the 80s. Patient does not use home O2. When I review documented pulse oximetry recordings the lowest I see is 91%. Blood gas had demonstrated elevated PCO2 with a normal pH and O2 sat of 93%. Patient states he was vaccinated against COVID even at booster shots. Denies any headache, loss of taste, nausea vomiting diarrhea or myalgias. Denies any close exposures with any respiratory illnesses Review of Systems Constitutional: no fever, no chills, no sweats, no weakness Skin: no Jaundice, no rash, no lesions, nopetechiae ENMT: no ear pain, no sore throat, no congestion, no hoarseness Respiratory: moderate to significantly shortness of breath, mild cough, no orthopnea, moderate wheezing Cardiovascular: moderate chest pain, resolved no palpitations, no edema Gastrointestinal: no nausea, no vomiting, no diarrhea, no GI bleeding Genitourinary: no dysuria, no hematuria, Musculoskeletal: no back pain, no trauma Neurologic: no headache, no dizziness, no numbness, no weakness Psychiatric: no sleeping problems, no irritability, no mood swings/depression. Heme/Lymph: no bleeding tendency, no bruising tendency, no petechiae, no swollen nodes Allergy/Immunologic: no seasonal allergies, no food allergies, no recurrent infections, no impairedimmunity Additional ROS info: Except as noted in the above Review of Systems and in the History of Present Illness all other systems have been reviewed and are negative or noncontributory. Scoring Miranda Fall Risk Score: 35 (06/18/23) Detailed Depression Screen Score: 0 (06/18/23) Total Depression Screen Score: 0 (06/18/23) Physical Exam Vitals & Measurements T: 36.4 ?C(Axillary) TMIN: 36.4 ?C(Axillary) TMAX: 37.4 ?C(Tympanic) HR: 102(Peripheral) RR: 28 BP:116/75 SpO2: 92% HT: 182.88 cm WT: 100 kg General: Patient was sitting up in the side of the bed with increased work of breathing, he was visibly wheezing Skin: warm, dry Head: no trauma, nor (more content not included)...[facility] Comment on above:Result Comment: Electronically Signed By: Mika KO DO\.br\Date and Time Signed: 06/19/23 20:19 [id number] NoteChief Complaint SOB, increased work of breathing Reason for Consultation Acute hypoxemic respiratory failure History of Present Illness Pt is a 67y M with past medical history significant for severe COPD (last PFTs 03/12, FEV1 35%), HFrEF, PVD, HLD, and HTN who presented to the ED on 06/18 with complaints of worsening SOB which startedan hour or so [employer]. Pt reports that around 1700 yesterday he began experiencing SOB at rest. He alsoreports some chest pain which started at the same time. He described his chest pain as pressure-like and without radiation. He reports that his chest pain improved after taking a breathing treatment.He states that he has had a mildly productive cough recently. Pt reports that he saw his PCP earlier in the day with complaints of SOB and was prescribed azithromycin and prednisone. Pt denies any fevers, chills, nausea, vomiting, or diarrhea. In the ED, pt was found to be in respiratory distress and hypoxemic on RA. He was placed on 2L NC with improvement. ABG on RA revealed pH 7.39, pCO2 45, and pO2 58. Laboratory workup revealed WBC 18.5k, but otherwise unremarkable. CXR without acute infiltrates. Pt was started on steroids, bronchodilators, and azithromycin and admitted to the hospitalistservice for further management. Pulmonary was consulted to assist in management of the pt's acute hypoxemic respiratory failure. 06/19: Pt is currently on 3L NC. He is visibly dyspneic at rest. Nursing staff reports that the pt had significant JENKINS. Pt reports that he is having a cough with some productive sputum. He denies any other complaints at this time. Review of Systems 12 point review of systems performed with patient, pertinent positives and negatives stated in HPI. Physical Exam Vitals & Measurements T: 36.2 ?C(Axillary) TMIN: 36.2 ?C(Axillary) TMAX: 37.4 ?C(Tympanic) HR: 104(Monitored) RR: 40 BP: 133/72 SpO2: 95% HT: 182.88 cm WT: 100 kg General: No acute distress Skin: Warm, dry. Flushed. Head: Atraumatic, normocephalic Neck: Trachea midline, no adenopathy, no tenderness Eye: PERRL, sclera anicteric ENMT: Moist mucous membranes Cardiovascular: Tachycardic. No murmurs, rubs, or gallops. No BLE edema. Respiratory: Tachypneic. Diffuse wheezing b/l, poor air exchange. No rhonchi or crackles. No stridor. + accessory muscle use. Chest wall: No deformity Gastrointestinal: Soft, non-tender, non-distended Back: No tenderness Extremities: No deformity Neurological: Awake and alert. Following commands. No focal deficit appreciated. Psychiatric: Cooperative. Affect appropriate for age. Images XR Chest Single View 06/18/23 19:07:20 Radiation Dose: Ka,r in mGy = na DAP = na Signed By: Romel Montejo MD 06/19/23 08:48:32 IMPRESSION: No acute radiographic abnormality. EXAMINATION: XR Chest Single View Clinical History: Shortness of breath (SOB) Comparison: 02/11/2020. RESULT: Hyperinflated lungs. No focal consolidation. No large pleural effusion. No pneumothorax. Stable cardiomediastinal silhouette. No acute osseous findings. Degenerative changes. Ordering Provider: Jonathan Everett Signed By: Romel Montejo MD Assessment/Plan 1. Acute hypoxemic respiratory failure (J96.01: Acute respiratory failure with hypoxia) Suspect 2/2 AECOPD H/o severe COPD (last PFTs 03/12, FEV1 35%) Smoker Plan: - Currently on 3L NC - Titrate O2 for sats 90-95% - Continue bronchodilators and mucomyst - Decrease solumedrol to 40mg q8h - D/c budesonide - Procal neg, no acute infiltrates on CXR - Send sputum cx and atypical w/u - Continue azithromycin - Encourage IS and OOB - Encourage smoking cessation Orders: methylPREDNISolone, 40 mg = 1 mL, Injection, IV Push, q8hr, Routine, Start date 06/19/23 12:00:00 EDT, 06/19/23 11:27:00 EDT Add on Test Problem List/Past Medical History Ongoing COPD Former heavy cigarette smoker (20-39 per day) HTN - Hypertension Hyperlipemia Smoker Historical Rapid heart rate Procedure/Surgical History LEFT FOOT SKIN ADVANCE FLAP WITH EXCISION OF NEOPLASM (12/23/2018), left cataract extraction with IOL implant (07/01/2016), Cataract Extraction with IOL placement - OD. (06/19/2016), left upper arm surgery. Medications Inpatient acetaminophen 325 mg Tab, 325 mg= 1 tab(s), Oral, q4hr, PRN acetylcysteine 10% Inhalation Juliet 4 mL, 200 mg= 2 mL, Inhalation, BID albuterol 0.083% Inh Juliet 3 mL, 2.5 mg= 3 mL, NEB, q2hr, PRN azithromycin additive + Sodium Chloride 0.9% intravenous solution 250 mL Colace 100 mg Cap, 100 mg= 1 cap(s), Oral, Daily, PRN DuoNeb 2.5 mg-0.5 mg/3 mL Soln-Inh, 3 mL, NEB, QID heparin 5000 units/mL Inj, 5000 unit(s)= 1 mL, SubCutaneous, BID methylPREDNISolone 40 mg preservative-free injection (SOLU-MEDROL), 40 mg= 1 mL, IV Push, q8hr Mucinex 600 mg Tab-ER, 1200 mg= 2 tab(s), Oral, BID nicotine 14 mg/24 hr Transderm ER Film, 14 mg= 1 patch(es), TransDermal, Daily NS 1000 mL Soln-IV 1,000 mL, 1000 mL, IV fabian (more content not included)...[facility] Result Comment: Electronically Signed By: Navneet CAMERON, Alisson Mary\.br\Date and Time Signed: 06/19/23 12:43 [id number] Evaluation + Plan note Diagnostic Tests Pending * Path. Review 08/08/22 [facility]12-01-2020 History of Present illness Narrative* Mr. Headley is a 65-year-old male who is seen back today for follow-up on his cardiomyopathy. Ejection fraction has been estimated most recently in the 35 to 40% range. Heart catheterization that was done in October 2020 demonstrated mild coronary disease with no intervention being done. He has significant COPD and remains a chronic cigarette smoker. He indicates he is trying to work on stopping smoking. He appears to be doing well on his current medications. * Physical exam: * Neck: No carotid bruits are heard * Lungs: Diffuse rhonchi * Heart: Regular rate and rhythm without murmurs or extra sounds * Extremities: No significant edema * Recommendation is continuation of his current medications. He seems to be clinically stable on thisregimen. No changes were made today. I again encouraged him to work aggressively on stopping smoking. He is to return in [address] [facility] DO Work Phone: [phone] History of Present illness Narrative* Mr. Headley is a 66-year-old male who is seen back today for follow-up on his history of cardiomyopathy. Ejection fraction has been estimated mostly in the 35 to 40% range. Heart catheterization that was done in October 2020 demonstrated mild coronary disease and there was no intervention done. He is a chronic cigarette smoker and has significant COPD. He remains an active cigarette smoker currently. He has no cardiac complaints today. He does note some shortness of breath. No anginal symptoms. * Physical exam: * Neck: No carotid bruits are heard * Lungs: Diffuse rhonchi * Heart: Regular rate and rhythm without murmurs or extra sounds * Extremities: No edema * Recommendation is continuation of current cardiac medications. No changes were made. I discussed with him the importance of stopping smoking. He is to return in 6 months for follow-up. [facility] DO Work Phone: Evaluation note* Diagnosis ASCVD (arteriosclerotic cardiovascular disease)- Primary Unspecified cardiovascular disease Dilated cardiomyopathy (CMS/HCC) Other primary cardiomyopathies Mixed hyperlipidemia Primary hypertension Unspecified essential hypertension Other emphysema (CMS/HCC) Other emphysema Current every day smoker documented in this encounter [facility] Work Phone: History of Present illness NarrativePatient returns in follow-up of problems as noted. This is the first time I am seeing him after theretirement of Dr. Rand. The patient's history was reviewed. He has no overt manifestations of angina CHF or arrhythmia. Signs and symptoms of heart failure and arrhythmia were discussed in detail and he denies them. He is done well on the current regimen. We note he is on a small dose of metoprolol succinate I believe switching to carvedilol would be superior because of this the change was made. He continues to smoke and the merits of smoking cessation were discussed in detail. His blood pressure and lipids otherwise appear to be adequately addressed. We also emphasized the merits of diet and weight loss as well as moderate activity and/or exercise and he understands the recommendation.-[facility] DO Work Phone: Hospital course Narrative No data available for this section [facility] Discharge instructions No data available for this section [facility] No data available for this section [facility]Reason for [facility] (narrative)* Consultation (Routine) - Authorized Specialty Diagnoses / Procedures Referred By Contac t Referred To Contact Cardiology Diagnoses ASCVD (arteriosclerotic cardiovascular disease) Procedures Follow Up In Cardiology Usman Ford MD [address] [place] [address] 2, Steven [address] [place] [id number] Usman Ford MD [address] [place] [address] 2, [address] [address] Referral ID Status Reason Start Date Expiration Date V isits Requested Visits Authorized [id number] Authorized 11/11/2023 11/10/2024 1 1 [facility] Work Phone: Summary Purpose Family History No Family History Records FoundUnknown Family Member Name Dates Details Family history of myocardial infarction: Mother(V17.3, Z82.49) Status:Active Family history of asthma: Br other(V17.5, Z82.5) Status:Active Family history of cerebrovas cular accident (CVA): Father(V17.1, Z82.3) Status:Active Family history of cardiac di sorder: Brother(V17.49, Z82.49) Status:Active Unknown Family Member Name Dates Details Family history of myocardial infarction: Mother(V17.3, Z82.49) Status:Active Family history of asthma: Br other(V17.5, Z82.5) Status:Active Family history of cerebrovas cular accident (CVA): Father(V17.1, Z82.3) Status:Active Family history of cardiac di sorder: Brother(V17.49, Z82.49) Status:Active Unknown Family Member Name Dates Details Family history of myocardial infarction: Mother(V17.3, Z82.49) Status:Active Family history of asthma: Br other(V17.5, Z82.5) Status:Active Family history of cerebrovas cular accident (CVA): Father(V17.1, Z82.3) Status:Active Family history of cardiac di sorder: Brother(V17.49, Z82.49) Status:Active Unknown Family Member Name Dates Details Family history of myocardial infarction: Mother(V17.3, Z82.49) Status:Active Family history of asthma: Br other(V17.5, Z82.5) Status:Active Family history of cerebrovas cular accident (CVA): Father(V17.1, Z82.3) Status:Active Family history of cardiac di sorder: Brother(V17.49, Z82.49) Status:Active Unknown Family Member Name Dates Details Family history of cardiac di sorder: Brother(V17.49, Z82.49) Status:Active Family history of cerebrovas cular accident (CVA): Father(V17.1, Z82.3) Status:Active Family history of asthma: Br other(V17.5, Z82.5) Status:Active Family history of myocardial infarction: Mother(V17.3, Z82.49) Status:Active Unknown Family Member Name Dates Details Family history of myocardial infarction: Mother(V17.3, Z82.49) Status:Active Family history of asthma: Br other(V17.5, Z82.5) Status:Active Family history of cerebrovas cular accident (CVA): Father(V17.1, Z82.3) Status:Active Family history of cardiac di sorder: Brother(V17.49, Z82.49) Status:Active Unknown Family Member Name Dates Details Family history of myocardial infarction: Mother(V17.3, Z82.49) Status:Active Family history of asthma: Br other(V17.5, Z82.5) Status:Active Family history of cerebrovas cular accident (CVA): Father(V17.1, Z82.3) Status:Active Family history of cardiac di sorder: Brother(V17.49, Z82.49) Status:Active Unknown Family Member Name Dates Details Family history of myocardial infarction: Mother(V17.3, Z82.49) Status:Active Family history of asthma: Br other(V17.5, Z82.5) Status:Active Family history of cerebrovas cular accident (CVA): Father(V17.1, Z82.3) Status:Active Family history of cardiac di sorder: Brother(V17.49, Z82.49) Status:Active Advance Directives No Advanced Directives Records FoundNo Advanced Directives Records FoundNo Advanced Directives Records FoundNo Advanced Directives Records FoundNo Advanced Directives Records Found Chief Complaint YAW HEADLEY is being seen for a 6 month follow-up of.YAW HEADLEY is being seen for a 6 month follow-up of.YAW HEADLEY is being seen for a 6 month follow-up of. Additional Source Comments (unrecognized sect ion and content) No Status Records FoundNo Status Records FoundNo Status Records FoundNo Status Records FoundNo Status Records Found INFORMATION SOURCE (unrecogn ized section and content) DATE CREATED AUTHOR 10/29/2020 [facility] DATE CREATED AUTHOR AUTHOR'S ORGANIZ ATION 05/05/2023 [facility] DATE CREATED AUTHOR AUTHOR'S ORGANIZ ATION 05/05/2023 [facility] DATE CREATED AUTHOR AUTHOR'S ORGANIZ ATION 11/07/2023 [facility] DATE CREATED AUTHOR AUTHOR'S ORGANIZ ATION 11/14/2023 [facility] Senior Economist Team (unrecognized sect ion and content) [employer] Relationship Specialty Start Date End Date Mike Mark, MANAGER [employer] PROGRAMMER PCP - General 10/09/20 Reason for Visit (unrecogniz ed section and content) Reason Comments Follow-up 4 mo FOR RECORDS PERTAINING TO PATIENTS WHO ARE OR HAVE BEEN ENROLLED IN A CHEMICAL DEPENDENCY/SUBSTANCEABUSE PROGRAM, SOME INFORMATION MAY BE OMITTED. This clinical summary was aggregated from multiple sources. Caution should be exercised in using it in the provision of clinical care. This summary normalizes information from multiple sources, and as a consequence, information in this document may materially change the coding, format and clinical context of patient data. In addition, data may be omitted in some cases. CLINICAL DECISIONS SHOULD BE BASED ON THE PRIMARY CLINICAL RECORDS. [facility]. provides no warranty or guarantee of the accuracy or completeness of information in this document.
[2023-11-25] MEDS: LACTATED RINGER'S SOLUTION 1,000 ML 50 ML IV ×2 (07:08→08:05)
[2023-11-25] MEDS: LIDOCAINE HCL 1% 100 MG/10 ML MDV 5 ML INJ (08:13)
--- NOTE | 2023-11-25 08:25 | FL_ITS ---
[address] [address] Patient Name: KORI HEADLEY MRN: [id number] date: 1955 Sex: M Assigned Patient Location: [facility] Current Patient Location: Accession/Order Number: [id number] Exam Date: 11/25/2023 07:50 Report Date: 11/26/2023 09:14 At the request of: RAY LOTT Procedure: FL fluoroscopy <1hr NON-READ EXAM: FL fluoroscopy <1hr NON-READ HISTORY: TECHNIQUE: FINDINGS: Please see Operative Report. Electronically authenticated by: RADIOLOGIST NO Date: 11/26/2023 09:14
--- NOTE | 2023-11-25 08:52 | XR_ITS ---
The [address] [address] Patient Name: KORI HEADLEY MRN: [id number] date: 1955 Sex: M Assigned Patient Location: [facility] Current Patient Location: [facility] Accession/Order Number: [id number] Exam Date: 11/25/2023 09:00 Report Date: 11/25/2023 09:11 At the request of: RAY LOTT Procedure: XR chest 1V EXAM: XR chest 1V HISTORY: . Left lung mass, s/p bronchoscopy - eval for PTX . COMPARISON: None. TECHNIQUE: Single view of the chest FINDINGS: Heart and vascularity are unremarkable. There is prominence of the left infrahilar region. No pneumothorax is identified. No effusion is noted. XR/XR chest 1V IMPRESSION: No pneumothorax status post bronchoscopy. Electronically authenticated by: JEAN CARLOS MORENO Date: 11/25/2023 09:11
--- NOTE | 2023-11-25 08:54 | P.ON_ITS ---
Date of procedure: 11/25/23 Procedure: Procedure: Diagnostic flexible bronchoscopy with bronchoalveolar lavage and transbronchial biopsies under fluoroscopic guidance Indication: LLL 5.6cm mass Post-op findings: 1. Diffuse inflammation 2. No endobronchial lesions Specimens: 1. Bronchoalveolar lavage of the left lower lobe 2. Left lower lobe transbronchial biopsies Description: Informed consent was obtained after risks, benefits, and alternatives were discussed with the patient.? Time out was initiated to confirm the correct patient, site, and procedure with all present voicing in the affirmative. Patient was brought to the operating room suite where noninvasive monitoring was utilized.? Sedation & anesthesia were administered by the anesthesia department- please refer to their records for further information.? Tape was placed over the patient's eyes to prevent spillage of secretions.? An 8.5 endotracheal tube was placed by anesthesia.? Due to placement of the endotracheal tube, the vocal cords and proximal 2/3 of the trachea were unable to be visualized. The bronchoscope reached the distal trachea where an additional 5mL of 1% lidocaine were instilled topically to the main farhan.? The main farhan was sharp without splaying or evidence of underlying mass. The bronchoscope was then advanced through the right main bronchus to the right upper lobe, where the apical, posterior, and anterior segments were visualized.? The bronchoscope was advanced through the bronchus intermedius to the right middle lobe or the medial and lateral segments visualized.? The bronchoscope was then advanced to the right lower lobe superior, medial, anterior, lateral, and posterior basilar segments.? No endobronchial lesions, exudate, or other abnormalities were noted. Diffuse inflammation was noted. The bronchoscope was retracted to the main farhan and advanced through the left main bronchus to the left upper lobe where the upper division apicoposterior and anterior, as well as lingular superior and inferior segments were visualized.? The bronchoscope was then advanced into the left lower lobe where the superior, anteromedial, lateral, and posterior basilar segments visualized.? No endobronchial lesions, exudate, or other abnormalities were noted. As with the right lung, there was diffuse inflammation throughout the left lung. Next, the bronchoscope was wedged into the left lower lobe and a bronchoalveolar lavage was obtained. After adequate fluid was obtained, transbronchial biopsies under fluoroscopic guidance were obtained from the left lower lobe. Despite studying the chest CT prior to the procedure, it was difficult to pinpoint a bronchus which I was able to advance the biopsy forceps that lead directly to the mass. Multiple biopsies were obtained in the vicinity of the mass with fl uoroscopic guidance. There was minimal bleeding. The bronchoscope was retracted. The patient tolerated the procedure well intraoperatively. The patient's was updated on the findings and his c ondition. Portable chest x-ray was obtained to evaluate for post-operative pneumothorax - results are pending at the time of this documentation. Fluoroscopy time: 1 minute, 26 seconds Anesthesia: GETA and Local (Lidocaine 1%, 5mL topically) Surgeon: Davonte Mcghee Estimated blood loss (mL): 1 Condition: stable Disposition: PACU
== END 2023-11-25 10:12 | disposition home or self-care (01) ==
PROVIDERS: Visit Provider Internal Medicine
PROC: (CPT 31624; principal; 2023-11-25 07:30)
DX: C34.32 Malignant neoplasm of lower lobe, left bronchus or lung (principal); I25.10 Atherosclerotic heart disease of native coronary artery without angina pectoris; F17.210 Nicotine dependence, cigarettes, uncomplicated; L40.0 Psoriasis vulgaris; J43.2 Centrilobular emphysema; I43 Cardiomyopathy in diseases classified elsewhere; Z79.51 Long term (current) use of inhaled steroids; J96.11 Chronic respiratory failure with hypoxia; G25.2 Other specified forms of tremor; K21.9 Gastro-esophageal reflux disease without esophagitis; E78.5 Hyperlipidemia, unspecified; I50.9 Heart failure, unspecified; I11.0 Hypertensive heart disease with heart failure
CPT/HCPCS: 31624; 31628; 36415; 71045; 76000; 87070; 87075; 87102; 87116; 87150; 87186; 87205; 87206; 88112; 88305; 88341; 88342; 94640; 99999; J1100; J2250; J2371; J2405; J2704